=== PATIENT | male | born 1930 | race Caucasian/White ===

== ENCOUNTER 2018-09-02 12:16 | Inpatient (IN) | payer MEDICARE, OTHER ==
[~2018-09-02] VITALS: Ht 172.7 cm; Wt 113.4 kg
[2018-09-02 12:20] VITALS: BP 127/72
--- NOTE | 2018-09-02 12:20 | NUR ---
ED Nurse Note: PT brought by [facility] from rehab center [facility] [place] due to ALOC. per EMS, pt was tachycardia and low pulse oximetry in RA which was 88%. upon arrival pt on 15L via NR and maintained 100%. RN changed to 3L via NC and maintained >94% due to pt has COPD. respirations even and non-labored noted. wheezing audiable. skin warm to touch. rashes noted on back below scrotum. pt had 1 x BM. cleaned. AAO x1. response to name and minimal pain. came with IV access that inserted by LAFD. 99.5 F rectal temp noted. on monitoring manager. will wait for the further order.
[2018-09-02] MEDS ORDERED: Solu-MEDROL 125mg Inj IVP ONE (12:45)
[2018-09-02] MEDS ORDERED: Albuterol ud Inhalation HHN ONE (12:45)
[2018-09-02] MEDS ORDERED: Ipratropium 0.02% Inh Soln 2.5ml UD HHN ONE (12:45)
[2018-09-02 13:00] VITALS: BP 132/51
[2018-09-02 13:12] LABS: APPEARANCE,URINE VERY CLOUDY; BILIRUBIN, URINE NEGATIVE (NEGATIVE); COLOR,URINE PALE YELLOW; GLUCOSE, URINE (UA) NEGATIVE (NEGATIVE); KETONES,URINE NEGATIVE (NEGATIVE); LEUKOCYTE ESTERASE ,URINE 3+ (NEGATIVE); NITRITE,URINE NEGATIVE (NEGATIVE); PH,URINE 6 (4.5-8.0); PROTEIN,URINE 3+ (NEGATIVE); UROBILINOGEN,URINE NORMAL MG/DL (0.0-1.0)
[2018-09-02 13:17] LABS: BASOPHILS % (AUTO) 2.9 % (0.0-2.0); EOSINOPHILS % (AUTO) 10.5 % (0.0-3.0); HEMATOCRIT 45.1 % (42.0-52.0); HEMOGLOBIN 15.1 G/DL (14.2-18.0); MEAN CORPUSCULAR VOLUME 96 FL (80-99); MONOCYTES % (AUTO) 13.4 % (1.0-10.0); NEUTROPHILS % (AUTO) 37.2 % (45.0-75.0); PLATELET COUNT 245 K/UL (150-450); RED BLOOD COUNT 4.72 M/UL (4.70-6.10); WHITE BLOOD COUNT 5.1 K/UL (4.8-10.8)
[2018-09-02 13:18] LABS: ANION GAP 10 mmol/L (5-15); BLOOD UREA NITROGEN 24 mg/dL (7-18); CALCIUM 8.9 MG/DL (8.5-10.1); CARBON DIOXIDE 27 MMOL/L (21-32); CHLORIDE 107 MMOL/L (98-107); CREATININE 1.4 MG/DL (0.55-1.30); SODIUM 144 MMOL/L (136-145)
--- NOTE | 2018-09-02 13:20 | NUR ---
ED Nurse Note: family member requested to be transferred to [facility] ER due to pt is been follow up there. RN educated the family member we can not do that at this time but will give update information.
[2018-09-02 13:34] LABS: ALANINE AMINOTRANSFERASE 56 U/L (12-78); ALBUMIN/GLOBULIN RATIO 0.8 (1.0-2.7); ALKALINE PHOSPHATASE 62 U/L (46-116); ASPARTATE AMINO TRANSFERASE 28 U/L (15-37); BILIRUBIN,TOTAL 0.5 MG/DL (0.2-1.0); CKMB < 0.5 NG/ML (0.0-3.6); CREATINE KINASE 9 U/L (26-308)
--- NOTE | 2018-09-02 13:52 | Diagnostic Imaging Report ---
Indication: Dyspnea Comparison: None A single view chest radiograph was obtained. Findings: Patchy infiltrates present bilaterally in the right infrahilar region and upper lobes. The upper lobe foci have a streaky linear appearance and could be scarring or atelectasis. There are no previous studies for comparison. Heart is enlarged. There is a pacemaker on the left. Bones are osteopenic. IMPRESSION: Suspected right pulmonary infiltrate. Upper lobe densities may be scarring.
[2018-09-02 14:00] VITALS: BP 101/77
[2018-09-02] MEDS ORDERED: DICYCLOMINE HCL10 MG PO (14:06)
[2018-09-02] MEDS ORDERED: ATORVASTATIN CA80 MG ORAL (14:06)
[2018-09-02] MEDS ORDERED: ALLOPURINOL100 M1 ORAL (14:06)
[2018-09-02] MEDS ORDERED: ASPIR 8181 MG ORAL (14:06)
[2018-09-02] MEDS ORDERED: PROSCAR5 MG ORAL (14:06)
[2018-09-02] MEDS ORDERED: BREO ELLIPTA 11 EACH IH (14:06)
[2018-09-02] MEDS ORDERED: ARICEPT10 MG ORAL (14:06)
[2018-09-02] MEDS ORDERED: METOPROLOL SUCC50 MG ORAL (14:06)
[2018-09-02] MEDS ORDERED: MELATONIN3 M1 ORAL (14:06)
[2018-09-02] MEDS ORDERED: AMIODARONE HCL400 M1 ORAL (14:06)
[2018-09-02] MEDS ORDERED: NEXIUM40 MG ORAL (14:08)
[2018-09-02] MEDS ORDERED: MYRBETRIQ25 MG PO (14:08)
[2018-09-02] MEDS ORDERED: NAMENDA10 MG ORAL (14:08)
[2018-09-02] MEDS ORDERED: Ertapenem 1 GM in NS 55 ML IVPB ONE (14:15)
[2018-09-02 15:00] VITALS: BP_SYST 106; BP_SYST 110; BP_DIAS 40; BP_DIAS 50
--- NOTE | 2018-09-02 15:15 | Emergency Room Report ---
History of Present Illness General Chief Complaint: Altered Level of Consciousness Source: Family Member Present Illness HPI 87-year-old male presents ED for evaluation. Brought in by EMS from board and care for increased lethargy times one day. Patient appears tired. Afebrile. Patient has history of COPD. On oxygen. Patient unable to provide any additional history at this time. No signs of distress. No other aggravating relieving factors. No other associated symptoms Allergies: Coded Allergies: CEFTRIAXONE (Verified Allergy, Unknown, 09/02/18) LEVOFLOXACIN (Verified Allergy, Unknown, 09/02/18) VANCOMYCIN (Verified Allergy, Unknown, 09/02/18) Patient History Past Medical History: HTN, COPD, other - bladder cancer Past Surgical History: pacemaker Pertinent Family History: none Social History: Denies: smoking, alcohol use, drug use Immunizations: UTD Reviewed Nursing Documentation: PMH: Agreed; PSxH: Agreed Nursing Documentation-PMH Hx Hypertension: Yes Hx Pacemaker: Yes Hx COPD: Yes Hx Cancer: Yes - bladder Review of Systems All Other Systems: limited Physical Exam Vital Signs Date Time Temp Pulse Resp B/P (MAP) Pulse Ox O2 Delivery O2 Flow Rate FiO2 09/02/18 12:10 97.5 106 20 122/68 80 Room Air 09/02/18 12:20 3.0 09/02/18 12:53 100 Sp02 EP Interpretation: reviewed, normal General Appearance: alert, GCS 15, non-toxic, lethargic Head: normocephalic Eyes: bilateral eye normal inspection, bilateral eye PERRL ENT: normal ENT inspection Neck: normal inspection Respiratory: wheezing Cardiovascular #1: regular rate, rhythm, no edema Gastrointestinal: normal bowel sounds, non tender, soft, non-distended, no guarding, no rebound Rectal: deferred Genitourinary: no CVA tenderness Musculoskeletal: normal inspection Neurologic: other - lethargic Psychiatric: other - lethargic Skin: normal inspection Lymphatic: normal inspection Medical Decision Making Diagnostic Impression: Primary Impression: Altered level of consciousness Additional Impressions: UTI (urinary tract infection) Qualified Codes: N39.0 - Urinary tract infection, site not specified Pneumonia Qualified Codes: J18.1 - Lobar pneumonia, unspecified organism COPD (chronic obstructive pulmonary disease) Qualified Codes: J44.9 - Chronic obstructive pulmonary disease, unspecified ER Course Hospital Course 87-year-old M presenting to ED with SOB. h/o COPD. + lethargy Differential diagnoses include: Pneumonia, sepsis, UTI, dehyration Clinical course Patient placed on stretcher. On special service representative with stable vitals. After initial history and physical, I ordered nebulizer treatments. I ordered labs, IV fluids, EKG, chest x-ray, blood cultures, UA. Labs - no leukocytosis noted, hemoglobin/hematocrit stable, electrolytes okay, lactate okay, troponins negative, UA+ Bacteria CXR - R sided ifiltrate EKG - NSR, no acute ischemci changes interpreted by me Broad-spectrum antibiotics given. Discussed findings with family. They agreed to admission. Patient recently discharged from [facility] Case discussed with Dr. Lennon and he agreed to the patient to his service for further care and support I feel this is a highly complex case requiring extensive working including EKG/ Rhythm strip, Xray/CT/US, Blood/urine lab work, repeat exams while in ED, and administration of strong opiates/narcotics for pain control, admission to hospital or close patient follow up. Diagnosis - COPD exacerbation, ALOC, pneumonia, UTI Patient admitted to telemetry in serious condition Labs Test 09/02/18 12:25 09/02/18 12:40 09/02/18 13:20 White Blood Count 5.1 K/UL (4.8-10.8) Red Blood Count 4.72 M/UL (4.70-6.10) Hemoglobin 15.1 G/DL (14.2-18.0) Hematocrit 45.1 % (42.0-52.0) Mean Corpuscular Volume 96 FL (80-99) Mean Corpuscular Hemoglobin 32.1 PG (27.0-31.0) Mean Corpuscular Hemoglobin Concent 33.6 G/DL (32.0-36.0) Red Cell Distribution Width 13.0 % (11.6-14.8) Platelet Count 245 K/UL (150-450) Mean Platelet Volume 6.9 FL (6.5-10.1) Neutrophils (%) (Auto) 37.2 % (45.0-75.0) Lymphocytes (%) (Auto) 36.0 % (20.0-45.0) Monocytes (%) (Auto) 13.4 % (1.0-10.0) Eosinophils (%) (Auto) 10.5 % (0.0-3.0) Basophils (%) (Auto) 2.9 % (0.0-2.0) Sodium Level 144 MMOL/L (136-145) Potassium Level 4.0 MMOL/L (3.5-5.1) Chloride Level 107 MMOL/L (98-107) Carbon Dioxide Level 27 MMOL/L (21-32) Anion Gap 10 mmol/L (5-15) Blood Urea Nitrogen 24 mg/dL (7-18) Creatinine 1.4 MG/DL (0.55-1.30) Estimat Glomerular Filtration Rate mL/min (>60) Glucose Level 117 MG/DL (74-106) Lactic Acid Level 1.50 mmol/L (0.4-2.0) Calcium Level 8.9 MG/DL (8.5-10.1) Total Bilirubin 0.5 MG/DL (0.2-1.0) Aspartate Amino Transf (AST/SGOT) 28 U/L (15-37) Alanine Aminotransferase (ALT/SGPT) 56 U/L (12-78) Alkaline Phosphatase 62 U/L (46-116) Total Creatine Kinase 9 U/L (26-308) Creatine Kinase MB < 0.5 NG/ML (0.0-3.6) Creatine Kinase MB Relative Index 5.5 Troponin I 0.013 ng/mL (0.000-0.056) Pro-B-Type Natriuretic Peptide 308 pg/mL (0-125) Total Protein 6.7 G/DL (6.4-8.2) Albumin 3.0 G/DL (3.4-5.0) Globulin 3.7 g/dL Albumin/Globulin Ratio 0.8 (1.0-2.7) Urine Color Pale yellow Urine Appearance Very cloudy Urine pH 6 (4.5-8.0) Urine Specific [place] 1.010 (1.005-1.035) Urine Protein 3+ (NEGATIVE) Urine Glucose (UA) Negative (NEGATIVE) Urine Ketones Negative (NEGATIVE) Urine Blood 4+ (NEGATIVE) Urine Nitrite Negative (NEGATIVE) Urine Bilirubin Negative (NEGATIVE) Urine Urobilinogen Normal MG/DL (0.0-1.0) Urine Leukocyte Esterase 3+ (NEGATIVE) Urine RBC 5-10 /HPF (0 - 0) Urine WBC Tntc /HPF (0 - 0) Urine Squamous Epithelial Cells None /LPF (NONE/OCC) Urine Bacteria Few /HPF (NONE) Arterial Blood pH 7.433 (7.350-7.450) Arterial Blood Partial Pressure CO2 39.4 mmHg (35.0-45.0) Arterial Blood Partial Pressure O2 70.2 mmHg (75.0-100.0) Arterial Blood HCO3 25.7 mmol/L (22.0-26.0) Arterial Blood Oxygen Saturation 93.0 % (95-100) Arterial Blood Base Excess 1.5 (-2-2) Darci Test Positive EKG Diagnostic Results Rate: normal Rhythm: NSR ST Segments: no acute changes ASA given to the pt in ED: No Rhythm Strip Diag. Results EP Interpretation: yes Rhythm: NSR, no PVC's, no ectopy Chest X-Ray Diagnostic Results Chest X-Ray Diagnostic Results : Chest X-Ray Ordered: Yes # of Views/Limited/Complete: 1 View Indication: Shortness of Breath EP Interpretation: Yes Interpretation: no pneumothorax, other - R sided infiltrate Impression: Other - PNA Electronically Signed by: Electronically signed by Mannie Lozoya MD Last Vital Signs Date Time Temp Pulse Resp B/P (MAP) Pulse Ox O2 Delivery O2 Flow Rate FiO2 09/02/18 13:07 117 20 96 Non-Rebreather 10.0 100 09/02/18 12:20 99.5 127/72 Status: improved Disposition: ADMITTED INPATIENT Condition: Serious Referrals: Dyana Lennon MD (PCP) Mannie Lozoya MD Sep 02, 2018 15:15
[2018-09-02 16:00] VITALS: BP 111/47
--- NOTE | 2018-09-02 16:43 | Infectious Diseases Prog Note ---
Assessment/Plan Problems: (1) UTI (urinary tract infection) Assessment & Plan: will start meropenem empirically and obtain renal US (2) Altered level of consciousness Assessment & Plan: metabolic VS toxic , recommend brain MRI . neuro consult (3) Pneumonia Assessment & Plan: possible aspiration , due to altered metal status , already on meropenem, aspiration precaution (4) COPD (chronic obstructive pulmonary disease) Assessment & Plan: continue inhalers and antibiotics , titrate oxygen as needed (5) Bladder cancer Assessment & Plan: S/P prostatectomy and BCG treatment (6) History of lung cancer Assessment & Plan: S/P radiation therapy Subjective Allergies: Coded Allergies: CEFTRIAXONE (Verified Allergy, Unknown, 09/02/18) LEVOFLOXACIN (Verified Allergy, Unknown, 09/02/18) VANCOMYCIN (Verified Allergy, Unknown, 09/02/18) Objective Vital Signs Last 24 Hour Vital Signs Date Time Temp Pulse Resp B/P (MAP) Pulse Ox O2 Delivery O2 Flow Rate FiO2 09/02/18 15:00 98.3 88 17 106/40 97 Nasal Cannula 3.0 100 09/02/18 14:00 97 17 101/77 95 Nasal Cannula 3.0 09/02/18 13:07 117 20 96 Non-Rebreather 10.0 100 09/02/18 13:00 106 21 132/51 97 Nasal Cannula 3.0 09/02/18 12:53 112 20 96 Non-Rebreather 10.0 100 09/02/18 12:53 112 20 Non-Rebreather 10.0 100 09/02/18 12:20 102 14 Nasal Cannula 3.0 09/02/18 12:20 99.5 102 14 127/72 95 Nasal Cannula 3.0 09/02/18 12:10 97.5 106 20 122/68 80 Room Air Height (Feet): 5 Height (Inches): 8.00 Weight (Pounds): 250 Microbiology Date/Time Source Procedure Growth Status 09/02/18 12:10 Nasal Nares Influenza Types A,B Antigen ([facility]) - Final Complete Laboratory Tests Test 09/02/18 12:25 09/02/18 12:40 09/02/18 13:20 White Blood Count 5.1 K/UL (4.8-10.8) Red Blood Count 4.72 M/UL (4.70-6.10) Hemoglobin 15.1 G/DL (14.2-18.0) Hematocrit 45.1 % (42.0-52.0) Mean Corpuscular Volume 96 FL (80-99) Mean Corpuscular Hemoglobin 32.1 PG (27.0-31.0) H Mean Corpuscular Hemoglobin Concent 33.6 G/DL (32.0-36.0) Red Cell Distribution Width 13.0 % (11.6-14.8) Platelet Count 245 K/UL (150-450) Mean Platelet Volume 6.9 FL (6.5-10.1) Neutrophils (%) (Auto) 37.2 % (45.0-75.0) L Lymphocytes (%) (Auto) 36.0 % (20.0-45.0) Monocytes (%) (Auto) 13.4 % (1.0-10.0) H Eosinophils (%) (Auto) 10.5 % (0.0-3.0) H Basophils (%) (Auto) 2.9 % (0.0-2.0) H Sodium Level 144 MMOL/L (136-145) Potassium Level 4.0 MMOL/L (3.5-5.1) Chloride Level 107 MMOL/L (98-107) Carbon Dioxide Level 27 MMOL/L (21-32) Anion Gap 10 mmol/L (5-15) Blood Urea Nitrogen 24 mg/dL (7-18) H Creatinine 1.4 MG/DL (0.55-1.30) H Estimat Glomerular Filtration Rate mL/min (>60) Glucose Level 117 MG/DL (74-106) H Lactic Acid Level 1.50 mmol/L (0.4-2.0) Calcium Level 8.9 MG/DL (8.5-10.1) Total Bilirubin 0.5 MG/DL (0.2-1.0) Aspartate Amino Transf (AST/SGOT) 28 U/L (15-37) Alanine Aminotransferase (ALT/SGPT) 56 U/L (12-78) Alkaline Phosphatase 62 U/L (46-116) Total Creatine Kinase 9 U/L (26-308) L Creatine Kinase MB < 0.5 NG/ML (0.0-3.6) Creatine Kinase MB Relative Index 5.5 Troponin I 0.013 ng/mL (0.000-0.056) Pro-B-Type Natriuretic Peptide 308 pg/mL (0-125) H Total Protein 6.7 G/DL (6.4-8.2) Albumin 3.0 G/DL (3.4-5.0) L Globulin 3.7 g/dL Albumin/Globulin Ratio 0.8 (1.0-2.7) L Urine Color Pale yellow Urine Appearance Very cloudy Urine pH 6 (4.5-8.0) Urine Specific [place] 1.010 (1.005-1.035) Urine Protein 3+ (NEGATIVE) H Urine Glucose (UA) Negative (NEGATIVE) Urine Ketones Negative (NEGATIVE) Urine Blood 4+ (NEGATIVE) H Urine Nitrite Negative (NEGATIVE) Urine Bilirubin Negative (NEGATIVE) Urine Urobilinogen Normal MG/DL (0.0-1.0) Urine Leukocyte Esterase 3+ (NEGATIVE) H Urine RBC 5-10 /HPF (0 - 0) H Urine WBC Tntc /HPF (0 - 0) H Urine Squamous Epithelial Cells None /LPF (NONE/OCC) Urine Bacteria Few /HPF (NONE) Arterial Blood pH 7.433 (7.350-7.450) Arterial Blood Partial Pressure CO2 39.4 mmHg (35.0-45.0) Arterial Blood Partial Pressure O2 70.2 mmHg (75.0-100.0) L Arterial Blood HCO3 25.7 mmol/L (22.0-26.0) Arterial Blood Oxygen Saturation 93.0 % (95-100) L Arterial Blood Base Excess 1.5 (-2-2) Darci Test Positive Current Medications Medications (Trade) Dose Ordered Sig/Gaby Route PRN Reason Start Time Stop Time Status Last Admin Dose Admin Meropenem 1 gm/ Sodium Chloride 55 ml @ 110 mls/hr Q8HR IVPB 09/02/18 22:00 09/07/18 21:59 UNV Sodium Chloride 1,000 ml @ 100 mls/hr Q10H IV 09/02/18 14:45 10/02/18 14:44 09/02/18 14:46 Katelyn Nelson M.D. Sep 02, 2018 16:43
--- NOTE | 2018-09-02 17:19 | NUR ---
ED Nurse Note: reports given to RIGOBERTO Doe. will bring pt up after pt came back from CT head.
--- NOTE | 2018-09-02 17:42 | Diagnostic Imaging Report ---
Indication: Altered level of consciousness Technique: Contiguous 5 mm thick transaxial imaging of the head obtained in a Siemens Sensation [address] scanner. Soft tissue and bone windows generated. Automatic Exposure Control was utilized. Total Dose length Product (DLP): 1378.[address] Dose Index Volume (CTDIvol): 70.38 mGy Comparison: none Findings: There is moderate prominence of the ventricles, basal cisterns, and cerebral sulci consistent with atrophy. The ventricles are disproportionately enlarged. Moderate, nonspecific, white matter hypoattenuation is noted throughout the brain consistent with chronic small vessel disease. The study is significantly limited by motion. There is no midline shift, edema, acute hemorrhage, mass effect, or abnormal extra-axial fluid collections. Bones and extra osseous soft tissues are unremarkable. The right mastoid air cells are partially opacified. Impression: No acute intracranial bleed, mass effect or edema. Disproportionate enlargement of the ventricles. Normal pressure hydrocephalus not excluded. atrophy of the brain. Evidence of chronic small vessel disease involving white matter tracts. Right mastoiditis Study limited by motion The CT scanner at [facility] is accredited by the [employer] [employer] and the scans are performed using dose optimization techniques as appropriate to a performed exam including Automatic Exposure control.
--- NOTE | 2018-09-02 17:52 | NUR ---
NURSE NOTES: dReceived pt from Anya FRANKLIN. Pt is asleep with family at bed side. Pt is currently undergoing a ultrasound. Belongings list is in chart. IV is patent with no swelling or redness noted.
[2018-09-02] MEDS: Albuterol/Ipratropium 3ml neb HHN SCH ×2 (19:28→23:34)
--- NOTE | 2018-09-02 19:45 | History and Physical Report ---
DATE OF ADMISSION: 09/02/2018 CHIEF COMPLAINT: Respiratory distress and altered mental status. HISTORY OF PRESENT ILLNESS: This is an 87-year-old [place] male with a history of bladder cancer status post TURP and BCG in July 2017, history of non-small cell lung cancer status post radiation therapy in 2014, and history of vascular dementia, coronary artery disease, and sick sinus syndrome, status post pacemaker and history of COPD with dyspnea and encephalopathy. The patient was recently discharged from [facility] last week and was in the rehabilitation of [place]. The patient noticed this morning to have shortness of breath and was started on 4 liter of nasal cannula with O2 saturation of 88% at the rehabilitation. The patient also was slightly altered at the rehabilitation and can runner was called in and the patient was brought in for evaluation at [facility]. In the emergency room, the patient had a chest x-ray done showing patchy infiltrates bilaterally with the right infrahilar region and upper lobe infiltrate. He also had UA done that was consistent with a urinary tract infection. In the emergency room, the patient was started on ertapenem IV x1 dose for urinary tract infection. He will be admitted and we will have Pulmonary and ID evaluate the patient while in the hospital. 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 PAST SURGICAL HISTORY: Includes bladder biopsy with retrograde pyelogram, bronchoscopy, cystoscopy in 2012 and 2015 and then again cystoscopy in 2013 and 2015, again, history of pacemaker placement and mediastinoscopy, TURP in 04/23/2018, history of a ureteral stent placement and removal. FAMILY HISTORY: Includes history of cancer in the blood brother. No other cancer in the mother, sister, or father. ALLERGIES: Allergy to Levaquin and Rocephin and vancomycin. REVIEW OF SYSTEMS: Negative except for HPI. HOME MEDICATIONS: Please follow the medication list from the rehabilitation. PHYSICAL EXAMINATION: VITAL SIGNS: Temperature 98.3, pulse 88, respiration is 17, blood pressure 106/48, pulse ox 97% on 3 liters nasal cannula. GENERAL APPEARANCE: Alert. He is lethargic and not responding to commands. HEENT: Normocephalic, normochromic. Extraocular muscles intact. Throat is clear. NECK: Supple. No lymphadenopathy. LUNGS: Clear to auscultation bilaterally. Decreased breath sounds. CARDIOVASCULAR: Regular rate and rhythm. No murmur. No gallop. ABDOMEN: Soft, nontender, nondistended. Positive bowel sounds. EXTREMITIES: No edema, cyanosis, or clubbing. +2 pulses bilaterally. SKIN: No rash. NEUROLOGICAL: Does not respond to commands. Slightly hard to arouse, but stable. LABORATORY AND DIAGNOSTIC DATA: Include WBC 5.1, hemoglobin is 15.1, hematocrit 45.1, platelet count 245, neutrophils 37.2, lymphocytes 36, monos 13.4, eosinophils 10.5, basophils 2.9. Sodium 144, potassium 4, carbon dioxide 27, BUN 24, creatinine 1.4, glucose 117, lactic acid 1.5. Calcium 8.9. AST 28, ALT 56, alkaline phosphatase 62, total creatine kinase is 9. Troponin is less than 0.013. BNP 308. Protein is 6.7, albumin 3, globulin is 3.7, and UA showed very cloudy urine, +3 urine protein, +4 urine blood, and +3 leukocyte esterase, 5 to 10 RBCs, too many to count and WBC and few bacteria. Chest x-ray showed light pulmonary infiltrate in upper lobe at the density. EKG, normal sinus rhythm, no acute ischemic changes. IMPRESSION AND PLAN: The patient is an 87-year-old male with history of bladder cancer, status post transurethral resection of prostate and BCG in July 2017 with chronic obstructive pulmonary disease and vascular dementia and non-small cell lung cancer status post radiation in 2014, 2016, and 2018. 1. Urinary tract infection. We will start the patient on broad-spectrum antibiotic, meropenem and have ID follow the patient. 2. Hospital-acquired pneumonia and hypoxic respiratory failure, improved on breathing nasal cannula. We will start the patient on IV antibiotic to cover for pneumonia with meropenem. We will have Pulmonary see the patient while in-house. Blood and urine cultures will be sent and followed up. 3. Vascular dementia. We will continue home Namenda and Aricept. 4. Coronary artery disease. No ischemia on EKG. We will follow the patient on aspirin and Lipitor. Troponin is negative. 5. Chronic obstructive pulmonary disease. We will have breathing treatment. We will continue his Singulair, Advair, and have Pulmonary see the patient. 6. Hypertension. We will continue home medications, metoprolol-XL, right lower lobe non-small cell lung cancer status post radiation. We will have the patient follow up with his oncologist as an outpatient. 7. Sick sinus syndrome status post pacemaker placement. 8. BPH. We will continue home medications. 9. History of gout. No acute changes or flare up. We will continue allopurinol for now. The patient will be admitted for minimum of two-night stay for the diagnosis of urinary tract infection and pneumonia and will be discharged back to the rehabilitation following the admission. Dyana Lennon M.D. DR: RENAY JOB#: [id number] CC: [email or web address]
[2018-09-02 20:00] VITALS: BP 133/67
--- NOTE | 2018-09-02 20:00 | Consultation ---
DATE OF CONSULTATION: INFECTIOUS DISEASES CONSULTATION CONSULTING PHYSICIAN: Katelyn Nelson M.D. REQUESTING PHYSICIAN: Dyana Lennon M.D. REASON FOR CONSULTATION: UTI, possible aspiration pneumonia in an immunocompromised patient with multiple antibiotics allergy due to Levaquin, Rocephin, and vancomycin recommendation for antibiotics treatment. HISTORY OF PRESENT ILLNESS: The patient is an 87-year-old male with past medical history of bladder cancer status post TURP and BCG in July 2017, vascular dementia, coronary artery disease, sick sinus syndrome status post pacemaker placement, right lower lobe non-small cell lung cancer status post radiation therapy in 2014, 2016, and 2017, and COPD, who was recently admitted at [facility] from beginning of July until mid August with dyspnea and encephalopathy. The patient was found to have UTI due to lactobacillus. He had a blood culture, which grew coag-negative staph from 1 set only. The patient was treated with Zosyn initially for five days or so and he was observed in the hospital. He did not have any positive culture apart from the blood culture and urine culture. During his hospital stay, his blood culture was most likely contaminant with coag-negative staph, which he had it twice. The patient subsequently was discharged to [facility] for rehabilitation. The patient became altered, unresponsive and hypoxemic as per the [facility] report. When paramedics arrived. He was saturating 88%, but his saturation improved after he was placed on Ventimask. The patient was brought in to [facility] for further evaluation and management. The patient had a chest x-ray, which showed right pulmonary infiltrate and upper lobe density may be scarring, which was concerning for aspiration pneumonia. His urinalysis showed evidence of infection with too numerous white count, so Infectious Disease consultation was requested for antibiotics treatment and further management since he is allergic to multiple antibiotics including ceftriaxone, levofloxacin, and vancomycin. As of note, the patient is altered, unresponsive, cannot provide any history at this point. History was mainly obtained from the medical record and nursing staff. REVIEW OF SYSTEMS: Unable to obtain. The patient is altered, cannot provide any history. PAST MEDICAL HISTORY: Significant for benign prostatic hypertrophy, bladder cancer status post TURP and BCG, coronary artery disease, atrial fibrillation, COPD, GERD, hearing loss, hyperlipidemia hypertension, malignant neoplasm of the right lower lobe of the lung status post radiation, sick sinus syndrome status post pacemaker, and vascular dementia. PAST SURGICAL HISTORY: He had bladder biopsy with retrograde pyelogram, bronchoscopy, cystoscopy with mitomycin installation, pacemaker placement, mediastinoscopy, retrograde pyelogram, transurethral resection of bladder tumor, ureteral stent. FAMILY HISTORY: Significant for cancer in brother. No significant medical problem in his father, mother, and sister. ALLERGIES: He is allergic to Levaquin with rash, ceftriaxone unclear reason, and vancomycin with itching and pain at the site. MEDICATIONS: The patient received ertapenem in the emergency room. For the rest of his medications, please refer to MAR. LABORATORY DATA: Laboratories showed white count of 5.1, hemoglobin of 15.1, platelet count of 245,000. BUN of 24, creatinine of 1.4. AST of 28, ALT of 56. BNP of 308. Albumin of 3. Urinalysis showed +3 leukocyte esterase, 5 to 10 red blood cells, WBC too numerous to count, and few bacteria. Microbiology, influenza screening A and B both negative. IMAGING: Chest x-ray showed right pulmonary infiltrate upper lobe density, may be scarring. PHYSICAL EXAMINATION: VITAL SIGNS: Temperature 99.5, pulse 102, respirations 14, blood pressure 127/72, saturation 95% on 3 liters nasal cannula. GENERAL: Elderly male, lying in bed, altered, and unresponsive. Not in acute distress. HEENT: Normocephalic and atraumatic. Pupils minimally reactive to light. Moist oral mucosa. No exudate or thrush. NECK: Supple. No lymphadenopathy. CARDIOVASCULAR: Tachycardic. S1, S2 normal. No murmur or gallop. LUNGS: He had diminished breathing sounds at the bases with fine crackles. No wheezing or rhonchi. Normal breathing efforts. ABDOMEN: Soft, obese, nontender, and nondistended. Normal bowel sounds. No hepatosplenomegaly or ascites. EXTREMITIES: No edema or cyanosis. SKIN: He had mild redness in the perianal area due to diaper rash. No hives. No ulceration. ASSESSMENT AND RECOMMENDATION: 1. UTI in a patient with history of bladder cancer status post prostate resection and BCG treatment. We will send urine for culture. Start the patient on meropenem empiric coverage pending culture. We will order ultrasound to rule out obstruction. 2. Possible aspiration pneumonia due to altered mental status with right-sided infiltration. The patient will be on meropenem already to cover for pneumonia with aspiration precaution, keep head of bed more than 30-degree all the time. Monitor chest x-ray. 3. Altered level of consciousness, metabolic versus toxic. Recommend brain image to rule out any acute pathology and neuro consult. Keep NPO for now with aspiration precaution. 4. COPD. Continue inhalers with antibiotics, titrate oxygen as needed. 5. Bladder cancer status post TURP and BCG treatment, seems to be stable at this point. The patient will need follow up by his oncologist in the future. 6. History of lung cancer status post radiation therapy. Pulmonary team has been consulted for further evaluation. Thank you for the consult. ID will continue to follow. Please feel free to call with any question. Katelyn Nelson M.D. DR: SHIMON JOB#: [id number] CC:
--- NOTE | 2018-09-02 20:13 | NUR ---
HAND-OFF: Report given to RIGOBERTO Maddox. Plan of care endorsed
--- NOTE | 2018-09-02 20:30 | NUR ---
NURSE NOTES: Received report from RIGOBERTO Doe. Patient asleep, breathing even and unlabored on 4 L via NC, assessed by RT, changed to Venturi mask at 15 L at 55%, O2 sat at 96%. IV site on L hand #18, patent and intact. On condom catheter with yellow-colored output. No skin breakdown noted. Family members present at bedside and very involved with the care. Per son and daughter, patient is confused and does not communicate even in the SNF. sinus rhythm with 1st AVB at the desk monitor. Bed at lowest position, call light within reach. Will continue plan of care.
[2018-09-02] MEDS: Atorvastatin 80mg tab ORAL SCH (21:00)
[2018-09-02] MEDS: Dicyclomine 10mg Cap ORAL SCH (21:00)
[2018-09-02] MEDS: Meropenem 1 GM in NS 55 ML IVPB SCH (21:07)
--- NOTE | 2018-09-02 21:10 | NUR ---
NURSE NOTES: Patient asleep, opens eyes but closed them again, nonverbal, no s/sx of pain nor any discomfort noted. Still on Venturi mask at 15 L, RT assessed pt, O2 sat at 96%. Family members present at bedside, awaiting for Renal ultrasound result, spoke with tech, already sent to [facility]. Unable to give meds PO, pt's mouth swab with water but not swallowing anything at this time. ON ST for swallow eval. Keep patient clean dn dry. Will continue to monitor.
[2018-09-02] MEDS: Heparin 5000 units/ml inj SUBQ SCH (21:11)
[2018-09-03] VITALS: BP 126/62
--- NOTE | 2018-09-03 03:26 | NUR ---
NURSE NOTES: Patient asleep, breathing even and unlabored, O2 sat at 95%. Turned and repositioned at least q 2 hours, no s/sx of pain nor any discomfort at this time. Bed at lowest position, call light within reach. Will continue to monitor.
[2018-09-03 04:00] VITALS: BP 126/59
--- NOTE | 2018-09-03 07:27 | NUR ---
HAND-OFF: Report given to RIGOBERTO Mckeon. Endorsed plan of care.
[2018-09-03] MEDS: Albuterol/Ipratropium 3ml neb HHN SCH (07:39)
--- NOTE | 2018-09-03 07:40 | NUR ---
NURSE NOTES: Received report from Gloria FRANKLIN. Pt is awake, alert, oriented x1-2, Farsi speaking, able to communicate very minimal basic needs, per family pt has confusion. On 4L of oxygen via nasal cannula at sP02 94-96%. No signs/symptoms of any pain or discomfort noted or reported by pt. Condom cath in place draining clear/dark yellow urine. Skin is intact, however has redness in the perineal area, open to air, mireille-care completed by previous shift, will reassess and provide skin care as needed throughout my shift. Pt has ST eval ordered for today, was able to tolerate tea with soft easy chew diet with head of bed elevated at high worley's. Pt is currently placed on fall precautions, with bed in lowest position, two side rails up, brakes engaged, alarm on, and call light within easy reach. Will continue to monitor pt and follow plan of care per MD orders and protocol. Addendum: 09/03/18 at 1658 by ELADIO GAMA RN Per ST bedside eval recommendation, diet has been changed to Pureed Moist with nectar thick liquids, family aware. Pt is tolerating well.
[2018-09-03 08:00] VITALS: BP 138/79
[2018-09-03 08:21] LABS: ANION GAP 11 mmol/L (5-15); BLOOD UREA NITROGEN 26 mg/dL (7-18); CALCIUM 9.5 MG/DL (8.5-10.1); CARBON DIOXIDE 26 MMOL/L (21-32); CHLORIDE 108 MMOL/L (98-107); CREATININE 1.2 MG/DL (0.55-1.30); POTASSIUM 4.3 MMOL/L (3.5-5.1); SODIUM 145 MMOL/L (136-145)
[2018-09-03] MEDS: Heparin 5000 units/ml inj SUBQ SCH (09:29)
[2018-09-03] MEDS: Metoprolol Succinate XL 50mg tab ORAL SCH (09:32)
[2018-09-03] MEDS: Allopurinol 100mg Tab ORAL SCH (09:32)
[2018-09-03] MEDS: Meropenem 1 GM in NS 55 ML IVPB SCH ×2 (09:32→20:28)
[2018-09-03] MEDS: Donepezil 10mg tab ORAL SCH (09:32)
[2018-09-03] MEDS: Aspirin EC 81mg tab ORAL SCH (09:32)
[2018-09-03] MEDS: Memantine 10mg tab ORAL SCH ×2 (09:33→17:13)
[2018-09-03] MEDS: Amiodarone 200mg tab ORAL SCH (09:33)
[2018-09-03] MEDS: Dicyclomine 10mg Cap ORAL SCH ×4 (09:44→20:29)
[2018-09-03 10:01] LABS: BASOPHILS % (AUTO) 0.2 % (0.0-2.0); HEMATOCRIT 34.9 % (42.0-52.0); HEMOGLOBIN 11.1 G/DL (14.2-18.0); MEAN CORPUSCULAR VOLUME 91 FL (80-99); MONOCYTES % (AUTO) 3.3 % (1.0-10.0); NEUTROPHILS % (AUTO) 82.6 % (45.0-75.0); PLATELET COUNT 104 K/UL (150-450); RED BLOOD COUNT 3.83 M/UL (4.70-6.10); RED CELL DISTRIBUTION WIDTH 20.6 % (11.6-14.8); WHITE BLOOD COUNT 5.2 K/UL (4.8-10.8)
--- NOTE | 2018-09-03 10:03 | Consultation ---
Consult Note Assessment/Plan DICT # [id number] Elias Quinones MD Sep 03, 2018 10:03
[2018-09-03] MEDS: Advair 250/50 Inhaler - 14 dose INH SCH ×2 (10:15→18:00)
[2018-09-03 12:00] VITALS: BP 120/67
--- NOTE | 2018-09-03 12:00 | Consultation ---
DATE OF CONSULTATION: 09/03/2018 PULMONARY CONSULTATION CONSULTING PHYSICIAN: Elias Quinones M.D. REFERRING PHYSICIAN: Dyana Lennon M.D. REASON FOR CONSULTATION: Possible pneumonia and COPD exacerbation. HISTORY OF PRESENT ILLNESS: The patient is an 87-year-old male, former smoker with a history of bladder cancer status post TURP, vascular dementia, CAD, sick sinus syndrome status post pacemaker, lung cancer status post radiation in 2014, 2016 and 2017, and COPD, who was recently admitted at [facility] in July and August. The patient at that time had a lactobacillus UTI and coag-negative Staph sepsis. He was discharged to the rehabilitation center where he became unresponsive and hypoxemic. When paramedics arrived, he was 88% and improved to Venturi mask. He came to the hospital for further evaluation. Chest x-ray showed a right-sided pulmonary infiltrate and right upper lobe density. His UA was done with vhf-oqmkxvos-tw-count white cells. The patient has a lot of antibiotic resistance. He was seen by Dr. Nelson. On my interview in [facility], the patient denies any complaints. Denies any cough, congestion, or shortness of breath. He has been saturating well on room air. His ABG was 7.38/44/82/26/94. No leukocytosis. Cultures, no growth. Chest x-ray done and reviewed by myself shows a possible infiltrate in the right. 08/12/2018, CT of the chest at [facility] shows stable postradiation changes in the right lower lobe and decrease in right upper lobe reticulonodular opacities. Some micronodules were seen, which were stable compared to 05/07/2018. He has severe pulmonary emphysema. He was last seen by his sports journalist, Dr. Barahona on 08/20/2018, and the patient was treated for COPD exacerbation versus aspiration at that time. Of note, the patient's last swallow evaluation on 08/07/2018 at [facility], he passed a puree with thin liquids. PAST MEDICAL HISTORY: 1. Non-small cell lung cancer, status post radiation. 2. COPD. 3. BPH, status post TURP and BCG. 4. CAD. 5. AFib. 6. GERD. 7. Vascular dementia. 8. Sick sinus syndrome, status post pacemaker. PAST SURGICAL HISTORY: TURBT, bronchoscopy, mitomycin instillation, BCG, pacemaker, cardiac catheterization, and ureteral stent. ALLERGIES: Levaquin, ceftriaxone, and vancomycin. MEDICATIONS: Prior to admission medications reviewed. Current medications reviewed. SOCIAL HISTORY: Prior tobacco, none current. No drug or alcohol. FAMILY HISTORY: Cancer in his brother. Otherwise noncontributory. REVIEW OF SYSTEMS: Negative other than history of present illness and limited given his dementia. PHYSICAL EXAMINATION: VITAL SIGNS: Temperature 98.2 degrees, pulse 81, blood pressure 126/59, and respiratory rate 18. Saturating 94% on room air. GENERAL: He is an elderly demented male, in no acute distress. Awake, alert, and oriented x3. HEENT: Normocephalic and atraumatic. Oropharynx with moist mucous membranes. NECK: Supple without lymphadenopathy or JVD. CHEST: Scattered coarse, clear with coughing. HEART: Regular rate and rhythm. ABDOMEN: Soft and nondistended. EXTREMITIES: No cyanosis, clubbing or edema. ANCILLARY DATA: Sodium 145, potassium 4.3, chloride 108, bicarbonate 26, gap 11, BUN 26, and creatinine 1.2. Glucose 136. Lactic acid 1.5. Calcium 9.5. LFTs normal. White count 5.1, hemoglobin 15.1, and platelet count 245. ABG, 7.38/44/82/26/94. Urinalysis, 3+ protein, 4+ blood, and 3+ leukocyte esterase. Influenza A and B, no growth. CT of the head, no acute findings. Disproportionate enlargement of the ventricles. Normal-pressure hydrocephalus not excluded. Evidence of chronic small vessel disease, right mastoiditis. Chest x-ray reviewed by myself. Right pulmonary infiltrate, upper lobe density, likely scarring. Last CT of the chest from [facility] on 08/12/2018 shows postradiation changes in the right lower lobe, decreased reticulonodular opacities right upper lobe, scattered micro-nodules, cardiomegaly, and pulmonary emphysema. ASSESSMENT: The patient is an 87-year-old male with a history of non-small cell lung carcinoma status post radiation therapy in 2014, 2016 and 2017, chronic obstructive pulmonary disease, bladder cancer status post transurethral resection of prostate and BCG instillation July 2017, vascular dementia, coronary artery disease, sick sinus syndrome, and atrial fibrillation status post pacemaker, presenting from a nursing facility with altered mental status, likely encephalopathy. He does have changes suggestive of pneumonia on his chest x-ray, but these are chronic and lot of combination of postradiation changes and likely resolving infiltrates. He does not appear infected from a respiratory standpoint, though he does have urinary tract infection at this point for which he is being treated. He also likely has an exacerbation of his underlying chronic obstructive pulmonary disease. PROBLEM LIST: 1. COPD with acute exacerbation. 2. Non-small cell lung carcinoma status post XRT in 2014, 2016 and 2017. 3. Right upper lobe infiltrates, likely resolving pneumonia. 4. Postradiation changes, right lower lobe. 5. Scattered bilateral pulmonary opacities. 6. UTI. 7. Vascular dementia. 8. Altered mental status, likely encephalopathy on top of underlying dementia. 9. Sick sinus syndrome, status post pacemaker. 10. Bladder cancer, status post BCG and TURBT. 11. Dysphagia. TREATMENT PLAN: 1. Optimize pulmonary hygiene/mobilize as tolerated. 2. Titrate on FiO2 to keep saturations greater than 90%. 3. Continue Spiriva and Advair. 4. Vzkab-hgn-mqdhh and p.r.n. bronchodilators. 5. Prednisone 40 mg (today is day #2). 6. Antibiotics per ID. 7. Aspiration precautions. 8. Swallow evaluation. 9. DVT prophylaxis, heparin subcutaneous. 10. The patient is a Full Code. 11. Monitor volumes and renal function. Dr. Lennon, thank you for allowing me to assist in the care of your patient. If I may be of any assistance in the future, please do not hesitate to ask. Elias Quinones M.D. DR: MOO JOB#: [id number] CC:
--- NOTE | 2018-09-03 15:00 | NUR ---
NURSE NOTES: Per mechanical maintenance technician, pt's heart rhythm fluctuated by converting from SR/1st degree AVB to AFib. ECG done, result given to MDs, both Dr Willams and Dr Lennon at pt's bedside, with pt's son and other family members present. Currently pt is resting comfortably, able to communicate with MD's and answer questions, in no apparent distress. No further orders at this time.
--- NOTE | 2018-09-03 15:05 | Infectious Diseases Prog Note ---
Assessment/Plan Problems: (1) UTI (urinary tract infection) Assessment & Plan: continue meropenem empirically pending culture, await renal US to rule out obstruction (2) Altered level of consciousness Assessment & Plan: metabolic VS toxic , had CT brain since can't have MRI due to pacemaker, didn't show any acute pathology . improved (3) Pneumonia Assessment & Plan: possible aspiration , due to altered metal status , already on meropenem, continue aspiration precaution. swallow eval when fully awake (4) COPD (chronic obstructive pulmonary disease) Assessment & Plan: continue inhalers and antibiotics , titrate oxygen as needed (5) Bladder cancer Assessment & Plan: S/P prostatectomy and BCG treatment , follow up with oncology (6) History of lung cancer Assessment & Plan: S/P radiation therapy Subjective Constitutional: Reports: no symptoms HEENT: Reports: no symptoms Respiratory: Reports: dry cough Breasts: Reports: no symptoms Cardiovascular: Reports: no symptoms Gastrointestinal/Abdominal: Reports: no symptoms Genitourinary: Reports: no symptoms Neurologic: Reports: weakness Psychiatric: Reports: no symptoms Skin: Reports: no symptoms Endocrine: Reports: no symptoms Hematologic: Reports: no symptoms Musculoskeletal: Reports: no symptoms Allergies: Coded Allergies: CEFTRIAXONE (Verified Allergy, Unknown, 09/02/18) LEVOFLOXACIN (Verified Allergy, Unknown, 09/02/18) VANCOMYCIN (Verified Allergy, Unknown, 09/02/18) Objective Vital Signs Last 24 Hour Vital Signs Date Time Temp Pulse Resp B/P (MAP) Pulse Ox O2 Delivery O2 Flow Rate FiO2 09/03/18 10:23 94 18 95 Nasal Cannula 4.0 36 09/03/18 10:22 94 18 95 Nasal Cannula 4.0 36 09/03/18 10:20 94 18 94 Nasal Cannula 4.0 36 09/03/18 10:15 94 18 94 Nasal Cannula 4.0 36 09/03/18 09:32 80 138/79 09/03/18 09:00 Venturi Mask 15.0 Venturi Mask 15.0 09/03/18 08:00 97.8 80 22 138/79 (98) 96 09/03/18 08:00 83 09/03/18 07:49 81 20 98 Room Air 21 09/03/18 07:40 84 20 Room Air 21 09/03/18 07:39 85 20 94 Room Air 21 2/19/19 04:00 81 09/03/18 04:00 98.2 74 18 126/59 (81) 96 09/03/18 00:00 83 09/03/18 00:00 98.3 83 17 126/62 (83) 96 09/02/18 23:44 82 20 98 Venturi Mask 10.0 45 09/02/18 23:32 79 20 93 Venturi Mask 15.0 55 09/02/18 21:00 Venturi Mask 15.0 Venturi Mask 15.0 09/02/18 20:00 98.1 81 18 133/67 (89) 94 09/02/18 20:00 82 09/02/18 19:37 89 20 97 Venturi Mask 14.0 55 09/02/18 19:30 85 22 Nasal Cannula 4.0 36 09/02/18 19:28 87 22 92 Nasal Cannula 4.0 36 09/02/18 19:19 Nasal Cannula 3.0 Nasal Cannula 4.0 09/02/18 17:20 98.5 79 15 116/43 95 Nasal Cannula 3.0 100 09/02/18 16:00 98.6 82 17 111/47 96 Nasal Cannula 3.0 100 09/02/18 15:00 98.3 88 17 106/40 97 Nasal Cannula 3.0 100 Height (Feet): 5 Height (Inches): 8.00 Weight (Pounds): 250 General Appearance: WD/WN, no acute distress HEENT: normocephalic, atraumatic, anicteric, mucous membranes moist, PERRL, pharynx normal, supple, no JVD Respiratory/Chest: chest wall non-tender, normal breath sounds, no respiratory distress, no accessory muscle use, expiratory wheezing Cardiovascular: normal peripheral pulses, normal rate, regular rhythm, no gallop/murmur, no JVD Abdomen: normal bowel sounds, soft, non tender, no organomegaly, non distended , no mass, no scars Extremities: no cyanosis, no clubbing Skin: no rash, no lesions, no ulcers Neurologic/Psychiatric: alert, responsive Lymphatic: no neck adenopathy, no groin adenopathy Musculoskeletal: normal muscle bulk, no effusion Microbiology Date/Time Source Procedure Growth Status 09/02/18 12:10 Nasal Nares Influenza Types A,B Antigen ([facility]) - Final Complete 09/02/18 12:40 Urine,Clean Catch Urine Culture - Preliminary NO GROWTH Resulted Laboratory Tests Test 09/02/18 20:50 09/03/18 05:47 09/03/18 09:10 Arterial Blood pH 7.382 (7.350-7.450) Arterial Blood Partial Pressure CO2 44.7 mmHg (35.0-45.0) Arterial Blood Partial Pressure O2 82.3 mmHg (75.0-100.0) Arterial Blood HCO3 26.0 mmol/L (22.0-26.0) Arterial Blood Oxygen Saturation 94.8 % (95-100) L Arterial Blood Base Excess 0.6 (-2-2) Darci Test Positive Sodium Level 145 MMOL/L (136-145) Potassium Level 4.3 MMOL/L (3.5-5.1) Chloride Level 108 MMOL/L (98-107) H Carbon Dioxide Level 26 MMOL/L (21-32) Anion Gap 11 mmol/L (5-15) Blood Urea Nitrogen 26 mg/dL (7-18) H Creatinine 1.2 MG/DL (0.55-1.30) Estimat Glomerular Filtration Rate mL/min (>60) Glucose Level 136 MG/DL (74-106) H Calcium Level 9.5 MG/DL (8.5-10.1) White Blood Count 5.2 K/UL (4.8-10.8) Red Blood Count 3.83 M/UL (4.70-6.10) L Hemoglobin 11.1 G/DL (14.2-18.0) L Hematocrit 34.9 % (42.0-52.0) L Mean Corpuscular Volume 91 FL (80-99) Mean Corpuscular Hemoglobin 28.9 PG (27.0-31.0) Mean Corpuscular Hemoglobin Concent 31.7 G/DL (32.0-36.0) L Red Cell Distribution Width 20.6 % (11.6-14.8) H Platelet Count 104 K/UL (150-450) #L Mean Platelet Volume 7.1 FL (6.5-10.1) Neutrophils (%) (Auto) 82.6 % (45.0-75.0) H Lymphocytes (%) (Auto) 14.0 % (20.0-45.0) L Monocytes (%) (Auto) 3.3 % (1.0-10.0) Eosinophils (%) (Auto) 0.0 % (0.0-3.0) Basophils (%) (Auto) 0.2 % (0.0-2.0) Current Medications Medications (Trade) Dose Ordered Sig/Gaby Route PRN Reason Start Time Stop Time Status Last Admin Dose Admin Albuterol/ Ipratropium (Albuterol/ Ipratropium) 3 ml Q6HRT HHN 09/02/18 19:00 09/07/18 18:59 09/03/18 07:39 Allopurinol (Zyloprim) 100 mg DAILY ORAL 09/03/18 09:00 10/03/18 08:59 09/03/18 09:32 Amiodarone HCl (Cordarone) 100 mg DAILY ORAL 09/03/18 09:00 10/03/18 08:59 09/03/18 09:33 Aspirin (Ecotrin) 81 mg DAILY ORAL 09/03/18 09:00 10/03/18 08:59 09/03/18 09:32 Atorvastatin Calcium (Lipitor) 80 mg BEDTIME ORAL 09/02/18 21:00 10/02/18 20:59 Dicyclomine HCl (Bentyl) 10 mg QID ORAL 09/02/18 21:00 10/02/18 20:59 09/03/18 14:45 Donepezil HCl (Aricept) 10 mg DAILY ORAL 09/03/18 09:00 10/03/18 08:59 09/03/18 09:32 Finasteride (Proscar) 5 mg DAILY ORAL 09/03/18 09:00 10/03/18 08:59 09/03/18 09:33 Heparin Sodium (Porcine) (Heparin 5000 units/ml) 5,000 units EVERY 12 HOURS SUBQ 09/02/18 21:00 10/02/18 20:59 09/03/18 09:29 Ipratropium [place] (Atrovent) 500 mcg Q6HRT HHN 09/03/18 15:00 09/08/18 14:59 Memantine (Namenda) 10 mg BID ORAL 09/03/18 09:00 10/03/18 08:59 09/03/18 09:33 Meropenem 1 gm/ Sodium Chloride 55 ml @ 110 mls/hr Q12HR IVPB 09/02/18 21:00 09/07/18 20:59 09/03/18 09:32 Metoprolol Succinate (Toprol XL) 50 mg DAILY ORAL 09/03/18 09:00 10/03/18 08:59 09/03/18 09:32 Pantoprazole (Protonix) 40 mg DAILY ORAL 09/03/18 09:00 10/03/18 08:59 09/03/18 09:33 Prednisone (predniSONE) 40 mg DAILY ORAL 09/03/18 09:00 10/03/18 08:59 09/03/18 09:33 Salmeterol Xinafoate/ Fluticasone (Advair 250/50 Diskus) 1 puffs BID INH 09/03/18 09:00 10/03/18 08:59 09/03/18 10:15 Tiotropium [place] (Spiriva Inhaler) 1 puff DAILY INH 09/03/18 09:00 10/03/18 08:59 09/03/18 10:14 Katelyn Nelson M.D. Sep 03, 2018 15:05
--- NOTE | 2018-09-03 15:13 | Diagnostic Imaging Report ---
Indication: Abnormal renal function tests, history of hypertension and bladder cancer Technique: Grayscale and duplex images of the kidneys, retroperitoneum, and bladder were obtained. Comparison: none Findings: Right kidney measures 13.7 cm in length. Left kidney measures 12.6 cm in length. Both kidneys demonstrate normal echogenicity. There is bilateral moderate hydronephrosis. Left ureteral jet is noted in the bladder. The left kidney demonstrates a 5.6 cm cyst. Normal inferior vena cava. Bladder is normal, volume 58 mL. Patient had no urge to void at the time the exam. Impression: Bilateral hydronephrosis, etiology not demonstrated Left renal cyst incidentally noted. This agrees with the preliminary interpretation provided overnight by [facility] teleradiology service.
--- NOTE | 2018-09-03 15:32 | Cardiology Report ---
APPROVED REPORT EKG Measurement Heart [id number] Sinus tachycardia with 1st degree AV block Left axis deviation Incomplete right bundle branch block Abnormal ECG
--- NOTE | 2018-09-03 15:42 | Cardiac Electrophysiology PN ---
Subjective Subjective [id number] Objective Last 24 Hour Vital Signs Date Time Temp Pulse Resp B/P (MAP) Pulse Ox O2 Delivery O2 Flow Rate FiO2 09/03/18 10:23 94 18 95 Nasal Cannula 4.0 36 09/03/18 10:22 94 18 95 Nasal Cannula 4.0 36 09/03/18 10:20 94 18 94 Nasal Cannula 4.0 36 09/03/18 10:15 94 18 94 Nasal Cannula 4.0 36 09/03/18 09:32 80 138/79 09/03/18 09:00 Venturi Mask 15.0 Venturi Mask 15.0 09/03/18 08:00 97.8 80 22 138/79 (98) 96 09/03/18 08:00 83 09/03/18 07:49 81 20 98 Room Air 21 09/03/18 07:40 84 20 Room Air 21 09/03/18 07:39 85 20 94 Room Air 21 09/03/18 04:00 81 09/03/18 04:00 98.2 74 18 126/59 (81) 96 09/03/18 00:00 83 09/03/18 00:00 98.3 83 17 126/62 (83) 96 09/02/18 23:44 82 20 98 Venturi Mask 10.0 45 09/02/18 23:32 79 20 93 Venturi Mask 15.0 55 09/02/18 21:00 Venturi Mask 15.0 Venturi Mask 15.0 09/02/18 20:00 98.1 81 18 133/67 (89) 94 09/02/18 20:00 82 09/02/18 19:37 89 20 97 Venturi Mask 14.0 55 09/02/18 19:30 85 22 Nasal Cannula 4.0 36 09/02/18 19:28 87 22 92 Nasal Cannula 4.0 36 09/02/18 19:19 Nasal Cannula 3.0 Nasal Cannula 4.0 09/02/18 17:20 98.5 79 15 116/43 95 Nasal Cannula 3.0 100 09/02/18 16:00 98.6 82 17 111/47 96 Nasal Cannula 3.0 100 Intake and Output 09/02/18 09/03/18 19:00 07:00 Intake Total 655 ml 60 ml Output Total 200 ml Balance 455 ml 60 ml Intake Oral 0 ml 60 ml IV Total 655 ml Output Urine Total 200 ml # Voids 3 # Bowel Movements 1 Laboratory Tests Test 09/02/18 20:50 09/03/18 05:47 09/03/18 09:10 Arterial Blood pH 7.382 (7.350-7.450) Arterial Blood Partial Pressure CO2 44.7 mmHg (35.0-45.0) Arterial Blood Partial Pressure O2 82.3 mmHg (75.0-100.0) Arterial Blood HCO3 26.0 mmol/L (22.0-26.0) Arterial Blood Oxygen Saturation 94.8 % (95-100) L Arterial Blood Base Excess 0.6 (-2-2) Darci Test Positive Sodium Level 145 MMOL/L (136-145) Potassium Level 4.3 MMOL/L (3.5-5.1) Chloride Level 108 MMOL/L (98-107) H Carbon Dioxide Level 26 MMOL/L (21-32) Anion Gap 11 mmol/L (5-15) Blood Urea Nitrogen 26 mg/dL (7-18) H Creatinine 1.2 MG/DL (0.55-1.30) Estimat Glomerular Filtration Rate mL/min (>60) Glucose Level 136 MG/DL (74-106) H Calcium Level 9.5 MG/DL (8.5-10.1) White Blood Count 5.2 K/UL (4.8-10.8) Red Blood Count 3.83 M/UL (4.70-6.10) L Hemoglobin 11.1 G/DL (14.2-18.0) L Hematocrit 34.9 % (42.0-52.0) L Mean Corpuscular Volume 91 FL (80-99) Mean Corpuscular Hemoglobin 28.9 PG (27.0-31.0) Mean Corpuscular Hemoglobin Concent 31.7 G/DL (32.0-36.0) L Red Cell Distribution Width 20.6 % (11.6-14.8) H Platelet Count 104 K/UL (150-450) #L Mean Platelet Volume 7.1 FL (6.5-10.1) Neutrophils (%) (Auto) 82.6 % (45.0-75.0) H Lymphocytes (%) (Auto) 14.0 % (20.0-45.0) L Monocytes (%) (Auto) 3.3 % (1.0-10.0) Eosinophils (%) (Auto) 0.0 % (0.0-3.0) Basophils (%) (Auto) 0.2 % (0.0-2.0) Microbiology Date/Time Source Procedure Growth Status 09/02/18 12:10 Nasal Nares Influenza Types A,B Antigen ([facility]) - Final Complete 09/02/18 12:40 Urine,Clean Catch Urine Culture - Preliminary NO GROWTH Resulted Reji Willams MD Sep 03, 2018 15:42
--- NOTE | 2018-09-03 15:43 | General Progress Note ---
Assessment/Plan Status: stable Assessment/Plan 1. UTI - Cont Meropenem per ID. follow up urine cx. 2. Pneumonia probably resolving pneumonia - recently discharged from [facility]. 3, HTN- controlled 4. A fib - on Amioderone and rubber heel and sole press tender is following the patient 5. Bladder CA 6. Non-Small Cell Lung CA s/p XRT in 2014, 2016 and 2018. 7. COPD with acute exacerbation - improved. cont current therapy. 8. BPH, status post TURP and BCG. 9. CAD 10. GERD 11. Vascular dementia 12. Sick sinus syndrome, status post pacemaker 13. Encephalopathy probably due to UTI - improved. 14. Thrombocytopenia probably heparin induced - will D/C heparin and start SCD. Subjective Date patient seen: Sep 03, 2018 Constitutional: Reports: weakness HEENT: Reports: no symptoms Cardiovascular: Reports: no symptoms Respiratory: Reports: no symptoms Gastrointestinal/Abdominal: Reports: no symptoms Genitourinary: Reports: no symptoms Neurologic/Psychiatric: Reports: no symptoms Endocrine: Reports: no symptoms Hematologic/Lymphatic: Reports: no symptoms Allergies: Coded Allergies: CEFTRIAXONE (Verified Allergy, Unknown, 09/02/18) LEVOFLOXACIN (Verified Allergy, Unknown, 09/02/18) VANCOMYCIN (Verified Allergy, Unknown, 09/02/18) Subjective Today, he is doing better. He is awake and respond to command. no sob or chest pain. no fever or chills. Objective Last 24 Hour Vital Signs Date Time Temp Pulse Resp B/P (MAP) Pulse Ox O2 Delivery O2 Flow Rate FiO2 09/03/18 10:23 94 18 95 Nasal Cannula 4.0 36 09/03/18 10:22 94 18 95 Nasal Cannula 4.0 36 09/03/18 10:20 94 18 94 Nasal Cannula 4.0 36 09/03/18 10:15 94 18 94 Nasal Cannula 4.0 36 09/03/18 09:32 80 138/79 09/03/18 09:00 Venturi Mask 15.0 Venturi Mask 15.0 09/03/18 08:00 97.8 80 22 138/79 (98) 96 09/03/18 08:00 83 09/03/18 07:49 81 20 98 Room Air 21 09/03/18 07:40 84 20 Room Air 21 09/03/18 07:39 85 20 94 Room Air 21 09/03/18 04:00 81 09/03/18 04:00 98.2 74 18 126/59 (81) 96 09/03/18 00:00 83 09/03/18 00:00 98.3 83 17 126/62 (83) 96 09/02/18 23:44 82 20 98 Venturi Mask 10.0 45 09/02/18 23:32 79 20 93 Venturi Mask 15.0 55 09/02/18 21:00 Venturi Mask 15.0 Venturi Mask 15.0 09/02/18 20:00 98.1 81 18 133/67 (89) 94 09/02/18 20:00 82 09/02/18 19:37 89 20 97 Venturi Mask 14.0 55 09/02/18 19:30 85 22 Nasal Cannula 4.0 36 09/02/18 19:28 87 22 92 Nasal Cannula 4.0 36 09/02/18 19:19 Nasal Cannula 3.0 Nasal Cannula 4.0 09/02/18 17:20 98.5 79 15 116/43 95 Nasal Cannula 3.0 100 09/02/18 16:00 98.6 82 17 111/47 96 Nasal Cannula 3.0 100 Intake and Output 09/02/18 09/03/18 19:00 07:00 Intake Total 655 ml 60 ml Output Total 200 ml Balance 455 ml 60 ml Intake Oral 0 ml 60 ml IV Total 655 ml Output Urine Total 200 ml # Voids 3 # Bowel Movements 1 Laboratory Tests 09/02/18 20:50: Arterial Blood pH 7.382, Arterial Blood Partial Pressure CO2 44.7, Arterial Blood Partial Pressure O2 82.3, Arterial Blood HCO3 26.0, Arterial Blood Oxygen Saturation 94.8L, Arterial Blood Base Excess 0.6, Darci Test Positive 09/03/18 05:47: Sodium Level 145, Potassium Level 4.3, Chloride Level 108H, Carbon Dioxide Level 26, Anion Gap 11, Blood Urea Nitrogen 26H, Creatinine 1.2, Estimat Glomerular Filtration Rate , Glucose Level 136H, Calcium Level 9.5 09/03/18 09:10: White Blood Count 5.2, Red Blood Count 3.83L, Hemoglobin 11.1L, Hematocrit 34.9L , Mean Corpuscular Volume 91, Mean Corpuscular Hemoglobin 28.9, Mean Corpuscular Hemoglobin Concent 31.7L, Red Cell Distribution Width 20.6H, Platelet Count 104#L, Mean Platelet Volume 7.1, Neutrophils (%) (Auto) 82.6H, Lymphocytes (%) (Auto) 14.0L, Monocytes (%) (Auto) 3.3, Eosinophils (%) (Auto) 0.0, Basophils (%) (Auto) 0.2 Height (Feet): 5 Height (Inches): 8.00 Weight (Pounds): 250 General Appearance: no apparent distress EENT: normal ENT inspection Neck: non-tender, normal alignment, supple Cardiovascular: normal rate, regular rhythm Respiratory/Chest: chest wall non-tender, lungs clear, normal breath sounds Abdomen: normal bowel sounds, non tender, soft Extremities: normal range of motion, non-tender Edema: no edema noted Arm (L), no edema noted Arm (R), no edema noted Leg (L), no edema noted Leg (R), no edema noted Pedal (L), no edema noted Pedal (R), no edema noted Generalized Neurologic: alert, responsive Skin: warm/dry Lymphatic: normal anterior cervical (L), normal anterior cervical (R), normal posterior cervical (L), normal posterior cervical (R), normal submandibular (L) , normal submandibular (R), normal supraclavicular (L), normal supraclavicular ( R), normal axillary (L), normal axillary (R), normal inguinal (L), normal inguinal (R), normal other Dyana Lennon MD Sep 03, 2018 15:43
--- NOTE | 2018-09-03 15:48 | NUR ---
ST NOTE: BEDSIDE SWALLOW EVAL RECEIVED BEDSIDE SWALLOW EVAL ORDER CHART REVIEWED PRIOR THE EVALUATION PT IS A 87-YEAR-OLD FARSI-SPEAKING MALE WHO WAS ADMITTED DUE TO COPD AND POSS PNA(ASPIRATION RELATED) DYSPHAGIA RISK FACTORS: ADVANCED AGE, UTI, COPD, H/O MALIGNANT NEOPLASM OF BRONCHUS AND LUNG, S/P RADIATION THERAPY IN 2014, 2017 AND 2018, DEMENTIA, PACEMAKER, HTN, UTI, SEPSIS, MALIGNANT NEOPLASM OF BLADDER PLOF: PT WAS RECENTLY HOSPITALIZED AT [facility] AND PT WAS DISCHARGED TO REHAB [facility]. PER FAMILY, PT WAS ON PUREE WITH THIN LIQUIDS. PER FAMILY, A VIDEOSWALLOW STUDY WAS DONE AT [facility] A WEEK AGO INPATIENT, PT WAS ALSO ADMITTED FOR PNA. PT ASPIRATED.(FAMILY WAS UNABLE TO RECALL WHICH CONSISTENCY PT ASPIRATED ON) BUT CONTINUOUS MINER OPERATOR HELPER RECOMMENDED NO STRAW. CURRENT STATUS: PT SEEN AT BEDSIDE IN LATE AM. ALERT, COOPERATIVE, FOLLOWS DIRECTIONS, VERBAL, FAMILY IS AT BEDSIDE. PT WITH NC(4L). GIVEN PO TRIALS: THIN(TSP/CUP), NECTAR THICK(TSP) AND PUREE(TSP) INITIAL IMPRESSION: PROBABLE MILD TO MODERATE OR WORSENED OROPHARYNGEAL PT EDENTULOUS(PER FAMILY, PT HAS DENTURES) MILD INCREASED ORAL TRANSIT TIME AND OROPHARYNGEAL TRANSIT TIME, FAIR LARYNGEAL ELEVATION, PROBABLE DELAYED COUGHING WITH THIN(CUP), OTHERWISE, NO OVERT S/S OF ASPIRATION WITH THIN(TSP), NECTAR THICK(TSP) AND PUREE(TSP). HAS RISK FOR ASPIRATION. RECOMMENDATIONS: 1,. FOR QUALITY OF LIFE, CONTINUE ORAL DIET CHANGED DIET TO CARDIAC MOIST PUREE WITH NECTAR THICK LIQUIDS. 2. STRICT ASPIRATION PRECAUTIONS WITH 1TO1 FEEDING/ASSIST 3. HOLD OFF ON VIDEOSWALLOW STUDY AT THIS TIME(RECENT VIDEOSWALLOW WAS COMPLETED A WEEK AGO). 4. SKILLED ST SERVICE TO FOLLOW UP. D/W PT'S FAMILY AND AGREED WITH CURRENT POC. D/W RN. ESCOBAR. POSTED ASPIRATION PRECAUTIONS SIGN
[2018-09-03 16:00] VITALS: BP 129/75
--- NOTE | 2018-09-03 16:53 | NUR ---
NURSE NOTES: Per pt's family, pt was able to ambulate two weeks prior to admission, without any use of assistive devices, however has not ambulated since being admitted to [facility] and then to this hospital. Family is requesting PT eval. Will inform Dr Lennon, and obtain order as permitted by .
[2018-09-03] MEDS: Ipratropium 0.02% Inh Soln 2.5ml UD HHN SCH ×2 (16:57→19:00)
--- NOTE | 2018-09-03 19:51 | NUR ---
HAND-OFF: Report given to Gloria FRANKLIN. Pt is resting in bed in stable condition, with family at bedside. Endorsed plan of care.
--- NOTE | 2018-09-03 19:55 | NUR ---
NURSE NOTES: Received report from RIGOBERTO Mckeon. Patient awake, alert and verbally responsive. Family members present at bedside. IV site on L hand #18, patent and intact. Bed at lowest position, call light within reach. Fall precautions in place. Will continue plan of care.
[2018-09-03 20:00] VITALS: BP 134/57
[2018-09-03] MEDS: Atorvastatin 80mg tab ORAL SCH (20:28)
--- NOTE | 2018-09-03 21:30 | Consultation ---
DATE OF CONSULTATION: 09/03/2018 CARDIOLOGY CONSULTATION CONSULTING PHYSICIAN: Reji Willams M.D. REFERRING PHYSICIAN: Dyana Lennon M.D. REASON FOR CONSULTATION: Evaluation of the patient's pacemaker, hypertension and atrial fibrillation. HISTORY OF PRESENT ILLNESS: The patient is an 87-year-old [place] gentleman with history of hypertension and paroxysmal atrial fibrillation, on anticoagulation as well as amiodarone. He has a history of pacemaker implantation by Dr. Cortez. The pacemaker was last interrogated in April of 2018, which showed normal function. The patient also has history of bladder cancer, status post surgery and BCG in December of 2017. The patient also has right lower lobe non-small cell lung cancer, status post radiation therapy in 2014, 2016, and 2017 as well as COPD. The patient's most recent hospitalization was at [facility] from 07/20/2018 to 08/29/2018 for coagulase-negative bacteremia, sepsis, and encephalopathy. The patient was admitted with increasing shortness of breath and urinalysis showed too numerous to count wbc's. The patient also had chest x-ray, which showed right pulmonary infiltrate and right upper lobe density. REVIEW OF SYSTEMS: Negative other than what was mentioned in the history of present illness. PAST MEDICAL HISTORY: As mentioned above. ALLERGIES: He is allergic to Levaquin, ceftriaxone, and vancomycin. MEDICATIONS: Per reconciliation. FAMILY HISTORY: Noncontributory. SOCIAL HISTORY: Does not smoke or drink alcohol. PHYSICAL EXAMINATION: VITAL SIGNS: Show blood pressure of 138/79, pulse is 94, and respirations 18. HEAD AND NECK: Shows no JVD. LUNGS: Coarse rhonchi. CARDIOVASCULAR: Regular S1 and S2 with no gallop or murmur. The pacemaker is in left subclavian. ABDOMEN: Soft. EXTREMITIES: 1+ pitting edema. LABORATORY AND DIAGNOSTIC DATA: White count 5.7, hemoglobin 11.5, hematocrit 35, and platelet count of 104,000. Sodium 145, potassium 4.3, BUN 26, creatinine 1.2, and glucose of 136. Troponin is negative. BNP is 208. ASSESSMENT AND PLAN: 1. Paroxysmal atrial fibrillation. The patient is on amiodarone 100 mg daily and aspirin 81 mg daily. The patient is also on Toprol-XL 50 mg daily. 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 2. Status post pacemaker. We will try to find the brand of the pacemaker and interrogate the pacemaker for further evaluation. 3. Hypertension. Continue Toprol-XL 50 mg daily. 4. COPD. Further evaluation by Dr. Quinones. The patient is on Solu-Medrol and antibiotic as well as Advair and Spiriva. 5. Urinary tract infection, on meropenem empirically. 6. Bladder cancer. 7. History of lung cancer, status post radiation therapy. Thank you very much, Dr. Lennon, for allowing me to participate in the care of this patient. Please do not hesitate to contact me for any questions regarding my evaluation. The case was discussed in detail with the patient's son and daughter at the bedside. Reji Willams M.D. DR: JESSICA JOB#: [id number] CC:
[2018-09-04] VITALS: BP 138/71
[2018-09-04] MEDS: Ipratropium 0.02% Inh Soln 2.5ml UD HHN SCH ×4 (00:51→19:49)
--- NOTE | 2018-09-04 03:15 | NUR ---
NURSE NOTES: Patient awake, alert and responsive. Changed x 3, small BM, not diarrhea, also pt pulling out condom cath, instructed not to touch it. patient cleaned and went back to sleep. Keep bed at lowest position, SCD on, call light within reach. Will continue to monitor.
[2018-09-04 04:00] VITALS: BP 137/64
--- NOTE | 2018-09-04 07:24 | NUR ---
HAND-OFF: Report given to RIGOBERTO Johnson. Endorsed plan of care.
--- NOTE | 2018-09-04 07:25 | NUR ---
NURSE NOTES: Received report from RIGOBERTO Maddox. Patient awake, alert and verbally responsive. No signs and symptoms of acute distress noted at this time. Bed at lowest position with three side rails up. Call light and bed side table within reach. . Will continue to monitor and follow plan of care.
[2018-09-04 08:00] VITALS: BP 155/81
[2018-09-04] MEDS: Meropenem 1 GM in NS 55 ML IVPB SCH ×2 (08:36→20:57)
[2018-09-04] MEDS: Donepezil 10mg tab ORAL SCH (08:49)
[2018-09-04] MEDS: Aspirin EC 81mg tab ORAL SCH (08:49)
[2018-09-04] MEDS: Dicyclomine 10mg Cap ORAL SCH ×4 (08:49→20:57)
[2018-09-04] MEDS: Amiodarone 200mg tab ORAL SCH (08:49)
[2018-09-04] MEDS: Memantine 10mg tab ORAL SCH ×2 (08:49→17:38)
[2018-09-04] MEDS: Allopurinol 100mg Tab ORAL SCH (08:49)
[2018-09-04] MEDS: Metoprolol Succinate XL 50mg tab ORAL SCH (08:50)
[2018-09-04] MEDS: Advair 250/50 Inhaler - 14 dose INH SCH ×2 (09:16→19:49)
--- NOTE | 2018-09-04 09:51 | NUR ---
NURSE NOTES: Patient is positive for VRE Rectum. Charge nurse aware, Dr. Lennon and Dr. Nelsno aware. Patient is in contact isolation now.
[2018-09-04 12:00] VITALS: BP 118/64
--- NOTE | 2018-09-04 12:03 | Consultation ---
History of Present Illness General Chief Complaint: Altered Level of Consciousness Present Illness HPI 87-year-old male with a history of anxiety, bladder cancer, BCG in July 2017 , non-small cell lung cancer, vascular dementia and coronary artery disease. The pt is currently delirious and pw waxing and waning of consciousness. the pt has memory impairment and is easily agitated.the pt has no hi/si. I spoke to Dr. Sood and pt's son who gave consent to start the pt on medication for agitation. Allergies: Coded Allergies: CEFTRIAXONE (Verified Allergy, Unknown, 09/02/18) LEVOFLOXACIN (Verified Allergy, Unknown, 09/02/18) VANCOMYCIN (Verified Allergy, Unknown, 09/02/18) Medication History Scheduled Allopurinol* (Allopurinol*), 100 MG ORAL DAILY, (Reported) Amiodarone Hcl* (Amiodarone Hcl*), 100 MG ORAL DAILY, (Reported) Aspirin* (Aspir 81*), 81 MG ORAL DAILY, (Reported) Atorvastatin Calcium* (Lipitor*), 80 MG ORAL BEDTIME, (Reported) Dicyclomine Hcl* (Dicyclomine Hcl*), 10 MG PO QID, (Reported) Donepezil Hcl* (Aricept*), 10 MG ORAL DAILY, (Reported) Esomeprazole Magnesium (Nexium), 40 MG ORAL DAILY, (Reported) Finasteride* (Proscar*), 5 MG ORAL DAILY, (Reported) Fluticasone/Vilanterol (Breo Ellipta 100-25 Mcg INH), 1 EACH IH DAILY, (Reported ) Memantine Hcl* (Namenda*), 28 MG ORAL DAILY, (Reported) Metoprolol Succinate* (Metoprolol Succinate*), 50 MG ORAL DAILY, (Reported) Mirabegron (Myrbetriq), 25 MG PO DAILY, (Reported) Scheduled PRN Melatonin (Melatonin), 3 MG ORAL BEDTIME PRN for Insomnia, (Reported) Patient History Limited by: medical condition History Provided By: Medical Record, PMD Healthcare decision maker Resuscitation status Full Code Advanced Directive on File Past Medical/Surgical History Past Medical/Surgical History: (1) UTI (urinary tract infection) (2) Altered level of consciousness (3) Pneumonia (4) Bladder cancer (5) History of lung cancer (6) COPD (chronic obstructive pulmonary disease) Review of Systems Psychiatric: Reports: anxiety, depressed feelings, emotional problems, hallucinations ROS Narrative The nurse was next to bed. Physical Exam General Appearance: alert, confused, severe distress, agitated Last 24 Hour Vital Signs Date Time Temp Pulse Resp B/P (MAP) Pulse Ox O2 Delivery O2 Flow Rate FiO2 09/04/18 09:20 86 19 98 Nasal Cannula 4.0 36 09/04/18 09:20 86 19 98 Nasal Cannula 4.0 36 09/04/18 09:18 86 18 98 Nasal Cannula 4.0 36 09/04/18 09:16 86 16 98 Nasal Cannula 4.0 36 09/04/18 09:00 Nasal Cannula 4.0 Nasal Cannula 4.0 09/04/18 08:50 89 155/81 09/04/18 08:00 96.8 89 20 155/81 (105) 96 09/04/18 08:00 81 09/04/18 07:41 84 20 97 Nasal Cannula 4.0 36 09/04/18 07:29 81 24 93 Nasal Cannula 4.0 38 09/04/18 04:00 82 09/04/18 04:00 97.0 84 20 137/64 (88) 95 09/04/18 01:05 85 18 96 Nasal Cannula 4.0 38 09/04/18 00:52 90 18 94 Nasal Cannula 4.0 38 09/04/18 00:00 97.8 86 20 138/71 (93) 95 09/04/18 00:00 86 09/03/18 21:11 93 20 Nasal Cannula 5.0 38 09/03/18 21:04 Nasal Cannula 5.0 38 09/03/18 21:03 Nasal Cannula 5.0 38 09/03/18 21:00 Nasal Cannula 4.0 Nasal Cannula 4.0 09/03/18 20:55 Nasal Cannula 5.0 40 09/03/18 20:30 94 20 95 Nasal Cannula 5.0 40 09/03/18 20:00 98.1 94 20 134/57 (82) 94 09/03/18 20:00 94 09/03/18 17:07 95 18 95 Nasal Cannula 5.0 40 09/03/18 16:57 96 20 92 Nasal Cannula 5.0 40 09/03/18 16:00 97.5 104 21 129/75 (93) 91 09/03/18 16:00 112 Intake and Output 09/03/18 09/04/18 19:00 07:00 Intake Total 295 ml Balance 295 ml Intake Oral 240 ml IV Total 55 ml # Voids 3 4 # Bowel Movements 1 3 Laboratory Tests Test 09/04/18 06:40 White Blood Count Pending Red Blood Count Pending Hemoglobin Pending Hematocrit Pending Mean Corpuscular Volume Pending Mean Corpuscular Hemoglobin Pending Mean Corpuscular Hemoglobin Concent Pending Red Cell Distribution Width Pending Platelet Count Pending Mean Platelet Volume Pending Neutrophils (%) (Auto) Pending Lymphocytes (%) (Auto) Pending Monocytes (%) (Auto) Pending Eosinophils (%) (Auto) Pending Basophils (%) (Auto) Pending Sodium Level Pending Potassium Level Pending Chloride Level Pending Carbon Dioxide Level Pending Blood Urea Nitrogen Pending Creatinine Pending Estimat Glomerular Filtration Rate Pending Glucose Level Pending Calcium Level Pending Pro-B-Type Natriuretic Peptide 399 pg/mL (0-125) H Height (Feet): 5 Height (Inches): 8.00 Weight (Pounds): 250 Medications Current Medications Medications (Trade) Dose Ordered Sig/Gaby Route PRN Reason Start Time Stop Time Status Last Admin Dose Admin Acetaminophen (Tylenol) 650 mg Q6H PRN ORAL Mild Pain/Temp > 100.5 09/03/18 22:00 10/03/18 21:59 09/04/18 04:37 Allopurinol (Zyloprim) 100 mg DAILY ORAL 09/03/18 09:00 10/03/18 08:59 09/04/18 08:49 Amiodarone HCl (Cordarone) 100 mg DAILY ORAL 09/03/18 09:00 10/03/18 08:59 09/04/18 08:49 Aspirin (Ecotrin) 81 mg DAILY ORAL 09/03/18 09:00 10/03/18 08:59 09/04/18 08:49 Atorvastatin Calcium (Lipitor) 80 mg BEDTIME ORAL 09/02/18 21:00 10/02/18 20:59 09/03/18 20:28 Dicyclomine HCl (Bentyl) 10 mg QID ORAL 09/02/18 21:00 10/02/18 20:59 09/04/18 08:49 Donepezil HCl (Aricept) 10 mg DAILY ORAL 09/03/18 09:00 10/03/18 08:59 09/04/18 08:49 Finasteride (Proscar) 5 mg DAILY ORAL 09/03/18 09:00 10/03/18 08:59 09/04/18 08:48 Ipratropium Laurel (Atrovent) 500 mcg Q6HRT HHN 09/03/18 15:00 09/08/18 14:59 09/04/18 07:29 Memantine (Namenda) 10 mg BID ORAL 09/03/18 09:00 10/03/18 08:59 09/04/18 08:49 Meropenem 1 gm/ Sodium Chloride 55 ml @ 110 mls/hr Q12HR IVPB 09/02/18 21:00 09/07/18 20:59 09/04/18 08:36 Metoprolol Succinate (Toprol XL) 50 mg DAILY ORAL 09/03/18 09:00 10/03/18 08:59 09/04/18 08:50 Pantoprazole (Protonix) 40 mg DAILY ORAL 09/03/18 09:00 10/03/18 08:59 09/04/18 08:49 Prednisone (predniSONE) 40 mg DAILY ORAL 09/03/18 09:00 10/03/18 08:59 09/04/18 08:49 Salmeterol Xinafoate/ Fluticasone (Advair 250/50 Diskus) 1 puffs BID INH 09/03/18 09:00 10/03/18 08:59 09/04/18 09:16 Tiotropium [place] (Spiriva Inhaler) 1 puff DAILY INH 09/03/18 09:00 10/03/18 08:59 09/04/18 09:18 Assessment/Plan Problem List: (1) Acute metabolic encephalopathy ICD Codes: G93.41 - Metabolic encephalopathy SNOMED: [id number], [id number] Status: unchanged Assessment/Plan Seroquel 12.5mg po tid Seroquel prn dw nurse, son and Ramos Love MD Sep 04, 2018 12:03
[2018-09-04 12:09] LABS: HEMATOCRIT 34.3 % (42.0-52.0); HEMOGLOBIN 10.4 G/DL (14.2-18.0); MEAN CORPUSCULAR VOLUME 93 FL (80-99); PLATELET COUNT 93 K/UL (150-450); RED BLOOD COUNT 3.67 M/UL (4.70-6.10); RED CELL DISTRIBUTION WIDTH 21.4 % (11.6-14.8); WHITE BLOOD COUNT 5.5 K/UL (4.8-10.8)
[2018-09-04 12:16] LABS: ANION GAP 10 mmol/L (5-15); BLOOD UREA NITROGEN 26 mg/dL (7-18); CALCIUM 9.1 MG/DL (8.5-10.1); CARBON DIOXIDE 26 MMOL/L (21-32); CHLORIDE 109 MMOL/L (98-107); CREATININE 1.3 MG/DL (0.55-1.30); SODIUM 145 MMOL/L (136-145)
--- NOTE | 2018-09-04 15:09 | Cardiac Electrophysiology PN ---
Assessment/Plan Assessment/Plan 1. Paroxysmal atrial fibrillation. The patient is on amiodarone 100 mg daily and aspirin 81 mg daily and Toprol-XL 50 mg daily. 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 2. Status post pacemaker. We will try to find the brand of the pacemaker and interrogate the pacemaker for further evaluation. 3. Hypertension. Continue Toprol-XL 50 mg daily. 4. COPD. Further evaluation by Dr. Quinones. On Solu-Medrol and antibiotic as well as Advair and Spiriva. 5. Urinary tract infection, on meropenem empirically. 6. Bladder cancer. 7. History of lung cancer, status post radiation therapy. DW RN Subjective Subjective Comfortable in sinus tach with no events Objective Last 24 Hour Vital Signs Date Time Temp Pulse Resp B/P (MAP) Pulse Ox O2 Delivery O2 Flow Rate FiO2 09/04/18 13:30 90 20 98 Nasal Cannula 3.0 32 09/04/18 13:17 89 19 95 Nasal Cannula 4.0 36 09/04/18 09:20 86 19 98 Nasal Cannula 4.0 36 09/04/18 09:20 86 19 98 Nasal Cannula 4.0 36 09/04/18 09:18 86 18 98 Nasal Cannula 4.0 36 09/04/18 09:16 86 16 98 Nasal Cannula 4.0 36 09/04/18 09:00 Nasal Cannula 4.0 Nasal Cannula 4.0 09/04/18 08:50 89 155/81 09/04/18 08:00 96.8 89 20 155/81 (105) 96 09/04/18 08:00 81 09/04/18 07:41 84 20 97 Nasal Cannula 4.0 36 09/04/18 07:29 81 24 93 Nasal Cannula 4.0 36 09/04/18 04:00 82 09/04/18 04:00 97.0 84 20 137/64 (88) 95 09/04/18 01:05 85 18 96 Nasal Cannula 4.0 38 09/04/18 00:52 90 18 94 Nasal Cannula 4.0 38 09/04/18 00:00 97.8 86 20 138/71 (93) 95 09/04/18 00:00 86 09/03/18 21:11 93 20 Nasal Cannula 5.0 38 09/03/18 21:04 Nasal Cannula 5.0 38 09/03/18 21:03 Nasal Cannula 5.0 38 09/03/18 21:00 Nasal Cannula 4.0 Nasal Cannula 4.0 09/03/18 20:55 Nasal Cannula 5.0 40 09/03/18 20:30 94 20 95 Nasal Cannula 5.0 40 09/03/18 20:00 98.1 94 20 134/57 (82) 94 09/03/18 20:00 94 09/03/18 17:07 95 18 95 Nasal Cannula 5.0 40 09/03/18 16:57 96 20 92 Nasal Cannula 5.0 40 09/03/18 16:00 97.5 104 21 129/75 (93) 91 09/03/18 16:00 112 Intake and Output 09/03/18 09/04/18 19:00 07:00 Intake Total 295 ml Balance 295 ml Intake Oral 240 ml IV Total 55 ml # Voids 3 4 # Bowel Movements 1 3 Laboratory Tests Test 09/04/18 06:40 White Blood Count 5.5 K/UL (4.8-10.8) Red Blood Count 3.67 M/UL (4.70-6.10) L Hemoglobin 10.4 G/DL (14.2-18.0) L Hematocrit 34.3 % (42.0-52.0) L Mean Corpuscular Volume 93 FL (80-99) Mean Corpuscular Hemoglobin 28.2 PG (27.0-31.0) Mean Corpuscular Hemoglobin Concent 30.2 G/DL (32.0-36.0) L Red Cell Distribution Width 21.4 % (11.6-14.8) H Platelet Count 93 K/UL (150-450) L Mean Platelet Volume 6.8 FL (6.5-10.1) Neutrophils (%) (Auto) % (45.0-75.0) Lymphocytes (%) (Auto) % (20.0-45.0) Monocytes (%) (Auto) % (1.0-10.0) Eosinophils (%) (Auto) % (0.0-3.0) Basophils (%) (Auto) % (0.0-2.0) Differential Total Cells Counted 100 Neutrophils % (Manual) 76 % (45-75) H Lymphocytes % (Manual) 14 % (20-45) L Monocytes % (Manual) 2 % (1-10) Eosinophils % (Manual) 0 % (0-3) Basophils % (Manual) 0 % (0-2) Band Neutrophils 8 % (0-8) Platelet Estimate Decreased L Platelet Morphology Normal Polychromasia 1+ Hypochromasia 1+ Anisocytosis 2+ Sodium Level 145 MMOL/L (136-145) Potassium Level 5.0 MMOL/L (3.5-5.1) Chloride Level 109 MMOL/L (98-107) H Carbon Dioxide Level 26 MMOL/L (21-32) Anion Gap 10 mmol/L (5-15) Blood Urea Nitrogen 26 mg/dL (7-18) H Creatinine 1.3 MG/DL (0.55-1.30) Estimat Glomerular Filtration Rate mL/min (>60) Glucose Level 105 MG/DL (74-106) Calcium Level 9.1 MG/DL (8.5-10.1) Pro-B-Type Natriuretic Peptide 399 pg/mL (0-125) H Microbiology Date/Time Source Procedure Growth Status 09/02/18 12:50 Blood Blood Culture - Preliminary NO GROWTH AFTER 24 HOURS Resulted 09/02/18 12:30 Blood Blood Culture - Preliminary NO GROWTH AFTER 24 HOURS Resulted 09/02/18 12:40 Nasal Nares MRSA Culture - Final NO METHICILLIN RESISTANT STAPH AUREUS... Complete 09/02/18 12:10 Nasal Nares Influenza Types A,B Antigen ([facility]) - Final Complete 09/03/18 05:00 External Cath Urine Culture - Preliminary Resulted 09/02/18 12:40 Urine,Clean Catch Urine Culture - Preliminary NO GROWTH AFTER 24 HOURS Resulted 09/02/18 12:40 Rectum VRE Culture - Final Enterococcus Faecium - Vre Complete 09/02/18 12:40 Rectum - Final NO CARBAPENEM-RESISTANT ENTEROBACTERI... Complete Objective HEAD AND NECK: Shows no JVD. LUNGS: Coarse rhonchi. CARDIOVASCULAR: Regular S1 and S2 with no gallop or murmur. The pacemaker is in left subclavian. ABDOMEN: Soft. EXTREMITIES: 1+ pitting edema. Reji Willams MD Sep 04, 2018 15:09
--- NOTE | 2018-09-04 15:23 | NUR ---
P.T Note: P.T evaluation completed and treatment initiated. Please refer to P.T evaluation for current functional status. Skilled P.T service is warranted to improve strength, balance and endurance to improve safety and independence with ADL/functional mobility and gait. Recommend return to prior living arrangement with continued P.T. at DC. Addendum: 09/04/18 at 1523 by CHARLEY JOHANSEN PT Amended: Links added.
--- NOTE | 2018-09-04 15:41 | Cardiology Report ---
APPROVED REPORT EXAM: Two-dimensional and M-mode echocardiogram with Doppler and color Doppler. INDICATION Congestive Heart Failure M-Mode DIMENSIONS IVSd1.2 (0.7-1.1cm)Left Atrium (MM)2.3 (1.6-4.0cm) LVDd4.2 (3.5-5.6cm)Aortic Root3.2 (2.0-3.7cm) PWd0.9 (0.7-1.1cm)Aortic Cusp Exc.1.6 (1.5-2.0cm) IVSs1.4 cm LVDs2.9 (2.5-4.0cm) PWs1.2 cm Normal left ventricular chamber size, systolic function and wall motion. Left ventricular ejection fraction estimated to be 50-55%. Mild left ventricular hypertrophy by 2-D. Anterior Echo-free space, may be due to pericardial fat or effusion. All other cardiac chamber sizes are within normal limits. Mild aortic valve sclerosis with adequate cusp excursion. Mildly thickened mitral valve leaflets with normal excursion. Mild mitral annulus and aortic root calcification. Pulmonic valve not well visualized. IVC at size 2.0 without physiologic collapse . Pacemaker wire noted in right chambers. A color flow and spectral Doppler study was performed and revealed: No aortic regurgitation. Mild mitral regurgitation. Mild tricuspid regurgitation. Tricuspid systolic velocities suggests peak right ventricular systolic pressure of 46 mmHg,consistent with moderate pulmonary hypertension .
[2018-09-04 16:00] VITALS: BP 124/53
--- NOTE | 2018-09-04 16:32 | General Progress Note ---
Assessment/Plan Status: stable Assessment/Plan 1. UTI - Cont Meropenem per ID. follow up urine cx. 2. Pneumonia probably resolving pneumonia - recently discharged from [facility]. 3, HTN- controlled 4. A fib - on Amioderone and scrubber operator is following the patient. 5. Bladder CA 6. Non-Small Cell Lung CA s/p XRT in 2014, 2016 and 2018. 7. COPD with acute exacerbation - improved. cont current therapy. 8. BPH, status post TURP and BCG. 9. CAD 10. GERD 11. Vascular dementia 12. Sick sinus syndrome, status post pacemaker 13. Encephalopathy probably due to UTI - improved. 14. Thrombocytopenia probably heparin induced - cont SCD. Subjective Date patient seen: Sep 04, 2018 Time patient seen: 04:10 Constitutional: Reports: weakness HEENT: Reports: no symptoms Cardiovascular: Reports: no symptoms Respiratory: Reports: no symptoms Gastrointestinal/Abdominal: Reports: no symptoms Genitourinary: Reports: no symptoms Neurologic/Psychiatric: Reports: no symptoms Endocrine: Reports: no symptoms Hematologic/Lymphatic: Reports: no symptoms Allergies: Coded Allergies: CEFTRIAXONE (Verified Allergy, Unknown, 09/02/18) LEVOFLOXACIN (Verified Allergy, Unknown, 09/02/18) VANCOMYCIN (Verified Allergy, Unknown, 09/02/18) Subjective Today, he is slightly confused but he is awake and responds to command. no sob or chest pain. no fever or chills. Objective Last 24 Hour Vital Signs Date Time Temp Pulse Resp B/P (MAP) Pulse Ox O2 Delivery O2 Flow Rate FiO2 09/04/18 13:30 90 20 98 Nasal Cannula 3.0 32 09/04/18 13:17 89 19 95 Nasal Cannula 4.0 36 09/04/18 09:20 86 19 98 Nasal Cannula 4.0 36 09/04/18 09:20 86 19 98 Nasal Cannula 4.0 36 09/04/18 09:18 86 18 98 Nasal Cannula 4.0 36 09/04/18 09:16 86 16 98 Nasal Cannula 4.0 36 09/04/18 09:00 Nasal Cannula 4.0 Nasal Cannula 4.0 09/04/18 08:50 89 155/81 09/04/18 08:00 96.8 89 20 155/81 (105) 96 09/04/18 08:00 81 09/04/18 07:41 84 20 97 Nasal Cannula 4.0 36 09/04/18 07:29 81 24 93 Nasal Cannula 4.0 36 09/04/18 04:00 82 09/04/18 04:00 97.0 84 20 137/64 (88) 95 09/04/18 01:05 85 18 96 Nasal Cannula 4.0 38 09/04/18 00:52 90 18 94 Nasal Cannula 4.0 38 09/04/18 00:00 97.8 86 20 138/71 (93) 95 09/04/18 00:00 86 09/03/18 21:11 93 20 Nasal Cannula 5.0 38 09/03/18 21:04 Nasal Cannula 5.0 38 09/03/18 21:03 Nasal Cannula 5.0 38 09/03/18 21:00 Nasal Cannula 4.0 Nasal Cannula 4.0 09/03/18 20:55 Nasal Cannula 5.0 40 09/03/18 20:30 94 20 95 Nasal Cannula 5.0 40 09/03/18 20:00 98.1 94 20 134/57 (82) 94 09/03/18 20:00 94 09/03/18 17:07 95 18 95 Nasal Cannula 5.0 40 09/03/18 16:57 96 20 92 Nasal Cannula 5.0 40 Intake and Output 09/03/18 09/04/18 19:00 07:00 Intake Total 295 ml Balance 295 ml Intake Oral 240 ml IV Total 55 ml # Voids 3 4 # Bowel Movements 1 3 Laboratory Tests 09/04/18 06:40: White Blood Count 5.5, Red Blood Count 3.67L, Hemoglobin 10.4L, Hematocrit 34.3L , Mean Corpuscular Volume 93, Mean Corpuscular Hemoglobin 28.2, Mean Corpuscular Hemoglobin Concent 30.2L, Red Cell Distribution Width 21.4H, Platelet Count 93L, Mean Platelet Volume 6.8, Neutrophils (%) (Auto) , Lymphocytes (%) (Auto) , Monocytes (%) (Auto) , Eosinophils (%) (Auto) , Basophils (%) (Auto) , Differential Total Cells Counted 100, Neutrophils % ( Manual) 76H, Lymphocytes % (Manual) 14L, Monocytes % (Manual) 2, Eosinophils % ( Manual) 0, Basophils % (Manual) 0, Band Neutrophils 8, Platelet Estimate DecreasedL, Platelet Morphology Normal, Polychromasia 1+, Hypochromasia 1+, Anisocytosis 2+, Sodium Level 145, Potassium Level 5.0, Chloride Level 109H, Carbon Dioxide Level 26, Anion Gap 10, Blood Urea Nitrogen 26H, Creatinine 1.3, Estimat Glomerular Filtration Rate , Glucose Level 105, Calcium Level 9.1, Pro-B -Type Natriuretic Peptide 399H Height (Feet): 5 Height (Inches): 8.00 Weight (Pounds): 250 General Appearance: no apparent distress, confused Neck: non-tender, normal alignment, supple Cardiovascular: normal peripheral pulses, normal rate, regular rhythm Respiratory/Chest: chest wall non-tender, lungs clear, normal breath sounds Abdomen: normal bowel sounds, non tender, soft Extremities: normal range of motion, non-tender Edema: no edema noted Arm (L), no edema noted Arm (R), no edema noted Leg (L), no edema noted Leg (R), no edema noted Pedal (L), no edema noted Pedal (R), no edema noted Generalized Neurologic: responsive, motor weakness Skin: warm/dry Lymphatic: normal anterior cervical (L), normal anterior cervical (R), normal posterior cervical (L), normal posterior cervical (R), normal submandibular (L) , normal submandibular (R), normal supraclavicular (L), normal supraclavicular ( R), normal axillary (L), normal axillary (R), normal inguinal (L), normal inguinal (R), normal other Dyana Lennon MD Sep 04, 2018 16:32
--- NOTE | 2018-09-04 19:15 | NUR ---
NURSE NOTES: Received report from Simeon Galindo RN. Pt is sleeping in the bed, arousable by voice stimuli, w/o distress in 2L NC. SR in the monitor. Safety measures are applied w/ bed alarm on, bed in lowest position, side rails up x3. Call light and side table are w/in reach. Staff is giving new IV site d/t previous site was d/c per pt. Will follow plans of care.
--- NOTE | 2018-09-04 19:19 | Infectious Diseases Prog Note ---
Assessment/Plan Problems: (1) UTI (urinary tract infection) Assessment & Plan: continue meropenem empirically pending culture, renal US ruled out obstruction (2) Altered level of consciousness Assessment & Plan: improving , had CT brain since can't have MRI due to pacemaker, didn't show any acute pathology , continue neuro check , avoid sedatives (3) Pneumonia Assessment & Plan: possible aspiration , due to altered metal status , already on meropenem, continue aspiration precaution. recommend swallow eval when fully awake (4) COPD (chronic obstructive pulmonary disease) Assessment & Plan: continue inhalers and antibiotics , titrate oxygen as needed (5) Bladder cancer Assessment & Plan: S/P prostatectomy and BCG treatment , follow up with oncology (6) History of lung cancer Assessment & Plan: S/P radiation therapy Subjective Constitutional: Reports: no symptoms HEENT: Reports: no symptoms Respiratory: Reports: no symptoms Breasts: Reports: no symptoms Cardiovascular: Reports: no symptoms Gastrointestinal/Abdominal: Reports: no symptoms Genitourinary: Reports: no symptoms Neurologic: Reports: confusion Psychiatric: Reports: no symptoms Skin: Reports: no symptoms Endocrine: Reports: no symptoms Hematologic: Reports: no symptoms Musculoskeletal: Reports: no symptoms Allergies: Coded Allergies: CEFTRIAXONE (Verified Allergy, Unknown, 09/02/18) LEVOFLOXACIN (Verified Allergy, Unknown, 09/02/18) VANCOMYCIN (Verified Allergy, Unknown, 09/02/18) Objective Vital Signs Last 24 Hour Vital Signs Date Time Temp Pulse Resp B/P (MAP) Pulse Ox O2 Delivery O2 Flow Rate FiO2 09/04/18 16:00 75 09/04/18 16:00 97.3 89 20 124/53 (76) 94 09/04/18 13:30 90 20 98 Nasal Cannula 3.0 32 09/04/18 13:17 89 19 95 Nasal Cannula 4.0 36 09/04/18 12:00 97.1 85 20 118/64 (82) 94 09/04/18 12:00 90 09/04/18 09:20 86 19 98 Nasal Cannula 4.0 36 09/04/18 09:20 86 19 98 Nasal Cannula 4.0 36 09/04/18 09:18 86 18 98 Nasal Cannula 4.0 36 09/04/18 09:16 86 16 98 Nasal Cannula 4.0 36 09/04/18 09:00 Nasal Cannula 4.0 Nasal Cannula 4.0 09/04/18 08:50 89 155/81 09/04/18 08:00 96.8 89 20 155/81 (105) 96 09/04/18 08:00 81 09/04/18 07:41 84 20 97 Nasal Cannula 4.0 36 09/04/18 07:29 81 24 93 Nasal Cannula 4.0 36 09/04/18 04:00 82 09/04/18 04:00 97.0 84 20 137/64 (88) 95 09/04/18 01:05 85 18 96 Nasal Cannula 4.0 38 09/04/18 00:52 90 18 94 Nasal Cannula 4.0 38 09/04/18 00:00 97.8 86 20 138/71 (93) 95 09/04/18 00:00 86 09/03/18 21:11 93 20 Nasal Cannula 5.0 38 09/03/18 21:04 Nasal Cannula 5.0 38 09/03/18 21:03 Nasal Cannula 5.0 38 09/03/18 21:00 Nasal Cannula 4.0 Nasal Cannula 4.0 09/03/18 20:55 Nasal Cannula 5.0 40 09/03/18 20:30 94 20 95 Nasal Cannula 5.0 40 09/03/18 20:00 98.1 94 20 134/57 (82) 94 09/03/18 20:00 94 Height (Feet): 5 Height (Inches): 8.00 Weight (Pounds): 250 General Appearance: WD/WN, no acute distress HEENT: normocephalic, atraumatic, anicteric, mucous membranes moist, PERRL, EOMI, pharynx normal, supple, no JVD Respiratory/Chest: chest wall non-tender, no respiratory distress, no accessory muscle use, decreased breath sounds, crackles/rales Breasts: no masses Cardiovascular: normal peripheral pulses, normal rate, regular rhythm, no gallop/murmur, no JVD Abdomen: normal bowel sounds, soft, non tender, no organomegaly, non distended , no mass, no scars Extremities: no cyanosis, no clubbing Skin: no rash, no lesions, no ulcers Neurologic/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 Complete 09/02/18 12:10 Nasal Nares Influenza Types A,B Antigen (ALMAS) - Final Complete 09/03/18 05:00 External Cath Urine Culture - Preliminary Resulted 09/02/18 12:40 Urine,Clean Catch Urine Culture - Preliminary NO GROWTH AFTER 24 HOURS Resulted 09/02/18 12:40 Rectum VRE Culture - Final Enterococcus Faecium - Vre Complete 09/02/18 12:40 Rectum - Final NO CARBAPENEM-RESISTANT ENTEROBACTERI... Complete Laboratory Tests Test 09/04/18 06:40 White Blood Count 5.5 K/UL (4.8-10.8) Red Blood Count 3.67 M/UL (4.70-6.10) L Hemoglobin 10.4 G/DL (14.2-18.0) L Hematocrit 34.3 % (42.0-52.0) L Mean Corpuscular Volume 93 FL (80-99) Mean Corpuscular Hemoglobin 28.2 PG (27.0-31.0) Mean Corpuscular Hemoglobin Concent 30.2 G/DL (32.0-36.0) L Red Cell Distribution Width 21.4 % (11.6-14.8) H Platelet Count 93 K/UL (150-450) L Mean Platelet Volume 6.8 FL (6.5-10.1) Neutrophils (%) (Auto) % (45.0-75.0) Lymphocytes (%) (Auto) % (20.0-45.0) Monocytes (%) (Auto) % (1.0-10.0) Eosinophils (%) (Auto) % (0.0-3.0) Basophils (%) (Auto) % (0.0-2.0) Differential Total Cells Counted 100 Neutrophils % (Manual) 76 % (45-75) H Lymphocytes % (Manual) 14 % (20-45) L Monocytes % (Manual) 2 % (1-10) Eosinophils % (Manual) 0 % (0-3) Basophils % (Manual) 0 % (0-2) Band Neutrophils 8 % (0-8) Platelet Estimate Decreased L Platelet Morphology Normal Polychromasia 1+ Hypochromasia 1+ Anisocytosis 2+ Sodium Level 145 MMOL/L (136-145) Potassium Level 5.0 MMOL/L (3.5-5.1) Chloride Level 109 MMOL/L (98-107) H Carbon Dioxide Level 26 MMOL/L (21-32) Anion Gap 10 mmol/L (5-15) Blood Urea Nitrogen 26 mg/dL (7-18) H Creatinine 1.3 MG/DL (0.55-1.30) Estimat Glomerular Filtration Rate mL/min (>60) Glucose Level 105 MG/DL (74-106) Calcium Level 9.1 MG/DL (8.5-10.1) Pro-B-Type Natriuretic Peptide 399 pg/mL (0-125) H Current Medications Medications (Trade) Dose Ordered Sig/Gaby Route PRN Reason Start Time Stop Time Status Last Admin Dose Admin Acetaminophen (Tylenol) 650 mg Q6H PRN ORAL Mild Pain/Temp > 100.5 09/03/18 22:00 10/03/18 21:59 09/04/18 04:37 Allopurinol (Zyloprim) 100 mg DAILY ORAL 09/03/18 09:00 10/03/18 08:59 09/04/18 08:49 Amiodarone HCl (Cordarone) 100 mg DAILY ORAL 09/03/18 09:00 10/03/18 08:59 09/04/18 08:49 Aspirin (Ecotrin) 81 mg DAILY ORAL 09/03/18 09:00 10/03/18 08:59 09/04/18 08:49 Atorvastatin Calcium (Lipitor) 80 mg BEDTIME ORAL 09/02/18 21:00 10/02/18 20:59 09/03/18 20:28 Dicyclomine HCl (Bentyl) 10 mg QID ORAL 09/02/18 21:00 10/02/18 20:59 09/04/18 17:38 Donepezil HCl (Aricept) 10 mg DAILY ORAL 09/05/18 09:00 10/05/18 08:59 Finasteride (Proscar) 5 mg DAILY ORAL 09/03/18 09:00 10/03/18 08:59 09/04/18 08:48 Ipratropium Lapoint (Atrovent) 500 mcg Q6HRT HHN 09/03/18 15:00 09/08/18 14:59 09/04/18 13:17 Memantine (Namenda) 10 mg BID ORAL 09/04/18 18:00 10/04/18 17:59 09/04/18 17:38 Meropenem 1 gm/ Sodium Chloride 55 ml @ 110 mls/hr Q12HR IVPB 09/02/18 21:00 09/07/18 20:59 09/04/18 08:36 Metoprolol Succinate (Toprol XL) 50 mg DAILY ORAL 09/03/18 09:00 10/03/18 08:59 09/04/18 08:50 Pantoprazole (Protonix) 40 mg DAILY ORAL 09/03/18 09:00 10/03/18 08:59 09/04/18 08:49 Prednisone (predniSONE) 40 mg DAILY ORAL 09/03/18 09:00 10/03/18 08:59 09/04/18 08:49 Quetiapine Fumarate (SEROquel) 12.5 mg Q6H PRN ORAL agitation 09/04/18 16:12 10/04/18 16:11 Salmeterol Xinafoate/ Fluticasone (Advair 250/50 Diskus) 1 puffs BID INH 09/03/18 09:00 10/03/18 08:59 09/04/18 09:16 Tiotropium [place] (Spiriva Inhaler) 1 puff DAILY INH 09/03/18 09:00 10/03/18 08:59 09/04/18 09:18 Katelyn Nelson M.D. Sep 04, 2018 19:19
[2018-09-04 20:00] VITALS: BP 123/59
--- NOTE | 2018-09-04 20:29 | Pulmonology Progress Note ---
Assessment/Plan Problems: (1) COPD (chronic obstructive pulmonary disease) (2) History of lung cancer (3) Pneumonia (4) Altered level of consciousness (5) UTI (urinary tract infection) (6) Bladder cancer (7) Acute metabolic encephalopathy Assessment/Plan ASSESSMENT: The patient is an 87-year-old male with a history of non-small cell lung carcinoma status post radiation therapy in 2014, 2016 and 2017, chronic obstructive pulmonary disease, bladder cancer status post transurethral resection of prostate and BCG instillation July 2017, vascular dementia, coronary artery disease, sick sinus syndrome, and atrial fibrillation status post pacemaker, presenting from a nursing facility with altered mental status, likely encephalopathy. He does have changes suggestive of pneumonia on his chest x-ray, but these are chronic and lot of combination of postradiation changes and likely resolving infiltrates. He does not appear infected from a respiratory standpoint, though he does have urinary tract infection at this point for which he is being treated. He also likely has an exacerbation of his underlying chronic obstructive pulmonary disease. PROBLEM LIST: 1. COPD with acute exacerbation. 2. Non-small cell lung carcinoma status post XRT in 2014, 2016 and 2017. 3. Right upper lobe infiltrates, likely resolving pneumonia. 4. Postradiation changes, right lower lobe. 5. Scattered bilateral pulmonary opacities. 6. UTI. 7. Vascular dementia. 8. Altered mental status, likely encephalopathy on top of underlying dementia. 9. Sick sinus syndrome, status post pacemaker. 10. Bladder cancer, status post BCG and TURBT. 11. Dysphagia. TREATMENT PLAN: 1. Optimize pulmonary hygiene/mobilize as tolerated. 2. Titrate on FiO2 to keep saturations greater than 90%. 3. Continue Spiriva and Advair. 4. Okiab-bpi-iytdi and p.r.n. bronchodilators. 5. Prednisone 40 mg (today is day #3). 6. Antibiotics per ID. 7. Aspiration precautions. 8. DVT prophylaxis, heparin subcutaneous. 9. The patient is a Full Code. 10. Monitor volumes and renal function. Subjective Allergies: Coded Allergies: CEFTRIAXONE (Verified Allergy, Unknown, 09/02/18) LEVOFLOXACIN (Verified Allergy, Unknown, 09/02/18) VANCOMYCIN (Verified Allergy, Unknown, 09/02/18) Subjective AFVSS O2 needs stable Less interactive Less cough and SOB no wheezing no F/C COMMUNICATIONS STRATEGIST eval noted Objective Last 24 Hour Vital Signs Date Time Temp Pulse Resp B/P (MAP) Pulse Ox O2 Delivery O2 Flow Rate FiO2 09/04/18 19:57 86 20 98 Nasal Cannula 3.0 32 09/04/18 19:57 86 20 98 Nasal Cannula 3.0 32 09/04/18 19:57 98 Nasal Cannula 3.0 32 09/04/18 19:57 86 20 98 Nasal Cannula 3.0 32 09/04/18 19:57 Nasal Cannula 3.0 32 09/04/18 19:49 86 20 89 Room Air 21 09/04/18 16:00 75 09/04/18 16:00 97.3 89 20 124/53 (76) 94 09/04/18 13:30 90 20 98 Nasal Cannula 3.0 32 09/04/18 13:17 89 19 95 Nasal Cannula 4.0 36 09/04/18 12:00 97.1 85 20 118/64 (82) 94 09/04/18 12:00 90 09/04/18 09:20 86 19 98 Nasal Cannula 4.0 36 09/04/18 09:20 86 19 98 Nasal Cannula 4.0 36 09/04/18 09:18 86 18 98 Nasal Cannula 4.0 36 09/04/18 09:16 86 16 98 Nasal Cannula 4.0 36 09/04/18 09:00 Nasal Cannula 4.0 Nasal Cannula 4.0 09/04/18 08:50 89 155/81 09/04/18 08:00 96.8 89 20 155/81 (105) 96 09/04/18 08:00 81 09/04/18 07:41 84 20 97 Nasal Cannula 4.0 36 09/04/18 07:29 81 24 93 Nasal Cannula 4.0 36 09/04/18 04:00 82 09/04/18 04:00 97.0 84 20 137/64 (88) 95 09/04/18 01:05 85 18 96 Nasal Cannula 4.0 38 09/04/18 00:52 90 18 94 Nasal Cannula 4.0 38 09/04/18 00:00 97.8 86 20 138/71 (93) 95 09/04/18 00:00 86 09/03/18 21:11 93 20 Nasal Cannula 5.0 38 09/03/18 21:04 Nasal Cannula 5.0 38 09/03/18 21:03 Nasal Cannula 5.0 38 09/03/18 21:00 Nasal Cannula 4.0 Nasal Cannula 4.0 09/03/18 20:55 Nasal Cannula 5.0 40 09/03/18 20:30 94 20 95 Nasal Cannula 5.0 40 Intake and Output 09/03/18 09/04/18 19:00 07:00 Intake Total 295 ml Balance 295 ml Intake Oral 240 ml IV Total 55 ml # Voids 3 4 # Bowel Movements 1 3 General Appearance: no acute distress, cachetic HEENT: normocephalic, atraumatic, anicteric, mucous membranes moist Respiratory/Chest: rhonchi Cardiovascular: normal peripheral pulses, normal rate, regular rhythm Abdomen: normal bowel sounds, soft, non tender, no organomegaly, non distended , no mass Extremities: no cyanosis, no clubbing, no edema Microbiology Date/Time Source Procedure Growth Status 09/02/18 12:50 Blood Blood Culture - Preliminary NO GROWTH AFTER 24 HOURS Resulted 09/02/18 12:30 Blood Blood Culture - Preliminary NO GROWTH AFTER 24 HOURS Resulted 09/02/18 12:40 Nasal Nares MRSA Culture - Final NO METHICILLIN RESISTANT STAPH AUREUS... Complete 09/02/18 12:10 Nasal Nares Influenza Types A,B Antigen ([facility]) - Final Complete 09/03/18 05:00 External Cath Urine Culture - Preliminary Resulted 09/02/18 12:40 Urine,Clean Catch Urine Culture - Preliminary NO GROWTH AFTER 24 HOURS Resulted 09/02/18 12:40 Rectum VRE Culture - Final Enterococcus Faecium - Vre Complete 09/02/18 12:40 Rectum - Final NO CARBAPENEM-RESISTANT ENTEROBACTERI... Complete Laboratory Tests 09/04/18 06:40: White Blood Count 5.5, Red Blood Count 3.67L, Hemoglobin 10.4L, Hematocrit 34.3L , Mean Corpuscular Volume 93, Mean Corpuscular Hemoglobin 28.2, Mean Corpuscular Hemoglobin Concent 30.2L, Red Cell Distribution Width 21.4H, Platelet Count 93L, Mean Platelet Volume 6.8, Neutrophils (%) (Auto) , Lymphocytes (%) (Auto) , Monocytes (%) (Auto) , Eosinophils (%) (Auto) , Basophils (%) (Auto) , Differential Total Cells Counted 100, Neutrophils % ( Manual) 76H, Lymphocytes % (Manual) 14L, Monocytes % (Manual) 2, Eosinophils % ( Manual) 0, Basophils % (Manual) 0, Band Neutrophils 8, Platelet Estimate DecreasedL, Platelet Morphology Normal, Polychromasia 1+, Hypochromasia 1+, Anisocytosis 2+, Sodium Level 145, Potassium Level 5.0, Chloride Level 109H, Carbon Dioxide Level 26, Anion Gap 10, Blood Urea Nitrogen 26H, Creatinine 1.3, Estimat Glomerular Filtration Rate , Glucose Level 105, Calcium Level 9.1, Pro-B -Type Natriuretic Peptide 399H Current Medications Medications (Trade) Dose Ordered Sig/Gaby Route PRN Reason Start Time Stop Time Status Last Admin Dose Admin Acetaminophen (Tylenol) 650 mg Q6H PRN ORAL Mild Pain/Temp > 100.5 09/03/18 22:00 10/03/18 21:59 09/04/18 04:37 Allopurinol (Zyloprim) 100 mg DAILY ORAL 09/03/18 09:00 10/03/18 08:59 09/04/18 08:49 Amiodarone HCl (Cordarone) 100 mg DAILY ORAL 09/03/18 09:00 10/03/18 08:59 09/04/18 08:49 Aspirin (Ecotrin) 81 mg DAILY ORAL 09/03/18 09:00 10/03/18 08:59 09/04/18 08:49 Atorvastatin Calcium (Lipitor) 80 mg BEDTIME ORAL 09/02/18 21:00 10/02/18 20:59 09/03/18 20:28 Dicyclomine HCl (Bentyl) 10 mg QID ORAL 09/02/18 21:00 10/02/18 20:59 09/04/18 17:38 Donepezil HCl (Aricept) 10 mg DAILY ORAL 09/05/18 09:00 10/05/18 08:59 Finasteride (Proscar) 5 mg DAILY ORAL 09/03/18 09:00 10/03/18 08:59 09/04/18 08:48 Ipratropium [place] (Atrovent) 500 mcg Q6HRT HHN 09/03/18 15:00 09/08/18 14:59 09/04/18 19:49 Memantine (Namenda) 10 mg BID ORAL 09/04/18 18:00 10/04/18 17:59 09/04/18 17:38 Meropenem 1 gm/ Sodium Chloride 55 ml @ 110 mls/hr Q12HR IVPB 09/02/18 21:00 09/07/18 20:59 09/04/18 08:36 Metoprolol Succinate (Toprol XL) 50 mg DAILY ORAL 09/03/18 09:00 10/03/18 08:59 09/04/18 08:50 Pantoprazole (Protonix) 40 mg DAILY ORAL 09/03/18 09:00 10/03/18 08:59 09/04/18 08:49 Prednisone (predniSONE) 40 mg DAILY ORAL 09/03/18 09:00 10/03/18 08:59 09/04/18 08:49 Quetiapine Fumarate (SEROquel) 12.5 mg Q6H PRN ORAL agitation 09/04/18 16:12 10/04/18 16:11 Salmeterol Xinafoate/ Fluticasone (Advair 250/50 Diskus) 1 puffs BID INH 09/03/18 09:00 10/03/18 08:59 09/04/18 19:49 Tiotropium [place] (Spiriva Inhaler) 1 puff DAILY INH 09/03/18 09:00 10/03/18 08:59 09/04/18 09:18 Elias Quinones MD Sep 04, 2018 20:29
[2018-09-04] MEDS: Atorvastatin 80mg tab ORAL SCH (20:57)
--- NOTE | 2018-09-04 21:06 | NUR ---
CASE MANAGEMENT: REVIEW 87/M BIBA FROM REHAB OF CC: ALOC SI: COPD T 99.5 HR 112 RR 21 BP 132/51 SAT 80% ROOM AIR TROPONIN I 0.013 IS: NS IVF BOLUS X1 SOLU MEDROL IV X1 ATROVENT HHN X1 ALBUTEROL HHN X1 ERTAPENEM IV X1 PATIENT ADMITTED TO TELEMETRY UNIT 09/02/2018 DCP: PATIENT IS FROM [facility] OF
[2018-09-05] VITALS: BP 129/53
--- NOTE | 2018-09-05 00:54 | NUR ---
NURSE NOTES: Pt got out of bed by himself. Staff assisted him to use bathroom as he wanted. Pt was helped by 3 staffs to get back to the bed and pt had SOB. 3L NC with humidifier was applied. Currently,pt is sleeping w/o respiratory distress. SR 83 bpm in the monitor. Bed alarm is on and staff is watching pt near the room. Will continue to monitor.
[2018-09-05] MEDS: Ipratropium 0.02% Inh Soln 2.5ml UD HHN SCH ×4 (01:25→20:23)
[2018-09-05 04:00] VITALS: BP 131/59
--- NOTE | 2018-09-05 07:12 | NUR ---
HAND-OFF: Report given to Simeon Galindo RN. Pt is resting in the bed w/o distress. Endorsed plans of care.
--- NOTE | 2018-09-05 07:13 | NUR ---
NURSE NOTES: Received report from RIGOBERTO Cruz. Patient awake, seems confused but verbally responsive. No signs and symptoms of acute distress noted at this time. Bed at lowest position with three side rails up. Call light and bed side table within reach. Bed alarm on. Will continue to monitor and follow plan of care.
[2018-09-05 07:19] LABS: EOSINOPHILS % (AUTO) 0.4 % (0.0-3.0); HEMATOCRIT 36.5 % (42.0-52.0); HEMOGLOBIN 11.3 G/DL (14.2-18.0); LYMPHOCYTES % (AUTO) 19.3 % (20.0-45.0); MEAN CORPUSCULAR VOLUME 92 FL (80-99); MONOCYTES % (AUTO) 6.6 % (1.0-10.0); NEUTROPHILS % (AUTO) 72.7 % (45.0-75.0); PLATELET COUNT 100 K/UL (150-450); RED BLOOD COUNT 3.97 M/UL (4.70-6.10); RED CELL DISTRIBUTION WIDTH 20.7 % (11.6-14.8); WHITE BLOOD COUNT 4.3 K/UL (4.8-10.8)
[2018-09-05 07:59] LABS: ANION GAP 8 mmol/L (5-15); BLOOD UREA NITROGEN 20 mg/dL (7-18); CALCIUM 9.2 MG/DL (8.5-10.1); CARBON DIOXIDE 28 MMOL/L (21-32); CHLORIDE 110 MMOL/L (98-107); CREATININE 1.2 MG/DL (0.55-1.30); POTASSIUM 4.2 MMOL/L (3.5-5.1); SODIUM 146 MMOL/L (136-145)
[2018-09-05 08:00] VITALS: BP 157/86
[2018-09-05] MEDS: Aspirin EC 81mg tab ORAL SCH (08:46)
[2018-09-05] MEDS: Donepezil 10mg tab ORAL SCH (08:46)
[2018-09-05] MEDS: Amiodarone 200mg tab ORAL SCH (08:46)
[2018-09-05] MEDS: Dicyclomine 10mg Cap ORAL SCH ×4 (08:47→20:15)
[2018-09-05] MEDS: Memantine 10mg tab ORAL SCH ×2 (08:47→17:08)
[2018-09-05] MEDS: Metoprolol Succinate XL 50mg tab ORAL SCH (08:47)
[2018-09-05] MEDS: Allopurinol 100mg Tab ORAL SCH (08:47)
[2018-09-05] MEDS: Meropenem 1 GM in NS 55 ML IVPB SCH (08:47)
[2018-09-05] MEDS: Advair 250/50 Inhaler - 14 dose INH SCH ×2 (09:07→20:20)
--- NOTE | 2018-09-05 11:17 | General Progress Note ---
Assessment/Plan Problem List: (1) Acute metabolic encephalopathy ICD Codes: G93.41 - Metabolic encephalopathy SNOMED: [id number], [id number] Status: unchanged Assessment/Plan Seroquel 12.5mg po tid prn dw nurse, son Subjective Neurologic/Psychiatric: Reports: anxiety Allergies: Coded Allergies: CEFTRIAXONE (Verified Allergy, Unknown, 09/02/18) LEVOFLOXACIN (Verified Allergy, Unknown, 09/02/18) VANCOMYCIN (Verified Allergy, Unknown, 09/02/18) Subjective the pt was agitated last night. He came out of bed last night standing in room and was hallucinating. the pts private nurse stated that the pt was responding to internal stimuli. the pt was having visual hallucinations the pt was confused, didnt know his name. Objective Last 24 Hour Vital Signs Date Time Temp Pulse Resp B/P (MAP) Pulse Ox O2 Delivery O2 Flow Rate FiO2 09/05/18 09:17 83 20 97 Nasal Cannula 3.0 32 09/05/18 09:16 83 20 97 Nasal Cannula 3.0 32 09/05/18 09:16 83 20 97 Nasal Cannula 3.0 32 09/05/18 09:10 84 20 98 Nasal Cannula 3.0 32 09/05/18 08:47 87 157/86 09/05/18 08:00 97.6 87 18 157/86 (109) 95 09/05/18 07:32 84 20 97 Nasal Cannula 3.0 32 09/05/18 07:26 83 18 97 Nasal Cannula 3.0 32 09/05/18 07:25 Nasal Cannula 3.0 32 09/05/18 07:25 99 Nasal Cannula 3.0 32 09/05/18 04:00 97.4 81 18 131/59 (83) 94 09/05/18 03:28 73 09/05/18 01:35 84 20 97 Nasal Cannula 3.0 32 09/05/18 01:25 81 20 95 Nasal Cannula 3.0 32 09/05/18 00:00 98.1 83 18 129/53 (78) 93 09/04/18 23:25 82 09/04/18 21:00 Nasal Cannula 3.0 Nasal Cannula 3.0 09/04/18 20:00 98.1 83 18 123/59 (80) 93 09/04/18 19:57 86 20 98 Nasal Cannula 3.0 32 09/04/18 19:57 86 20 98 Nasal Cannula 3.0 32 09/04/18 19:57 98 Nasal Cannula 3.0 32 09/04/18 19:57 86 20 98 Nasal Cannula 3.0 32 09/04/18 19:57 Nasal Cannula 3.0 32 09/04/18 19:49 86 20 89 Room Air 21 09/04/18 19:00 81 09/04/18 16:00 75 09/04/18 16:00 97.3 89 20 124/53 (76) 94 09/04/18 13:30 90 20 98 Nasal Cannula 3.0 32 09/04/18 13:17 89 19 95 Nasal Cannula 4.0 36 09/04/18 12:00 97.1 85 20 118/64 (82) 94 09/04/18 12:00 90 Intake and Output 09/04/18 09/05/18 19:00 07:00 Intake Total 630 ml 55 ml Balance 630 ml 55 ml Intake Oral 630 ml IV Total 55 ml # Voids 5 3 # Bowel Movements 4 3 Laboratory Tests 09/05/18 07:10: White Blood Count 4.3L, Red Blood Count 3.97L, Hemoglobin 11.3L, Hematocrit 36.5L, Mean Corpuscular Volume 92, Mean Corpuscular Hemoglobin 28.4, Mean Corpuscular Hemoglobin Concent 30.9L, Red Cell Distribution Width 20.7H, Platelet Count 100L, Mean Platelet Volume 6.4L, Neutrophils (%) (Auto) 72.7, Lymphocytes (%) (Auto) 19.3L, Monocytes (%) (Auto) 6.6, Eosinophils (%) (Auto) 0.4, Basophils (%) (Auto) 1.0, Sodium Level 146H, Potassium Level 4.2, Chloride Level 110H, Carbon Dioxide Level 28, Anion Gap 8, Blood Urea Nitrogen 20H, Creatinine 1.2, Estimat Glomerular Filtration Rate , Glucose Level 81, Calcium Level 9.2 Height (Feet): 5 Height (Inches): 8.00 Weight (Pounds): 250 General Appearance: no apparent distress, lethargic, confused, agitated - he was lethargic but having psychomotor agitation Neurologic: disoriented, depressed affect Ramos Rios MD Sep 05, 2018 11:17
[2018-09-05 12:00] VITALS: BP 136/80
--- NOTE | 2018-09-05 15:48 | General Progress Note ---
Assessment/Plan Status: stable Assessment/Plan 1. UTI - D/C Meropenem and observe until tomorrow. Urine Cx was consistent with contamination. follow up urine cx. D/C planning tomorrow to [facility]. 2. Pneumonia probably resolving pneumonia - improved. recently discharged from [facility]. 3, HTN- controlled 4. A fib - on Amioderone 100 mg one po daily. pattern marker is following the patient. 5. Bladder CA 6. Non-Small Cell Lung CA s/p XRT in 2014, 2016 and 2018. 7. COPD with acute exacerbation - improved. cont current therapy. will finish steroid tomorrow. 8. BPH, status post TURP and BCG. 9. CAD 10. GERD 11. Vascular dementia 12. Sick sinus syndrome, status post pacemaker 13. Encephalopathy probably due to UTI - improved. 14. Thrombocytopenia probably heparin induced - improved. cont SCD. Subjective Date patient seen: Sep 05, 2018 Time patient seen: 15:00 Constitutional: Reports: weakness HEENT: Reports: no symptoms Cardiovascular: Reports: no symptoms Respiratory: Reports: no symptoms Gastrointestinal/Abdominal: Reports: no symptoms Genitourinary: Reports: no symptoms Neurologic/Psychiatric: Reports: no symptoms Endocrine: Reports: no symptoms Hematologic/Lymphatic: Reports: no symptoms Allergies: Coded Allergies: CEFTRIAXONE (Verified Allergy, Unknown, 09/02/18) LEVOFLOXACIN (Verified Allergy, Unknown, 09/02/18) VANCOMYCIN (Verified Allergy, Unknown, 09/02/18) Subjective Today, he is slightly confused but he is awake and responds to command. no sob or chest pain. no fever or chills. Objective Last 24 Hour Vital Signs Date Time Temp Pulse Resp B/P (MAP) Pulse Ox O2 Delivery O2 Flow Rate FiO2 09/05/18 13:37 85 20 98 Nasal Cannula 3.0 32 09/05/18 13:27 71 18 95 Room Air 21 09/05/18 12:00 84 09/05/18 12:00 98.1 89 19 136/80 (98) 97 09/05/18 09:17 83 20 97 Nasal Cannula 3.0 32 09/05/18 09:16 83 20 97 Nasal Cannula 3.0 32 09/05/18 09:16 83 20 97 Nasal Cannula 3.0 32 09/05/18 09:10 84 20 98 Nasal Cannula 3.0 32 09/05/18 09:00 Nasal Cannula 3.0 Nasal Cannula 3.0 09/05/18 08:47 87 157/86 09/05/18 08:00 97.6 87 18 157/86 (109) 95 09/05/18 08:00 82 09/05/18 07:32 84 20 97 Nasal Cannula 3.0 32 09/05/18 07:26 83 18 97 Nasal Cannula 3.0 32 09/05/18 07:25 Nasal Cannula 3.0 32 09/05/18 07:25 99 Nasal Cannula 3.0 32 09/05/18 04:00 97.4 81 18 131/59 (83) 94 09/05/18 03:28 73 09/05/18 01:35 84 20 97 Nasal Cannula 3.0 32 09/05/18 01:25 81 20 95 Nasal Cannula 3.0 32 09/05/18 00:00 98.1 83 18 129/53 (78) 93 09/04/18 23:25 82 09/04/18 21:00 Nasal Cannula 3.0 Nasal Cannula 3.0 09/04/18 20:00 98.1 83 18 123/59 (80) 93 09/04/18 19:57 86 20 98 Nasal Cannula 3.0 32 09/04/18 19:57 86 20 98 Nasal Cannula 3.0 32 09/04/18 19:57 98 Nasal Cannula 3.0 32 09/04/18 19:57 86 20 98 Nasal Cannula 3.0 32 09/04/18 19:57 Nasal Cannula 3.0 32 09/04/18 19:49 86 20 89 Room Air 21 09/04/18 19:00 81 09/04/18 16:00 75 09/04/18 16:00 97.3 89 20 124/53 (76) 94 Intake and Output 09/04/18 09/05/18 19:00 07:00 Intake Total 630 ml 55 ml Balance 630 ml 55 ml Intake Oral 630 ml IV Total 55 ml # Voids 5 3 # Bowel Movements 4 3 Laboratory Tests 09/05/18 07:10: White Blood Count 4.3L, Red Blood Count 3.97L, Hemoglobin 11.3L, Hematocrit 36.5L, Mean Corpuscular Volume 92, Mean Corpuscular Hemoglobin 28.4, Mean Corpuscular Hemoglobin Concent 30.9L, Red Cell Distribution Width 20.7H, Platelet Count 100L, Mean Platelet Volume 6.4L, Neutrophils (%) (Auto) 72.7, Lymphocytes (%) (Auto) 19.3L, Monocytes (%) (Auto) 6.6, Eosinophils (%) (Auto) 0.4, Basophils (%) (Auto) 1.0, Sodium Level 146H, Potassium Level 4.2, Chloride Level 110H, Carbon Dioxide Level 28, Anion Gap 8, Blood Urea Nitrogen 20H, Creatinine 1.2, Estimat Glomerular Filtration Rate , Glucose Level 81, Calcium Level 9.2 Height (Feet): 5 Height (Inches): 8.00 Weight (Pounds): 250 General Appearance: no apparent distress, confused Neck: non-tender, supple Cardiovascular: normal peripheral pulses, normal rate, regular rhythm Respiratory/Chest: chest wall non-tender, lungs clear, normal breath sounds, no respiratory distress Abdomen: normal bowel sounds, non tender, soft Extremities: normal range of motion, non-tender Edema: no edema noted Arm (L), no edema noted Arm (R), no edema noted Leg (L), no edema noted Leg (R), no edema noted Pedal (L), no edema noted Pedal (R), no edema noted Generalized Neurologic: responsive Skin: warm/dry Lymphatic: normal anterior cervical (L), normal anterior cervical (R), normal posterior cervical (L), normal posterior cervical (R), normal submandibular (L) , normal submandibular (R), normal supraclavicular (L), normal supraclavicular ( R), normal axillary (L), normal axillary (R), normal inguinal (L), normal inguinal (R), normal other Dyana Lennon MD Sep 05, 2018 15:48
--- NOTE | 2018-09-05 15:52 | Infectious Diseases Prog Note ---
Assessment/Plan Problems: (1) UTI (urinary tract infection) Assessment & Plan: culture grew small colony of gram positive cocci , most likely contaminant , will stop meropenem empirically , renal US ruled out obstruction (2) Altered level of consciousness Assessment & Plan: improving , had CT brain since can't have MRI due to pacemaker, didn't show any acute pathology , continue neuro check , avoid sedatives (3) Pneumonia Assessment & Plan: possible aspiration , due to altered metal status , not coughing or producing any phlegm , will stop meropenem and monitor clinically , continue aspiration precaution. had swallow eval and started on special diet (4) COPD (chronic obstructive pulmonary disease) Assessment & Plan: continue inhalers and taper steroids , titrate oxygen as needed (5) Bladder cancer Assessment & Plan: S/P prostatectomy and BCG treatment , follow up with oncology (6) History of lung cancer Assessment & Plan: S/P radiation therapy Subjective Constitutional: Reports: no symptoms HEENT: Reports: no symptoms Respiratory: Reports: no symptoms Breasts: Reports: no symptoms Cardiovascular: Reports: no symptoms Gastrointestinal/Abdominal: Reports: no symptoms Genitourinary: Reports: no symptoms Neurologic: Reports: no symptoms Psychiatric: Reports: no symptoms Skin: Reports: no symptoms Endocrine: Reports: no symptoms Hematologic: Reports: no symptoms Musculoskeletal: Reports: no symptoms Allergies: Coded Allergies: CEFTRIAXONE (Verified Allergy, Unknown, 09/02/18) LEVOFLOXACIN (Verified Allergy, Unknown, 09/02/18) VANCOMYCIN (Verified Allergy, Unknown, 09/02/18) Objective Vital Signs Last 24 Hour Vital Signs Date Time Temp Pulse Resp B/P (MAP) Pulse Ox O2 Delivery O2 Flow Rate FiO2 09/05/18 13:37 85 20 98 Nasal Cannula 3.0 32 09/05/18 13:27 71 18 95 Room Air 21 09/05/18 12:00 84 09/05/18 12:00 98.1 89 19 136/80 (98) 97 09/05/18 09:17 83 20 97 Nasal Cannula 3.0 32 09/05/18 09:16 83 20 97 Nasal Cannula 3.0 32 09/05/18 09:16 83 20 97 Nasal Cannula 3.0 32 09/05/18 09:10 84 20 98 Nasal Cannula 3.0 32 09/05/18 09:00 Nasal Cannula 3.0 Nasal Cannula 3.0 09/05/18 08:47 87 157/86 09/05/18 08:00 97.6 87 18 157/86 (109) 95 09/05/18 08:00 82 09/05/18 07:32 84 20 97 Nasal Cannula 3.0 32 09/05/18 07:26 83 18 97 Nasal Cannula 3.0 32 09/05/18 07:25 Nasal Cannula 3.0 32 09/05/18 07:25 99 Nasal Cannula 3.0 32 09/05/18 04:00 97.4 81 18 131/59 (83) 94 09/05/18 03:28 73 09/05/18 01:35 84 20 97 Nasal Cannula 3.0 32 09/05/18 01:25 81 20 95 Nasal Cannula 3.0 32 09/05/18 00:00 98.1 83 18 129/53 (78) 93 09/04/18 23:25 82 09/04/18 21:00 Nasal Cannula 3.0 Nasal Cannula 3.0 09/04/18 20:00 98.1 83 18 123/59 (80) 93 09/04/18 19:57 86 20 98 Nasal Cannula 3.0 32 09/04/18 19:57 86 20 98 Nasal Cannula 3.0 32 09/04/18 19:57 98 Nasal Cannula 3.0 32 09/04/18 19:57 86 20 98 Nasal Cannula 3.0 32 09/04/18 19:57 Nasal Cannula 3.0 32 09/04/18 19:49 86 20 89 Room Air 21 09/04/18 19:00 81 09/04/18 16:00 75 09/04/18 16:00 97.3 89 20 124/53 (76) 94 Height (Feet): 5 Height (Inches): 8.00 Weight (Pounds): 250 General Appearance: WD/WN, no acute distress HEENT: normocephalic, atraumatic, anicteric, mucous membranes moist Respiratory/Chest: chest wall non-tender, normal breath sounds, no respiratory distress, no accessory muscle use, decreased breath sounds Cardiovascular: normal peripheral pulses, normal rate, regular rhythm, no gallop/murmur, no JVD Abdomen: normal bowel sounds, soft, non tender, no organomegaly, non distended , no mass, no scars Extremities: no cyanosis, no clubbing Skin: no rash, no lesions, no ulcers Neurologic/Psychiatric: alert, responsive, other - confused Lymphatic: no neck adenopathy, no groin adenopathy Musculoskeletal: normal muscle bulk, no effusion Microbiology Date/Time Source Procedure Growth Status 09/03/18 05:00 External Cath Urine Culture - Preliminary Gram Positive Cocci Resulted Laboratory Tests Test 09/05/18 07:10 White Blood Count 4.3 K/UL (4.8-10.8) L Red Blood Count 3.97 M/UL (4.70-6.10) L Hemoglobin 11.3 G/DL (14.2-18.0) L Hematocrit 36.5 % (42.0-52.0) L Mean Corpuscular Volume 92 FL (80-99) Mean Corpuscular Hemoglobin 28.4 PG (27.0-31.0) Mean Corpuscular Hemoglobin Concent 30.9 G/DL (32.0-36.0) L Red Cell Distribution Width 20.7 % (11.6-14.8) H Platelet Count 100 K/UL (150-450) L Mean Platelet Volume 6.4 FL (6.5-10.1) L Neutrophils (%) (Auto) 72.7 % (45.0-75.0) Lymphocytes (%) (Auto) 19.3 % (20.0-45.0) L Monocytes (%) (Auto) 6.6 % (1.0-10.0) Eosinophils (%) (Auto) 0.4 % (0.0-3.0) Basophils (%) (Auto) 1.0 % (0.0-2.0) Sodium Level 146 MMOL/L (136-145) H Potassium Level 4.2 MMOL/L (3.5-5.1) Chloride Level 110 MMOL/L (98-107) H Carbon Dioxide Level 28 MMOL/L (21-32) Anion Gap 8 mmol/L (5-15) Blood Urea Nitrogen 20 mg/dL (7-18) H Creatinine 1.2 MG/DL (0.55-1.30) Estimat Glomerular Filtration Rate mL/min (>60) Glucose Level 81 MG/DL (74-106) Calcium Level 9.2 MG/DL (8.5-10.1) Current Medications Medications (Trade) Dose Ordered Sig/Gaby Route PRN Reason Start Time Stop Time Status Last Admin Dose Admin Acetaminophen (Tylenol) 650 mg Q6H PRN ORAL Mild Pain/Temp > 100.5 09/03/18 22:00 10/03/18 21:59 09/04/18 21:38 Allopurinol (Zyloprim) 100 mg DAILY ORAL 09/03/18 09:00 10/03/18 08:59 09/05/18 08:47 Amiodarone HCl (Cordarone) 100 mg DAILY ORAL 09/03/18 09:00 10/03/18 08:59 09/05/18 08:46 Aspirin (Ecotrin) 81 mg DAILY ORAL 09/03/18 09:00 10/03/18 08:59 09/05/18 08:46 Atorvastatin [place] (Lipitor) 80 mg BEDTIME ORAL 09/02/18 21:00 10/02/18 20:59 09/04/18 20:57 Dicyclomine HCl (Bentyl) 10 mg QID ORAL 09/02/18 21:00 10/02/18 20:59 09/05/18 13:46 Donepezil HCl (Aricept) 10 mg DAILY ORAL 09/05/18 09:00 10/05/18 08:59 09/05/18 08:46 Finasteride (Proscar) 5 mg DAILY ORAL 09/03/18 09:00 10/03/18 08:59 09/05/18 08:46 Ipratropium [place] (Atrovent) 500 mcg Q6HRT HHN 09/03/18 15:00 09/08/18 14:59 09/05/18 13:27 Memantine (Namenda) 10 mg BID ORAL 09/04/18 18:00 10/04/18 17:59 09/05/18 08:47 Meropenem 1 gm/ Sodium Chloride 55 ml @ 110 mls/hr Q12HR IVPB 09/02/18 21:00 09/07/18 20:59 09/05/18 08:47 Metoprolol Succinate (Toprol XL) 50 mg DAILY ORAL 09/03/18 09:00 10/03/18 08:59 09/05/18 08:47 Pantoprazole (Protonix) 40 mg DAILY ORAL 09/03/18 09:00 10/03/18 08:59 09/05/18 08:46 Prednisone (predniSONE) 40 mg DAILY ORAL 09/03/18 09:00 10/03/18 08:59 09/05/18 08:46 Quetiapine Fumarate (SEROquel) 12.5 mg Q6H PRN ORAL agitation 09/04/18 16:12 10/04/18 16:11 09/05/18 10:57 Salmeterol Xinafoate/ Fluticasone (Advair 250/50 Diskus) 1 puffs BID INH 09/03/18 09:00 10/03/18 08:59 09/05/18 09:07 Tiotropium [place] (Spiriva Inhaler) 1 puff DAILY INH 09/03/18 09:00 10/03/18 08:59 09/05/18 09:07 Katelyn Nelson M.D. Sep 05, 2018 15:52
[2018-09-05 16:00] VITALS: BP 117/62
--- NOTE | 2018-09-05 17:25 | Cardiac Electrophysiology PN ---
Assessment/Plan Assessment/Plan 1. Paroxysmal atrial fibrillation. The patient is in SR on amiodarone 100 mg daily and aspirin 81 mg daily and Toprol-XL 50 mg daily. 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 2. Status post pacemaker. We will try to find the brand of the pacemaker and interrogate the pacemaker for further evaluation. 3. Hypertension. Continue Toprol-XL 50 mg daily. 4. COPD. On Solu-Medrol, antibiotic as well as Advair and Spiriva. 5. Urinary tract infection, on meropenem empirically. 6. Bladder cancer. 7. History of lung cancer, status post radiation therapy. DW RN and family DC plan tomorrow [facility] Subjective Subjective Comfortable in sinus tach with no events. Pleasantly confused being fed by grand daughter Objective Last 24 Hour Vital Signs Date Time Temp Pulse Resp B/P (MAP) Pulse Ox O2 Delivery O2 Flow Rate FiO2 09/05/18 16:00 98.2 88 18 117/62 (80) 99 09/05/18 13:37 85 20 98 Nasal Cannula 3.0 32 09/05/18 13:27 71 18 95 Room Air 21 09/05/18 12:00 84 09/05/18 12:00 98.1 89 19 136/80 (98) 97 09/05/18 09:17 83 20 97 Nasal Cannula 3.0 32 09/05/18 09:16 83 20 97 Nasal Cannula 3.0 32 09/05/18 09:16 83 20 97 Nasal Cannula 3.0 32 09/05/18 09:10 84 20 98 Nasal Cannula 3.0 32 09/05/18 09:00 Nasal Cannula 3.0 Nasal Cannula 3.0 09/05/18 08:47 87 157/86 09/05/18 08:00 97.6 87 18 157/86 (109) 95 09/05/18 08:00 82 09/05/18 07:32 84 20 97 Nasal Cannula 3.0 32 09/05/18 07:26 83 18 97 Nasal Cannula 3.0 32 09/05/18 07:25 Nasal Cannula 3.0 32 09/05/18 07:25 99 Nasal Cannula 3.0 32 09/05/18 04:00 97.4 81 18 131/59 (83) 94 09/05/18 03:28 73 09/05/18 01:35 84 20 97 Nasal Cannula 3.0 32 09/05/18 01:25 81 20 95 Nasal Cannula 3.0 32 09/05/18 00:00 98.1 83 18 129/53 (78) 93 09/04/18 23:25 82 09/04/18 21:00 Nasal Cannula 3.0 Nasal Cannula 3.0 09/04/18 20:00 98.1 83 18 123/59 (80) 93 09/04/18 19:57 86 20 98 Nasal Cannula 3.0 32 09/04/18 19:57 86 20 98 Nasal Cannula 3.0 32 09/04/18 19:57 98 Nasal Cannula 3.0 32 09/04/18 19:57 86 20 98 Nasal Cannula 3.0 32 09/04/18 19:57 Nasal Cannula 3.0 32 09/04/18 19:49 86 20 89 Room Air 21 09/04/18 19:00 81 Intake and Output 09/04/18 09/05/18 19:00 07:00 Intake Total 630 ml 55 ml Balance 630 ml 55 ml Intake Oral 630 ml IV Total 55 ml # Voids 5 3 # Bowel Movements 4 3 Laboratory Tests Test 09/05/18 07:10 White Blood Count 4.3 K/UL (4.8-10.8) L Red Blood Count 3.97 M/UL (4.70-6.10) L Hemoglobin 11.3 G/DL (14.2-18.0) L Hematocrit 36.5 % (42.0-52.0) L Mean Corpuscular Volume 92 FL (80-99) Mean Corpuscular Hemoglobin 28.4 PG (27.0-31.0) Mean Corpuscular Hemoglobin Concent 30.9 G/DL (32.0-36.0) L Red Cell Distribution Width 20.7 % (11.6-14.8) H Platelet Count 100 K/UL (150-450) L Mean Platelet Volume 6.4 FL (6.5-10.1) L Neutrophils (%) (Auto) 72.7 % (45.0-75.0) Lymphocytes (%) (Auto) 19.3 % (20.0-45.0) L Monocytes (%) (Auto) 6.6 % (1.0-10.0) Eosinophils (%) (Auto) 0.4 % (0.0-3.0) Basophils (%) (Auto) 1.0 % (0.0-2.0) Sodium Level 146 MMOL/L (136-145) H Potassium Level 4.2 MMOL/L (3.5-5.1) Chloride Level 110 MMOL/L (98-107) H Carbon Dioxide Level 28 MMOL/L (21-32) Anion Gap 8 mmol/L (5-15) Blood Urea Nitrogen 20 mg/dL (7-18) H Creatinine 1.2 MG/DL (0.55-1.30) Estimat Glomerular Filtration Rate mL/min (>60) Glucose Level 81 MG/DL (74-106) Calcium Level 9.2 MG/DL (8.5-10.1) Microbiology Date/Time Source Procedure Growth Status 09/03/18 05:00 External Cath Urine Culture - Preliminary Gram Positive Cocci Resulted Objective HEAD AND NECK: Shows no JVD. LUNGS: Coarse rhonchi. CARDIOVASCULAR: Regular S1 and S2 with no gallop or murmur. The pacemaker is in left subclavian. ABDOMEN: Soft. EXTREMITIES: 1+ pitting edema. Reji Willams MD Sep 05, 2018 17:25
--- NOTE | 2018-09-05 19:35 | NUR ---
HAND-OFF: Report given to Alejandra. FRANKLIN.
--- NOTE | 2018-09-05 19:50 | NUR ---
NURSE NOTES: Patient in bed awake, verbally responsive, no s/s distress noted. Family member at the bedside. Bed linen changed, kept clean and dry. Safety precaution maintained. Bed alarm on, in lowest position for safety. Call light within reach.
[2018-09-05 20:00] VITALS: BP 119/60
[2018-09-05] MEDS: Atorvastatin 80mg tab ORAL SCH (20:15)
--- NOTE | 2018-09-05 22:23 | Pulmonology Progress Note ---
Assessment/Plan Problems: (1) COPD (chronic obstructive pulmonary disease) (2) History of lung cancer (3) Pneumonia (4) Altered level of consciousness (5) UTI (urinary tract infection) (6) Bladder cancer (7) Acute metabolic encephalopathy Assessment/Plan ASSESSMENT: The patient is an 87-year-old male with a history of non-small cell lung carcinoma status post radiation therapy in 2014, 2016 and 2017, chronic obstructive pulmonary disease, bladder cancer status post transurethral resection of prostate and BCG instillation July 2017, vascular dementia, coronary artery disease, sick sinus syndrome, and atrial fibrillation status post pacemaker, presenting from a nursing facility with altered mental status, likely encephalopathy. He does have changes suggestive of pneumonia on his chest x-ray, but these are chronic and lot of combination of postradiation changes and likely resolving infiltrates. He does not appear infected from a respiratory standpoint, though he does have urinary tract infection at this point for which he is being treated. He also likely has an exacerbation of his underlying chronic obstructive pulmonary disease. PROBLEM LIST: 1. COPD with acute exacerbation. 2. Non-small cell lung carcinoma status post XRT in 2014, 2016 and 2017. 3. Right upper lobe infiltrates, likely resolving pneumonia. 4. Postradiation changes, right lower lobe. 5. Scattered bilateral pulmonary opacities. 6. UTI. 7. Vascular dementia. 8. Altered mental status, likely encephalopathy on top of underlying dementia. 9. Sick sinus syndrome, status post pacemaker. 10. Bladder cancer, status post BCG and TURBT. 11. Dysphagia. TREATMENT PLAN: 1. Optimize pulmonary hygiene/mobilize as tolerated. 2. Titrate on FiO2 to keep saturations greater than 90%. 3. Continue Spiriva and Advair. 4. Jzgte-sdc-euesl and p.r.n. bronchodilators. 5. Prednisone 40 mg (today is day #4/5). 6. Observe off Abx per ID 7. Aspiration precautions. 8. DVT prophylaxis, heparin subcutaneous. 9. The patient is a Full Code. 10. Monitor volumes and renal function. Subjective Allergies: Coded Allergies: CEFTRIAXONE (Verified Allergy, Unknown, 09/02/18) LEVOFLOXACIN (Verified Allergy, Unknown, 09/02/18) VANCOMYCIN (Verified Allergy, Unknown, 09/02/18) Subjective AFVSS O2 needs stable Ms waxes and wanes Less cough and SOB no wheezing no F/C Objective Last 24 Hour Vital Signs Date Time Temp Pulse Resp B/P (MAP) Pulse Ox O2 Delivery O2 Flow Rate FiO2 09/05/18 21:00 Nasal Cannula 3.0 Nasal Cannula 3.0 09/05/18 20:35 80 20 98 Nasal Cannula 3.0 32 09/05/18 20:24 86 20 95 Nasal Cannula 3.0 32 09/05/18 20:22 95 Nasal Cannula 3.0 32 09/05/18 20:22 Nasal Cannula 3.0 32 09/05/18 20:22 87 20 94 Nasal Cannula 3.0 32 09/05/18 20:20 87 20 94 Nasal Cannula 3.0 32 09/05/18 20:00 98.4 80 20 119/60 (79) 95 09/05/18 20:00 80 09/05/18 16:00 89 09/05/18 16:00 98.2 88 18 117/62 (80) 99 09/05/18 13:37 85 20 98 Nasal Cannula 3.0 32 09/05/18 13:27 71 18 95 Room Air 21 09/05/18 12:00 84 09/05/18 12:00 98.1 89 19 136/80 (98) 97 09/05/18 09:17 83 20 97 Nasal Cannula 3.0 32 09/05/18 09:16 83 20 97 Nasal Cannula 3.0 32 09/05/18 09:16 83 20 97 Nasal Cannula 3.0 32 09/05/18 09:10 84 20 98 Nasal Cannula 3.0 32 09/05/18 09:00 Nasal Cannula 3.0 Nasal Cannula 3.0 09/05/18 08:47 87 157/86 09/05/18 08:00 97.6 87 18 157/86 (109) 95 09/05/18 08:00 82 09/05/18 07:32 84 20 97 Nasal Cannula 3.0 32 09/05/18 07:26 83 18 97 Nasal Cannula 3.0 32 09/05/18 07:25 Nasal Cannula 3.0 32 09/05/18 07:25 99 Nasal Cannula 3.0 32 09/05/18 04:00 97.4 81 18 131/59 (83) 94 09/05/18 03:28 73 09/05/18 01:35 84 20 97 Nasal Cannula 3.0 32 09/05/18 01:25 81 20 95 Nasal Cannula 3.0 32 09/05/18 00:00 98.1 83 18 129/53 (78) 93 09/04/18 23:25 82 Intake and Output 09/04/18 09/05/18 19:00 07:00 Intake Total 630 ml 55 ml Balance 630 ml 55 ml Intake Oral 630 ml IV Total 55 ml # Voids 5 3 # Bowel Movements 4 3 General Appearance: no acute distress, other - confused HEENT: normocephalic, atraumatic, anicteric, mucous membranes moist Respiratory/Chest: rhonchi Cardiovascular: normal peripheral pulses, normal rate, regular rhythm Abdomen: normal bowel sounds, soft, non tender, no organomegaly, non distended , no mass Extremities: no cyanosis, no clubbing, no edema Microbiology Date/Time Source Procedure Growth Status 09/03/18 05:00 External Cath Urine Culture - Preliminary Gram Positive Cocci Resulted Laboratory Tests 09/05/18 07:10: White Blood Count 4.3L, Red Blood Count 3.97L, Hemoglobin 11.3L, Hematocrit 36.5L, Mean Corpuscular Volume 92, Mean Corpuscular Hemoglobin 28.4, Mean Corpuscular Hemoglobin Concent 30.9L, Red Cell Distribution Width 20.7H, Platelet Count 100L, Mean Platelet Volume 6.4L, Neutrophils (%) (Auto) 72.7, Lymphocytes (%) (Auto) 19.3L, Monocytes (%) (Auto) 6.6, Eosinophils (%) (Auto) 0.4, Basophils (%) (Auto) 1.0, Sodium Level 146H, Potassium Level 4.2, Chloride Level 110H, Carbon Dioxide Level 28, Anion Gap 8, Blood Urea Nitrogen 20H, Creatinine 1.2, Estimat Glomerular Filtration Rate , Glucose Level 81, Calcium Level 9.2 Current Medications Medications (Trade) Dose Ordered Sig/Gaby Route PRN Reason Start Time Stop Time Status Last Admin Dose Admin Acetaminophen (Tylenol) 650 mg Q6H PRN ORAL Mild Pain/Temp > 100.5 09/03/18 22:00 10/03/18 21:59 09/04/18 21:38 Allopurinol (Zyloprim) 100 mg DAILY ORAL 09/03/18 09:00 10/03/18 08:59 09/05/18 08:47 Amiodarone HCl (Cordarone) 100 mg DAILY ORAL 09/03/18 09:00 10/03/18 08:59 09/05/18 08:46 Aspirin (Ecotrin) 81 mg DAILY ORAL 09/03/18 09:00 10/03/18 08:59 09/05/18 08:46 Atorvastatin Calcium (Lipitor) 80 mg BEDTIME ORAL 09/02/18 21:00 10/02/18 20:59 09/05/18 20:15 Dicyclomine HCl (Bentyl) 10 mg QID ORAL 09/02/18 21:00 10/02/18 20:59 09/05/18 20:15 Donepezil HCl (Aricept) 10 mg DAILY ORAL 09/05/18 09:00 10/05/18 08:59 09/05/18 08:46 Finasteride (Proscar) 5 mg DAILY ORAL 09/03/18 09:00 10/03/18 08:59 09/05/18 08:46 Ipratropium [place] (Atrovent) 500 mcg Q6HRT HHN 09/03/18 15:00 09/08/18 14:59 09/05/18 20:23 Memantine (Namenda) 10 mg BID ORAL 09/04/18 18:00 10/04/18 17:59 09/05/18 17:08 Metoprolol Succinate (Toprol XL) 50 mg DAILY ORAL 09/03/18 09:00 10/03/18 08:59 09/05/18 08:47 Pantoprazole (Protonix) 40 mg DAILY ORAL 09/03/18 09:00 10/03/18 08:59 09/05/18 08:46 Prednisone (predniSONE) 40 mg DAILY ORAL 09/03/18 09:00 10/03/18 08:59 09/05/18 08:46 Quetiapine Fumarate (SEROquel) 12.5 mg Q6H PRN ORAL agitation 09/04/18 16:12 10/04/18 16:11 09/05/18 10:57 Salmeterol Xinafoate/ Fluticasone (Advair 250/50 Diskus) 1 puffs BID INH 09/03/18 09:00 10/03/18 08:59 09/05/18 20:20 Tiotropium [place] (Spiriva Inhaler) 1 puff DAILY INH 09/03/18 09:00 10/03/18 08:59 09/05/18 09:07 Elias Quinones MD Sep 05, 2018 22:22
[2018-09-06] VITALS: BP 128/74
[2018-09-06] MEDS: Ipratropium 0.02% Inh Soln 2.5ml UD HHN SCH ×4 (01:56→20:47)
[2018-09-06 04:00] VITALS: BP 152/84
--- NOTE | 2018-09-06 07:30 | NUR ---
HAND-OFF: Report given to Shantel FRANKLIN.
[2018-09-06 08:00] VITALS: BP 142/77
[2018-09-06 08:14] LABS: BASOPHILS % (AUTO) 0.8 % (0.0-2.0); EOSINOPHILS % (AUTO) 0.9 % (0.0-3.0); HEMATOCRIT 35.9 % (42.0-52.0); HEMOGLOBIN 11.3 G/DL (14.2-18.0); LYMPHOCYTES % (AUTO) 16.5 % (20.0-45.0); MEAN CORPUSCULAR VOLUME 90 FL (80-99); MONOCYTES % (AUTO) 6.9 % (1.0-10.0); NEUTROPHILS % (AUTO) 74.9 % (45.0-75.0); PLATELET COUNT 107 K/UL (150-450); RED BLOOD COUNT 3.97 M/UL (4.70-6.10); RED CELL DISTRIBUTION WIDTH 20.2 % (11.6-14.8)
[2018-09-06] MEDS: Advair 250/50 Inhaler - 14 dose INH SCH ×2 (08:20→20:47)
[2018-09-06 08:24] LABS: ANION GAP 8 mmol/L (5-15); BLOOD UREA NITROGEN 21 mg/dL (7-18); CALCIUM 9.6 MG/DL (8.5-10.1); CARBON DIOXIDE 30 MMOL/L (21-32); CHLORIDE 108 MMOL/L (98-107); CREATININE 1.3 MG/DL (0.55-1.30); POTASSIUM 3.8 MMOL/L (3.5-5.1); SODIUM 145 MMOL/L (136-145)
[2018-09-06] MEDS ORDERED: ADVAIR 250/501 PUFFS INH (08:57)
[2018-09-06] MEDS ORDERED: ACETAMINOPHEN325 M1 ORAL (08:57)
[2018-09-06] MEDS ORDERED: IPRATROPIU0.2 MG/1 M HHN (08:57)
[2018-09-06] MEDS ORDERED: SPIRIVA INHALE1 PUF1 INH (08:57)
--- NOTE | 2018-09-06 09:02 | General Progress Note ---
Assessment/Plan Status: stable Assessment/Plan 1. UTI - Off antibiotic and doing well. Urine Cx was consistent with contamination. D/C to [facility] today. 2. Pneumonia probably resolving pneumonia - resolved. recently discharged from [facility]. 3, HTN- controlled 4. A fib - on Amioderone 100 mg one po daily. 5. Bladder CA 6. Non-Small Cell Lung CA s/p XRT in 2014, 2016 and 2018. 7. COPD with acute exacerbation - improved. cont current therapy. will finish steroid today. 8. BPH, status post TURP and BCG. 9. CAD 10. GERD 11. Vascular dementia 12. Sick sinus syndrome, status post pacemaker 13. Encephalopathy probably due to UTI - resolved. 14. Thrombocytopenia probably heparin induced - improved. cont SCD. 15. Generalized weakness - will send to Rehab for further P.T. and O.T. Subjective Date patient seen: Sep 06, 2018 Time patient seen: 08:30 Constitutional: Reports: weakness HEENT: Reports: no symptoms Cardiovascular: Reports: no symptoms Respiratory: Reports: no symptoms Gastrointestinal/Abdominal: Reports: no symptoms Genitourinary: Reports: no symptoms Neurologic/Psychiatric: Reports: no symptoms Endocrine: Reports: no symptoms Hematologic/Lymphatic: Reports: no symptoms Allergies: Coded Allergies: CEFTRIAXONE (Verified Allergy, Unknown, 09/02/18) LEVOFLOXACIN (Verified Allergy, Unknown, 09/02/18) VANCOMYCIN (Verified Allergy, Unknown, 09/02/18) Subjective Today, he is doing well. He is awake. no sob or chest pain. no fever or chills. Objective Last 24 Hour Vital Signs Date Time Temp Pulse Resp B/P (MAP) Pulse Ox O2 Delivery O2 Flow Rate FiO2 09/06/18 08:21 86 21 98 Nasal Cannula 3.0 32 09/06/18 08:21 86 21 98 Nasal Cannula 3.0 32 09/06/18 08:19 83 21 96 Nasal Cannula 3.0 32 09/06/18 08:19 83 21 96 Nasal Cannula 3.0 32 09/06/18 07:59 85 21 98 Nasal Cannula 3.0 32 09/06/18 07:49 87 24 97 Nasal Cannula 3.0 32 09/06/18 07:49 97 Nasal Cannula 3.0 32 09/06/18 07:49 Nasal Cannula 3.0 32 09/06/18 04:00 97.9 84 20 152/84 (106) 96 09/06/18 04:00 83 09/06/18 02:06 84 20 97 Nasal Cannula 3.0 32 09/06/18 01:56 84 20 96 Nasal Cannula 3.0 32 09/06/18 00:00 85 09/06/18 00:00 97.2 86 20 128/74 (92) 95 09/05/18 21:00 Nasal Cannula 3.0 Nasal Cannula 3.0 09/05/18 20:35 80 20 98 Nasal Cannula 3.0 32 09/05/18 20:24 86 20 95 Nasal Cannula 3.0 32 09/05/18 20:22 95 Nasal Cannula 3.0 32 09/05/18 20:22 Nasal Cannula 3.0 32 09/05/18 20:22 87 20 94 Nasal Cannula 3.0 32 09/05/18 20:20 87 20 94 Nasal Cannula 3.0 32 09/05/18 20:00 98.4 80 20 119/60 (79) 95 09/05/18 20:00 80 09/05/18 16:00 89 09/05/18 16:00 98.2 88 18 117/62 (80) 99 09/05/18 13:37 85 20 98 Nasal Cannula 3.0 32 09/05/18 13:27 71 18 95 Room Air 21 09/05/18 12:00 84 09/05/18 12:00 98.1 89 19 136/80 (98) 97 09/05/18 09:17 83 20 97 Nasal Cannula 3.0 32 09/05/18 09:16 83 20 97 Nasal Cannula 3.0 32 09/05/18 09:16 83 20 97 Nasal Cannula 3.0 32 09/05/18 09:10 84 20 98 Nasal Cannula 3.0 32 09/05/18 09:00 Nasal Cannula 3.0 Nasal Cannula 3.0 Intake and Output 09/05/18 09/06/18 18:59 06:59 Intake Total 720 ml Balance 720 ml Intake Oral 720 ml # Voids 2 2 # Bowel Movements 2 Laboratory Tests 09/06/18 06:36: White Blood Count 5.0, Red Blood Count 3.97L, Hemoglobin 11.3L, Hematocrit 35.9L , Mean Corpuscular Volume 90, Mean Corpuscular Hemoglobin 28.5, Mean Corpuscular Hemoglobin Concent 31.6L, Red Cell Distribution Width 20.2H, Platelet Count 107L, Mean Platelet Volume 7.0, Neutrophils (%) (Auto) 74.9, Lymphocytes (%) (Auto) 16.5L, Monocytes (%) (Auto) 6.9, Eosinophils (%) (Auto) 0.9, Basophils (%) (Auto) 0.8, Sodium Level 145, Potassium Level 3.8, Chloride Level 108H, Carbon Dioxide Level 30, Anion Gap 8, Blood Urea Nitrogen 21H, Creatinine 1.3, Estimat Glomerular Filtration Rate , Glucose Level 74, Calcium Level 9.6, Heparin-PF4 Antibody Screen [Pending] Height (Feet): 5 Height (Inches): 8.00 Weight (Pounds): 250 General Appearance: no apparent distress, alert Neck: non-tender, normal alignment, supple Cardiovascular: normal rate, regular rhythm Respiratory/Chest: chest wall non-tender, lungs clear, normal breath sounds Abdomen: non tender, soft, no organomegaly Extremities: normal range of motion, non-tender Edema: no edema noted Arm (L), no edema noted Arm (R), no edema noted Leg (L), no edema noted Leg (R), no edema noted Pedal (L), no edema noted Pedal (R), no edema noted Generalized Neurologic: alert, responsive Skin: warm/dry Lymphatic: normal anterior cervical (L), normal anterior cervical (R), normal posterior cervical (L), normal posterior cervical (R), normal submandibular (L) , normal submandibular (R), normal supraclavicular (L), normal supraclavicular ( R), normal axillary (L), normal axillary (R), normal inguinal (L), normal inguinal (R), normal other Dyana Lennon MD Sep 06, 2018 09:02
--- NOTE | 2018-09-06 09:10 | Pulmonology Progress Note ---
Assessment/Plan Problems: (1) COPD (chronic obstructive pulmonary disease) (2) History of lung cancer (3) Pneumonia (4) Altered level of consciousness (5) UTI (urinary tract infection) (6) Bladder cancer (7) Acute metabolic encephalopathy Assessment/Plan ASSESSMENT: The patient is an 87-year-old male with a history of non-small cell lung carcinoma status post radiation therapy in 2014, 2016 and 2017, chronic obstructive pulmonary disease, bladder cancer status post transurethral resection of prostate and BCG instillation July 2017, vascular dementia, coronary artery disease, sick sinus syndrome, and atrial fibrillation status post pacemaker, presenting from a nursing facility with altered mental status, likely encephalopathy. He does have changes suggestive of pneumonia on his chest x-ray, but these are chronic and lot of combination of postradiation changes and likely resolving infiltrates. He does not appear infected from a respiratory standpoint, though he does have urinary tract infection at this point for which he is being treated. He also likely has an exacerbation of his underlying chronic obstructive pulmonary disease. PROBLEM LIST: 1. COPD with acute exacerbation. 2. Non-small cell lung carcinoma status post XRT in 2014, 2016 and 2017. 3. Right upper lobe infiltrates, likely resolving pneumonia. 4. Postradiation changes, right lower lobe. 5. Scattered bilateral pulmonary opacities. 6. UTI. 7. Vascular dementia. 8. Altered mental status, likely encephalopathy on top of underlying dementia. 9. Sick sinus syndrome, status post pacemaker. 10. Bladder cancer, status post BCG and TURBT. 11. Dysphagia. TREATMENT PLAN: 1. Optimize pulmonary hygiene/mobilize as tolerated. 2. Titrate on FiO2 to keep saturations greater than 90%. 3. Continue Spiriva and Advair. 4. Mrrul-cev-hwozo and p.r.n. bronchodilators. 5. Complete Prednisone 40 mg (today is day #5/5). 6. Observe off Abx per ID 7. Aspiration precautions. 8. DVT prophylaxis: SCD 9. F/U HIT Ab pane, monitor platelets 10. The patient is a Full Code. 11. Monitor volumes and renal function. Subjective Allergies: Coded Allergies: CEFTRIAXONE (Verified Allergy, Unknown, 09/02/18) LEVOFLOXACIN (Verified Allergy, Unknown, 09/02/18) VANCOMYCIN (Verified Allergy, Unknown, 09/02/18) Subjective AFVSS O2 needs stable Ms better more alert Less cough and SOB no wheezing no F/C Objective Last 24 Hour Vital Signs Date Time Temp Pulse Resp B/P (MAP) Pulse Ox O2 Delivery O2 Flow Rate FiO2 09/06/18 08:21 86 21 98 Nasal Cannula 3.0 32 09/06/18 08:21 86 21 98 Nasal Cannula 3.0 32 09/06/18 08:19 83 21 96 Nasal Cannula 3.0 32 09/06/18 08:19 83 21 96 Nasal Cannula 3.0 32 09/06/18 07:59 85 21 98 Nasal Cannula 3.0 32 09/06/18 07:49 87 24 97 Nasal Cannula 3.0 32 09/06/18 07:49 97 Nasal Cannula 3.0 32 09/06/18 07:49 Nasal Cannula 3.0 32 09/06/18 04:00 97.9 84 20 152/84 (106) 96 09/06/18 04:00 83 09/06/18 02:06 84 20 97 Nasal Cannula 3.0 32 09/06/18 01:56 84 20 96 Nasal Cannula 3.0 32 09/06/18 00:00 85 09/06/18 00:00 97.2 86 20 128/74 (92) 95 09/05/18 21:00 Nasal Cannula 3.0 Nasal Cannula 3.0 09/05/18 20:35 80 20 98 Nasal Cannula 3.0 32 09/05/18 20:24 86 20 95 Nasal Cannula 3.0 32 09/05/18 20:22 95 Nasal Cannula 3.0 32 09/05/18 20:22 Nasal Cannula 3.0 32 09/05/18 20:22 87 20 94 Nasal Cannula 3.0 32 09/05/18 20:20 87 20 94 Nasal Cannula 3.0 32 09/05/18 20:00 98.4 80 20 119/60 (79) 95 09/05/18 20:00 80 09/05/18 16:00 89 09/05/18 16:00 98.2 88 18 117/62 (80) 99 09/05/18 13:37 85 20 98 Nasal Cannula 3.0 32 09/05/18 13:27 71 18 95 Room Air 21 09/05/18 12:00 84 09/05/18 12:00 98.1 89 19 136/80 (98) 97 09/05/18 09:17 83 20 97 Nasal Cannula 3.0 32 09/05/18 09:16 83 20 97 Nasal Cannula 3.0 32 09/05/18 09:16 83 20 97 Nasal Cannula 3.0 32 09/05/18 09:10 84 20 98 Nasal Cannula 3.0 32 Intake and Output 09/05/18 09/06/18 18:59 06:59 Intake Total 720 ml Balance 720 ml Intake Oral 720 ml # Voids 2 2 # Bowel Movements 2 General Appearance: cachetic HEENT: normocephalic, atraumatic, anicteric, mucous membranes moist Respiratory/Chest: rhonchi Cardiovascular: normal peripheral pulses, normal rate, regular rhythm Abdomen: normal bowel sounds, soft, non tender, no organomegaly, non distended , no mass Extremities: no cyanosis, no clubbing, no edema Laboratory Tests 09/06/18 06:36: White Blood Count 5.0, Red Blood Count 3.97L, Hemoglobin 11.3L, Hematocrit 35.9L , Mean Corpuscular Volume 90, Mean Corpuscular Hemoglobin 28.5, Mean Corpuscular Hemoglobin Concent 31.6L, Red Cell Distribution Width 20.2H, Platelet Count 107L, Mean Platelet Volume 7.0, Neutrophils (%) (Auto) 74.9, Lymphocytes (%) (Auto) 16.5L, Monocytes (%) (Auto) 6.9, Eosinophils (%) (Auto) 0.9, Basophils (%) (Auto) 0.8, Sodium Level 145, Potassium Level 3.8, Chloride Level 108H, Carbon Dioxide Level 30, Anion Gap 8, Blood Urea Nitrogen 21H, Creatinine 1.3, Estimat Glomerular Filtration Rate , Glucose Level 74, Calcium Level 9.6, Heparin-PF4 Antibody Screen [Pending] Current Medications Medications (Trade) Dose Ordered Sig/Gaby Route PRN Reason Start Time Stop Time Status Last Admin Dose Admin Acetaminophen (Tylenol) 650 mg Q6H PRN ORAL Mild Pain/Temp > 100.5 09/03/18 22:00 10/03/18 21:59 09/04/18 21:38 Allopurinol (Zyloprim) 100 mg DAILY ORAL 09/03/18 09:00 10/03/18 08:59 09/05/18 08:47 Amiodarone HCl (Cordarone) 100 mg DAILY ORAL 09/03/18 09:00 10/03/18 08:59 09/05/18 08:46 Aspirin (Ecotrin) 81 mg DAILY ORAL 09/03/18 09:00 10/03/18 08:59 09/05/18 08:46 Atorvastatin Cal[place] (Lipitor) 80 mg BEDTIME ORAL 09/02/18 21:00 10/02/18 20:59 09/05/18 20:15 Dicyclomine HCl (Bentyl) 10 mg QID ORAL 09/02/18 21:00 10/02/18 20:59 09/05/18 20:15 Donepezil HCl (Aricept) 10 mg DAILY ORAL 09/05/18 09:00 10/05/18 08:59 09/05/18 08:46 Finasteride (Proscar) 5 mg DAILY ORAL 09/03/18 09:00 10/03/18 08:59 09/05/18 08:46 Ipratropium [place] (Atrovent) 500 mcg Q6HRT HHN 09/03/18 15:00 09/08/18 14:59 09/06/18 07:49 Memantine (Namenda) 10 mg BID ORAL 09/04/18 18:00 10/04/18 17:59 09/05/18 17:08 Metoprolol Succinate (Toprol XL) 50 mg DAILY ORAL 09/03/18 09:00 10/03/18 08:59 09/05/18 08:47 Pantoprazole (Protonix) 40 mg DAILY ORAL 09/03/18 09:00 10/03/18 08:59 09/05/18 08:46 Prednisone (predniSONE) 40 mg DAILY ORAL 09/03/18 09:00 10/03/18 08:59 09/05/18 08:46 Quetiapine Fumarate (SEROquel) 12.5 mg Q6H PRN ORAL agitation 09/04/18 16:12 10/04/18 16:11 09/05/18 10:57 Salmeterol Xinafoate/ Fluticasone (Advair 250/50 Diskus) 1 puffs BID INH 09/03/18 09:00 10/03/18 08:59 09/06/18 08:20 Tiotropium [place] (Spiriva Inhaler) 1 puff DAILY INH 09/03/18 09:00 10/03/18 08:59 09/06/18 08:19 Elias Quinones MD Sep 06, 2018 09:10
[2018-09-06] MEDS: Donepezil 10mg tab ORAL SCH (09:21)
[2018-09-06] MEDS: Aspirin EC 81mg tab ORAL SCH (09:21)
[2018-09-06] MEDS: Dicyclomine 10mg Cap ORAL SCH ×4 (09:22→21:14)
[2018-09-06] MEDS: Allopurinol 100mg Tab ORAL SCH (09:22)
[2018-09-06] MEDS: Memantine 10mg tab ORAL SCH ×2 (09:23→18:26)
[2018-09-06] MEDS: Amiodarone 200mg tab ORAL SCH (09:24)
[2018-09-06] MEDS: Metoprolol Succinate XL 50mg tab ORAL SCH (09:24)
--- NOTE | 2018-09-06 10:16 | NUR ---
*-* ERICH PLANNING *-* PATIENT HAS BEEN REFERRED TO: [facility] P:[phone] F:[phone] Addendum: 09/06/18 at 1448 by MALACHI GARZA LVN LVN SPOKE WITH FRENCH AT [facility] ~ NO MALE BEDS TODAY BUT POSSIBLY OVER THE WEEKEND REFERRED TO [facility] ~ PER [facility] ~ UNABLE TO ACCEPT CALLED AND LEFT MESSAGE FOR [facility] [place]~ ASKING IF THEY HAVE BED TO ACCEPT PATIENT BACK MESSAGE LEFT FOR DR COBOS REGARDING ABOVE Addendum: 09/06/18 at 1459 by MALACHI GARZA LVN LVN SPOKE WITH DR MCCARTNEY ~ HE IS AWARE THAT FRENCH AT [facility] SAID SHE WILL POSSIBLY HAVE A BED TOMORROW
[2018-09-06 12:00] VITALS: BP 137/70
--- NOTE | 2018-09-06 13:47 | General Progress Note ---
Assessment/Plan Problem List: (1) Acute metabolic encephalopathy ICD Codes: G93.41 - Metabolic encephalopathy SNOMED: [id number], [id number] Status: stable Assessment/Plan Seroquel 12.5mg po tid prn dw nurse, son Subjective Neurologic/Psychiatric: Reports: anxiety, depressed, emotional problems Allergies: Coded Allergies: CEFTRIAXONE (Verified Allergy, Unknown, 09/02/18) LEVOFLOXACIN (Verified Allergy, Unknown, 09/02/18) VANCOMYCIN (Verified Allergy, Unknown, 09/02/18) Subjective the pt was less agitated today calmer Objective Last 24 Hour Vital Signs Date Time Temp Pulse Resp B/P (MAP) Pulse Ox O2 Delivery O2 Flow Rate FiO2 09/06/18 09:24 86 142/77 09/06/18 08:21 86 21 98 Nasal Cannula 3.0 32 09/06/18 08:21 86 21 98 Nasal Cannula 3.0 32 09/06/18 08:21 86 21 98 Nasal Cannula 3.0 32 09/06/18 08:19 83 21 96 Nasal Cannula 3.0 32 09/06/18 08:19 83 21 96 Nasal Cannula 3.0 32 09/06/18 08:00 97.6 87 18 142/77 (98) 96 09/06/18 07:59 85 21 98 Nasal Cannula 3.0 32 09/06/18 07:49 87 24 97 Nasal Cannula 3.0 32 09/06/18 07:49 97 Nasal Cannula 3.0 32 09/06/18 07:49 Nasal Cannula 3.0 32 09/06/18 04:00 97.9 84 20 152/84 (106) 96 09/06/18 04:00 83 09/06/18 02:06 84 20 97 Nasal Cannula 3.0 32 09/06/18 01:56 84 20 96 Nasal Cannula 3.0 32 09/06/18 00:00 85 09/06/18 00:00 97.2 86 20 128/74 (92) 95 09/05/18 21:00 Nasal Cannula 3.0 Nasal Cannula 3.0 09/05/18 20:35 80 20 98 Nasal Cannula 3.0 32 09/05/18 20:24 86 20 95 Nasal Cannula 3.0 32 09/05/18 20:22 95 Nasal Cannula 3.0 32 09/05/18 20:22 Nasal Cannula 3.0 32 09/05/18 20:22 87 20 94 Nasal Cannula 3.0 32 09/05/18 20:20 87 20 94 Nasal Cannula 3.0 32 09/05/18 20:00 98.4 80 20 119/60 (79) 95 09/05/18 20:00 80 09/05/18 16:00 89 09/05/18 16:00 98.2 88 18 117/62 (80) 99 Intake and Output 09/05/18 09/06/18 19:00 07:00 Intake Total 720 ml Balance 720 ml Intake Oral 720 ml # Voids 2 2 # Bowel Movements 2 Laboratory Tests 09/06/18 06:36: White Blood Count 5.0, Red Blood Count 3.97L, Hemoglobin 11.3L, Hematocrit 35.9L , Mean Corpuscular Volume 90, Mean Corpuscular Hemoglobin 28.5, Mean Corpuscular Hemoglobin Concent 31.6L, Red Cell Distribution Width 20.2H, Platelet Count 107L, Mean Platelet Volume 7.0, Neutrophils (%) (Auto) 74.9, Lymphocytes (%) (Auto) 16.5L, Monocytes (%) (Auto) 6.9, Eosinophils (%) (Auto) 0.9, Basophils (%) (Auto) 0.8, Sodium Level 145, Potassium Level 3.8, Chloride Level 108H, Carbon Dioxide Level 30, Anion Gap 8, Blood Urea Nitrogen 21H, Creatinine 1.3, Estimat Glomerular Filtration Rate , Glucose Level 74, Calcium Level 9.6, Heparin-PF4 Antibody Screen [Pending] Height (Feet): 5 Height (Inches): 8.00 Weight (Pounds): 250 General Appearance: no apparent distress, alert, confused, obese Ramos Rios MD Sep 06, 2018 13:47
[2018-09-06 16:00] VITALS: BP 110/65
--- NOTE | 2018-09-06 16:41 | NUR ---
NURSE NOTES:WOUND CARE NOTES:Pt noted to have incontinence associated dermatitis with moisture denudements and scattered satellite lesions scrotum, groin and buttocks. Pt denied pain when affected area palpated . Both heel are firm and easily blanches.Triad moisture barrier paste applied to affected areas .Cavilon Skin Barrier applied to both heels and off-load with pillow. Recommendations:Apply Moisture Barrier Paste to scrotum,groin and buttocks with each perineal care. Reposition at least every 2hours or as tolerated. Apply Cavilon Skin Barrier to heels and off-load heels with pillow.
--- NOTE | 2018-09-06 17:03 | NUR ---
*-* DISCHARGE PLANNED *-* PATIENT IS DISCHARGED TO: [facility] ROOM[facility]-A [facility] T:[phone] FOR NURSE TO NURSE REPORT [facility] HAS BEEN ARRANGED FOR [facility] [phone] [phone]
--- NOTE | 2018-09-06 17:19 | Infectious Diseases Prog Note ---
Assessment/Plan Problems: (1) UTI (urinary tract infection) Assessment & Plan: culture grew small colony of VRE and yeast , most likely contaminant , renal US ruled out obstruction or mass. monitor off antibiotics , follow up with oncologist for his bladder cancer (2) Altered level of consciousness Assessment & Plan: improved , he is back to base line as per family and caregiver . had CT brain since can't have MRI due to pacemaker, didn't show any acute pathology , continue neuro check , avoid sedatives (3) Pneumonia Assessment & Plan: was ruled out , no clinical evidence of aspiration with improvement in his metal status , not coughing or producing any phlegm , monitor clinically off antibiotics , continue aspiration precaution. had swallow eval and started on special diet (4) COPD (chronic obstructive pulmonary disease) Assessment & Plan: continue inhalers and taper steroids , titrate oxygen as needed (5) Bladder cancer Assessment & Plan: S/P prostatectomy and BCG treatment , follow up with oncology (6) History of lung cancer Assessment & Plan: S/P radiation therapy , follow up with oncologist Subjective Constitutional: Reports: no symptoms HEENT: Reports: no symptoms Respiratory: Reports: no symptoms Breasts: Reports: no symptoms Cardiovascular: Reports: no symptoms Gastrointestinal/Abdominal: Reports: no symptoms Genitourinary: Reports: no symptoms Neurologic: Reports: weakness, confusion Psychiatric: Reports: no symptoms Skin: Reports: no symptoms Endocrine: Reports: no symptoms Hematologic: Reports: no symptoms Musculoskeletal: Reports: no symptoms Allergies: Coded Allergies: CEFTRIAXONE (Verified Allergy, Unknown, 09/02/18) LEVOFLOXACIN (Verified Allergy, Unknown, 09/02/18) VANCOMYCIN (Verified Allergy, Unknown, 09/02/18) Objective Vital Signs Last 24 Hour Vital Signs Date Time Temp Pulse Resp B/P (MAP) Pulse Ox O2 Delivery O2 Flow Rate FiO2 09/06/18 16:00 97.6 86 19 110/65 (80) 96 09/06/18 14:07 85 20 100 Nasal Cannula 2.0 28 09/06/18 13:59 84 22 95 Nasal Cannula 3.0 32 09/06/18 12:00 97.7 69 18 137/70 (92) 98 09/06/18 09:24 86 142/77 09/06/18 09:00 Nasal Cannula 3.0 Nasal Cannula 3.0 09/06/18 08:21 86 21 98 Nasal Cannula 3.0 32 09/06/18 08:21 86 21 98 Nasal Cannula 3.0 32 09/06/18 08:21 86 21 98 Nasal Cannula 3.0 32 09/06/18 08:19 83 21 96 Nasal Cannula 3.0 32 09/06/18 08:19 83 21 96 Nasal Cannula 3.0 32 09/06/18 08:00 97.6 87 18 142/77 (98) 96 09/06/18 08:00 83 09/06/18 07:59 85 21 98 Nasal Cannula 3.0 32 09/06/18 07:49 87 24 97 Nasal Cannula 3.0 32 09/06/18 07:49 97 Nasal Cannula 3.0 32 09/06/18 07:49 Nasal Cannula 3.0 32 09/06/18 04:00 97.9 84 20 152/84 (106) 96 09/06/18 04:00 83 09/06/18 02:06 84 20 97 Nasal Cannula 3.0 32 09/06/18 01:56 84 20 96 Nasal Cannula 3.0 32 09/06/18 00:00 85 09/06/18 00:00 97.2 86 20 128/74 (92) 95 09/05/18 21:00 Nasal Cannula 3.0 Nasal Cannula 3.0 09/05/18 20:35 80 20 98 Nasal Cannula 3.0 32 09/05/18 20:24 86 20 95 Nasal Cannula 3.0 32 09/05/18 20:22 95 Nasal Cannula 3.0 32 09/05/18 20:22 Nasal Cannula 3.0 32 09/05/18 20:22 87 20 94 Nasal Cannula 3.0 32 09/05/18 20:20 87 20 94 Nasal Cannula 3.0 32 09/05/18 20:00 98.4 80 20 119/60 (79) 95 09/05/18 20:00 80 Height (Feet): 5 Height (Inches): 8.00 Weight (Pounds): 250 General Appearance: WD/WN, no acute distress HEENT: normocephalic, atraumatic, anicteric, mucous membranes moist, PERRL, pharynx normal, supple, no JVD Respiratory/Chest: chest wall non-tender, lungs clear, normal breath sounds, no respiratory distress, no accessory muscle use Cardiovascular: normal peripheral pulses, normal rate, regular rhythm, no gallop/murmur, no JVD Abdomen: normal bowel sounds, soft, non tender, no organomegaly, non distended , no mass, no scars Extremities: no cyanosis, no clubbing Skin: no rash, no lesions, no ulcers Neurologic/Psychiatric: alert, responsive Lymphatic: no neck adenopathy, no groin adenopathy Musculoskeletal: normal muscle bulk, no effusion Laboratory Tests Test 09/06/18 06:36 White Blood Count 5.0 K/UL (4.8-10.8) Red Blood Count 3.97 M/UL (4.70-6.10) L Hemoglobin 11.3 G/DL (14.2-18.0) L Hematocrit 35.9 % (42.0-52.0) L Mean Corpuscular Volume 90 FL (80-99) Mean Corpuscular Hemoglobin 28.5 PG (27.0-31.0) Mean Corpuscular Hemoglobin Concent 31.6 G/DL (32.0-36.0) L Red Cell Distribution Width 20.2 % (11.6-14.8) H Platelet Count 107 K/UL (150-450) L Mean Platelet Volume 7.0 FL (6.5-10.1) Neutrophils (%) (Auto) 74.9 % (45.0-75.0) Lymphocytes (%) (Auto) 16.5 % (20.0-45.0) L Monocytes (%) (Auto) 6.9 % (1.0-10.0) Eosinophils (%) (Auto) 0.9 % (0.0-3.0) Basophils (%) (Auto) 0.8 % (0.0-2.0) Sodium Level 145 MMOL/L (136-145) Potassium Level 3.8 MMOL/L (3.5-5.1) Chloride Level 108 MMOL/L (98-107) H Carbon Dioxide Level 30 MMOL/L (21-32) Anion Gap 8 mmol/L (5-15) Blood Urea Nitrogen 21 mg/dL (7-18) H Creatinine 1.3 MG/DL (0.55-1.30) Estimat Glomerular Filtration Rate mL/min (>60) Glucose Level 74 MG/DL (74-106) Calcium Level 9.6 MG/DL (8.5-10.1) Heparin-PF4 Antibody Screen Pending Current Medications Medications (Trade) Dose Ordered Sig/Gaby Route PRN Reason Start Time Stop Time Status Last Admin Dose Admin Acetaminophen (Tylenol) 650 mg Q6H PRN ORAL Mild Pain/Temp > 100.5 09/03/18 22:00 10/03/18 21:59 09/04/18 21:38 Allopurinol (Zyloprim) 100 mg DAILY ORAL 09/03/18 09:00 10/03/18 08:59 09/06/18 09:22 Amiodarone HCl (Cordarone) 100 mg DAILY ORAL 09/03/18 09:00 10/03/18 08:59 09/06/18 09:24 Aspirin (Ecotrin) 81 mg DAILY ORAL 09/03/18 09:00 10/03/18 08:59 09/06/18 09:21 Atorvastatin Calcium (Lipitor) 80 mg BEDTIME ORAL 09/02/18 21:00 10/02/18 20:59 09/05/18 20:15 Dicyclomine HCl (Bentyl) 10 mg QID ORAL 09/02/18 21:00 10/02/18 20:59 09/06/18 13:33 Donepezil HCl (Aricept) 10 mg DAILY ORAL 09/05/18 09:00 10/05/18 08:59 09/06/18 09:21 Finasteride (Proscar) 5 mg DAILY ORAL 09/03/18 09:00 10/03/18 08:59 09/06/18 09:21 Ipratropium [place] (Atrovent) 500 mcg Q6HRT N 09/03/18 15:00 09/08/18 14:59 09/06/18 13:59 Memantine (Namenda) 10 mg BID ORAL 09/04/18 18:00 10/04/18 17:59 09/06/18 09:23 Metoprolol Succinate (Toprol XL) 50 mg DAILY ORAL 09/03/18 09:00 10/03/18 08:59 09/06/18 09:24 Pantoprazole (Protonix) 40 mg DAILY ORAL 09/03/18 09:00 10/03/18 08:59 09/06/18 09:20 Prednisone (predniSONE) 40 mg DAILY ORAL 09/03/18 09:00 10/03/18 08:59 09/06/18 09:25 Quetiapine Fumarate (SEROquel) 12.5 mg Q6H PRN ORAL agitation 09/04/18 16:12 10/04/18 16:11 09/05/18 10:57 Salmeterol Xinafoate/ Fluticasone (Advair 250/50 Diskus) 1 puffs BID INH 09/03/18 09:00 10/03/18 08:59 09/06/18 08:20 Tiotropium [place] (Spiriva Inhaler) 1 puff DAILY INH 09/03/18 09:00 10/03/18 08:59 09/06/18 08:19 Katelyn Nelson M.D. Sep 06, 2018 17:18
--- NOTE | 2018-09-06 19:08 | Cardiac Electrophysiology PN ---
Assessment/Plan Assessment/Plan 1. Paroxysmal atrial fibrillation. In SR on amiodarone 100 mg daily and aspirin 81 mg daily and Toprol-XL 50 mg daily. 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 2. Status post pacemaker. Was recently interrogated by Dr Cortez per family 3. Hypertension. Continue Toprol-XL 50 mg daily. 4. COPD. On Solu-Medrol, antibiotic as well as Advair and Spiriva. 5. Urinary tract infection, on meropenem empirically. 6. Bladder cancer. 7. History of lung cancer, status post radiation therapy. DW RN and family DC plan today to [facility] Subjective Subjective Comfortable in sinus tach with no events. Pleasantly confused . DC planning today Objective Last 24 Hour Vital Signs Date Time Temp Pulse Resp B/P (MAP) Pulse Ox O2 Delivery O2 Flow Rate FiO2 09/06/18 16:00 97.6 86 19 110/65 (80) 96 09/06/18 14:07 85 20 100 Nasal Cannula 2.0 28 09/06/18 13:59 84 22 95 Nasal Cannula 3.0 32 09/06/18 12:00 97.7 69 18 137/70 (92) 98 09/06/18 09:24 86 142/77 09/06/18 09:00 Nasal Cannula 3.0 Nasal Cannula 3.0 09/06/18 08:21 86 21 98 Nasal Cannula 3.0 32 09/06/18 08:21 86 21 98 Nasal Cannula 3.0 32 09/06/18 08:21 86 21 98 Nasal Cannula 3.0 32 09/06/18 08:19 83 21 96 Nasal Cannula 3.0 32 09/06/18 08:19 83 21 96 Nasal Cannula 3.0 32 09/06/18 08:00 97.6 87 18 142/77 (98) 96 09/06/18 08:00 83 09/06/18 07:59 85 21 98 Nasal Cannula 3.0 32 09/06/18 07:49 87 24 97 Nasal Cannula 3.0 32 09/06/18 07:49 97 Nasal Cannula 3.0 32 09/06/18 07:49 Nasal Cannula 3.0 32 09/06/18 04:00 97.9 84 20 152/84 (106) 96 09/06/18 04:00 83 09/06/18 02:06 84 20 97 Nasal Cannula 3.0 32 09/06/18 01:56 84 20 96 Nasal Cannula 3.0 32 09/06/18 00:00 85 09/06/18 00:00 97.2 86 20 128/74 (92) 95 09/05/18 21:00 Nasal Cannula 3.0 Nasal Cannula 3.0 09/05/18 20:35 80 20 98 Nasal Cannula 3.0 32 09/05/18 20:24 86 20 95 Nasal Cannula 3.0 32 09/05/18 20:22 95 Nasal Cannula 3.0 32 09/05/18 20:22 Nasal Cannula 3.0 32 09/05/18 20:22 87 20 94 Nasal Cannula 3.0 32 09/05/18 20:20 87 20 94 Nasal Cannula 3.0 32 09/05/18 20:00 98.4 80 20 119/60 (79) 95 09/05/18 20:00 80 Intake and Output 09/05/18 09/06/18 19:00 07:00 Intake Total 720 ml Balance 720 ml Intake Oral 720 ml # Voids 2 2 # Bowel Movements 2 Laboratory Tests Test 09/06/18 06:36 White Blood Count 5.0 K/UL (4.8-10.8) Red Blood Count 3.97 M/UL (4.70-6.10) L Hemoglobin 11.3 G/DL (14.2-18.0) L Hematocrit 35.9 % (42.0-52.0) L Mean Corpuscular Volume 90 FL (80-99) Mean Corpuscular Hemoglobin 28.5 PG (27.0-31.0) Mean Corpuscular Hemoglobin Concent 31.6 G/DL (32.0-36.0) L Red Cell Distribution Width 20.2 % (11.6-14.8) H Platelet Count 107 K/UL (150-450) L Mean Platelet Volume 7.0 FL (6.5-10.1) Neutrophils (%) (Auto) 74.9 % (45.0-75.0) Lymphocytes (%) (Auto) 16.5 % (20.0-45.0) L Monocytes (%) (Auto) 6.9 % (1.0-10.0) Eosinophils (%) (Auto) 0.9 % (0.0-3.0) Basophils (%) (Auto) 0.8 % (0.0-2.0) Sodium Level 145 MMOL/L (136-145) Potassium Level 3.8 MMOL/L (3.5-5.1) Chloride Level 108 MMOL/L (98-107) H Carbon Dioxide Level 30 MMOL/L (21-32) Anion Gap 8 mmol/L (5-15) Blood Urea Nitrogen 21 mg/dL (7-18) H Creatinine 1.3 MG/DL (0.55-1.30) Estimat Glomerular Filtration Rate mL/min (>60) Glucose Level 74 MG/DL (74-106) Calcium Level 9.6 MG/DL (8.5-10.1) Heparin-PF4 Antibody Screen Pending Objective HEAD AND NECK: No JVD. LUNGS: Coarse rhonchi. CARDIOVASCULAR: Regular S1 and S2 with no gallop or murmur. The pacemaker is in left subclavian. ABDOMEN: Soft. EXTREMITIES: 1+ pitting edema. Reji Willams MD Sep 06, 2018 19:08
--- NOTE | 2018-09-06 19:30 | NUR ---
NURSE NOTES: Received report from Shannon Valdes RN. Pt is resting in 3L NC with humidifier, no distress, is able to make needs known. Pt is ready to be discharged and waiting for Ambulance to [facility]. campus monitor was off and IV has been removed, site is asymptomatic. Pt has been cleaned, dried and repositioned. Bed alarm on, bed in lowest position and breaks are engaged. Call light and side table are w/in reach. Family are at the bed side.
[2018-09-06 20:00] VITALS: BP 131/70
[2018-09-06] MEDS ORDERED: Tubing IV Secondary IV ONE (20:33)
[2018-09-06] MEDS ORDERED: NS 275ml ONE (20:33)
[2018-09-06] MEDS: Atorvastatin 80mg tab ORAL SCH (21:14)
--- NOTE | 2018-09-06 22:44 | NUR ---
NURSE NOTES: [id number], EMT Marcus Mitchell and his company came to berry picker the pt. Pt was given tylenol for his pain and per family request. Family are together with pt. VSS, 3L NC is applied. . Pt has been cleaned and dried. No belongings. Pt was discharged w/o incident.
--- NOTE | 2018-09-10 09:46 | Discharge Summary ---
Discharge Summary Discharge Summary _ DATE OF ADMISSION: 09/02/2018 DATE OF DISCHARGE: 09/06/2018 DISCHARGED BY: Dr. Lennon REASON FOR ADMISSION: 87 years old male with past medical history of malignant neoplasm of the right lung lower lobe lobe, s/p radiation, COPD, bladder cancer, status post BCG and TURBT, BPH, coronary artery disease, paroxysmal atrial fibrillation, hypertension, hyperlipidemia, sick sinus syndrome, status post pacemaker placement, DJD, GERD, hearing loss, vascular dementia without behavioral disturbances, was sent to emergency room for evaluation due to shortness of breath and hypoxia . Patient requiring supplemental oxygen of 4 L of nasal cannula at the [facility] center at [place] to maintain proper oxygenation. Patient was also somewhat altered at the facility. Upon evaluation in emergency department vital signs revealed tachycardia and hypoxia. Laboratory workup revealed no leukocytosis,stable hemoglobin and hematocrit Lactic acid 1.5. Stable electrolytes. BUN 24, creatinine 1.4. Troponin- 0.013. Pro BNP 308. EKG revealed sinus tachycardia, no acute ischemic changes. Chest x-ray revealed right pulmonary infiltrate. Urinalysis revealed evidence of UTI. In the emergency department patient pancultured and started on empiric antibiotic. Patient admitted to telemetry floor for further management. CONSULTANTS: roving inspector Dr. Rangel pulmonary ID specialist Dr. Nelson psychiatrist [facility] COURSE: [employer] Teacher, pest control worker and ID specialist closely followed. Supplemental oxygen provided as needed to keep pulse oximetry above 92%. Pulmonary toilet provided [id number] and as needed. Inhalers/Advair and Spiriva were continued. Patient started on oral steroids and completed 5 days of course. Strict aspiration precautions were maintained. DVT prophylaxis provided. Volumes and renal parameters were closely monitor. Electrolytes corrected as needed and nephrotoxins were avoided. Prior to discharge creatinine down to 1.3, BUN down to 21. Patient with history of non-small cell lung carcinoma, status post radiation therapy in 2015, 2017 and 2018, chronic obstructive pulmonary disease,. Patient has many postradiation changes on in the right lower lobe. Per pest control worker, patient may have resolving pneumonia, however patient also had many chronic changes secondary to postradiation. No clinical evidence of aspiration, no coughing. Antibiotic provided as per ID recommendation. Blood cultures were negative. Urine culture was negative Repeated urine culture revealed enterococcus and Lulu, small colony count. Repeated blood cultures were negative. Patient remained afebrile, no leukocytosis. Renal ultrasound revealed bilateral hydronephrosis , with etiology not demonstrated. Patient completed course of antibiotics. Infectious disease doctor recommended to monitor patient off antibiotic and follow-up with oncologist regarding bladder cancer. ID specialist recommended to keep patient off antibiotics. [employer] closely followed. Echocardiogram revealed preserved ejection fraction 50-55% with mild left ventricular hypertrophy. No evidence of wall motion abnormality. Right ventricular systolic pressure of 46 consistent with moderate pulmonary hypertension. Telemetry revealed paroxysmal atrial fibrillation. Patient spontaneously converted to sinus rhythm. Amiodarone and beta-luana were continued. Antiplatelet therapy with aspirin was continued. Patient was off full anticoagulation in view of bladder cancer and small cell lung cancer. Blood pressure was stable with beta-luana. Allopurinol was continued. No evidence of gout flare. CT of the head revealed no acute intracranial bleeding, mass-effect or edema. Evidence of chronic small vessel disease, involving white matter tracts noted along with atrophy of the brain. Disproportional enlargement of the ventricles, normal pressure hydrocephalus was not excluded. Psychiatrist followed and diagnosed patient with acute metabolic encephalopathy.. Patient started on Seroquel on as needed basis. Aricept and Namenda were continued. Patient noted to have thrombocytopenia with lowest platelet count being of 93. Heparin was stopped. Heparin-induced antibody test still pending. DVT prophylaxis provided with sequential compression device. Prior to transfer platelet count improved up to 107. Continue to monitor platelet counts at the facility. Patient clinically stabilized and was ready for transfer to nursing facility for continuation of care. The best I can do FINAL DIAGNOSES: Urinary tract infection Hypoxic respiratory failure/initially -resolved COPD with acute exacerbation Non-small cell lung carcinoma, status post radiation in 2014, 2016 and 2018 Right upper lobe infiltrate, likely resolving hospital-acquired pneumonia Postradiation changes in right lower lobe Paroxysmal atrial fibrillation Coronary artery disease Hypertension Sick sinus syndrome, status post pacemaker placement Bladder cancer, status post BCG and TURBT Acute metabolic encephalopathy on top of underlying vascular dementia BPH History of gout Thrombocytopenia, likely heparin-induced - improving DISCHARGE MEDICATIONS: See Medication Reconciliation list. DISCHARGE INSTRUCTIONS: Patient was discharged to [facility] under intermediate care. Follow up with medical doctor at the facility. I have been assigned to dictate discharge summary for this account. I was not involved in the patient's management. Lizbeth Aparicio NP Sep 10, 2018 09:46
== END 2018-09-06 22:20 | DRG 689 ==
LOC: EDBD 12:16 → EMR 13:50 → 2E 14:05 → EDBEDREQ 17:00 → 2E 09-06 06:36
DX: N39.0 Urinary tract infection, site not specified (principal); J96.91 Respiratory failure, unspecified with hypoxia; J18.9 Pneumonia, unspecified organism; G93.41 Metabolic encephalopathy; J44.1 Chronic obstructive pulmonary disease with (acute) exacerbation; C34.90 Malignant neoplasm of unspecified part of unspecified bronchus or lung; G93.40 Encephalopathy, unspecified; F01.50 Vascular dementia, unspecified severity, without behavioral disturbance, psychotic disturbance, mood disturbance, and anxiety; Y95 Nosocomial condition; I25.10 Atherosclerotic heart disease of native coronary artery without angina pectoris; J44.9 Chronic obstructive pulmonary disease, unspecified; I10 Essential (primary) hypertension; Z95.0 Presence of cardiac pacemaker; C67.9 Malignant neoplasm of bladder, unspecified; I48.0 Paroxysmal atrial fibrillation; Z92.3 Personal history of irradiation; N40.0 Benign prostatic hyperplasia without lower urinary tract symptoms; E78.5 Hyperlipidemia, unspecified; K21.9 Gastro-esophageal reflux disease without esophagitis; M10.9 Gout, unspecified; Z88.1 Allergy status to other antibiotic agents; R13.10 Dysphagia, unspecified; D75.82 Heparin induced thrombocytopenia (HIT)
CPT/HCPCS: 36415; 36600; 70450; 71045; 76770; 80048; 80053; 81003; 82550; 82553; 82803; 83605; 83880; 84484; 85007; 85025; 86710; 87040; 87081; 87086; 87181; 93005; 93306; 93970; 94640; 94664; 94760; 96365; 96375; 99285; J7620